=== PATIENT | female | born 1950 | race Caucasian/White ===

== ENCOUNTER 2016-11-23 04:25 | Inpatient (IN) | payer MEDICARE, OTHER ==
[2016-11-23] VITALS (12 sets, daily range): BP systolic 115–216; BP diastolic 70–93; PULSE 72–95; RESP 16–18; TEMP 97.6; O2SAT 95–98
[~2016-11-23 04:25] MED LIST: ADVA100A INH; ALPR.5 PO; AMLO10TA2 PO; ASCO500C PO; ASPI325T PO; AZIT250T3 PO; BUPR150XL PO; CALTTAB PO; HYDR-3533 PO; LIPI80TA PO; METO25TA3 PO; MULTCAP13; PLAV75TA29 PO; ROFL1TAB2 PO; SPIRCAP INH
[2016-11-23] MEDS ORDERED: METO25TA3 PO (04:36)
[2016-11-23] MEDS ORDERED: SODIUM CHLORIDE 0.9% FLUSH 5 ML FLUSH IVF PRN ×2 (04:45→06:45)
[2016-11-23] MEDS ORDERED: MORPHINE SULFATE 4 MG/ML INJ IV PUSH ONE (04:45)
[2016-11-23] MEDS ORDERED: ASPIRIN 325 MG TAB PO ONE (04:45)
[2016-11-23] MEDS: METOPROLOL TARTRATE 5 MG/5 ML VIAL IVS SCH ×3 (04:50→05:08)
[2016-11-23] MEDS: NITROGLYCERIN 0.4 MG SL 25 TABS/BTL SL SCH ×3 (04:50→04:56)
--- NOTE | 2016-11-23 04:55 | PD ---
HPI Chief Complaint: Chest Pain Time Seen by Provider: 04:33 Travel History International Travel<30 days: No Contact w/Intl Traveler<30days: No Traveled to known affect area: No History of Present Illness HPI 66 yo F arrives by EMS, c/o chest pain radiating to each shoulder, 10 starting while the patient was at rest, at approx 3am. Hx includes COPD 02 dependent 14/05, CHF, CAD, HTN, & HLD. Pt currnetly ongoing IV abx tx as outpt at Dr Patton office ertapenam and decadron for PNA. She took ASA 325mg at home. PFSH Past Medical History Hx Anticoagulant Therapy: Yes (PLAVIX) Arthritis: Yes Asthma: No Autoimmune Disease: No Blood Disorders: No Anxiety: Yes Depression: Yes Heart Rhythm Problems: No Cancer: No Cardiac Catheterization: Yes Cardiovascular Problems: Yes ([place] X2 ) High Cholesterol: Yes Chemotherapy: No Chest Pain: No Congestive Heart Failure: Yes COPD: Yes (HOME OXYGEN 3L ) Cerebrovascular Accident: No Diabetes: No Diminished Hearing: Yes ([place]) Endocrine: Yes Gastrointestinal Disorders: No GERD: No Genitourinary: Yes Headaches: No Hiatal Hernia: No Hypertension: Yes Immune Disorder: No Implanted Vascular Access Dvce: Yes Kidney Stones: Yes Musculoskeletal: Yes Neurologic: No Psychiatric: Yes Reproductive: No Respiratory: Yes (COPD) Integumentary: No Immunizations Current: Yes Myocardial Infarction: Yes ([place] 1996, 2007-history of [place] and CHF on ventilator) Radiation Therapy: No Renal Failure: No Seizures: No Sickle Cell Disease: No Sleep Apnea: Yes Thyroid Disease: Yes (3 LOBES SURGICALLY REMOVED) Ulcer: Yes Menopausal: Yes : 3 Para: 3 Miscarriage: 0 Tubal Ligation: Yes Past Surgical History Abdominal Surgery: Yes AICD: No Appendectomy: Yes Arteriovenous Shunt: No Body Medical Devices: 2 PLATES LEFT LEG Cardiac Surgery: Yes (CARDIAC STENTS) Coronary Artery Bypass Graft: No Coronary Stent: Yes (X2 1996) Endocrine Surgery: Yes (THYROIDECTOMY ) Hysterectomy: No Insulin Pump: No Joint Replacement: No Pacemaker: No Other Surgery: Yes (APPENDECTOMY 1970, THYROIDECTOMY 1985, HERNIA REPAIR 10/06 ) Social History Alcohol Use: No Tobacco Use: No (NONE SINCE 09/28) Substance Use: No Allergies-Medications (Allergen,Severity, Reaction): Coded Allergies: Lisinopril (Verified Allergy, Severe, COUGH, 09/23/16) NEW ALLERGRY FROM DR. GUADARRAMA'S OFFICE Reported Meds & Prescriptions Reported Meds & Active Scripts Active Reported Metoprolol Tartrate 25 Mg Tab 25 Mg PO BID Azithromycin 250 Mg Tab 250 Mg PO DIRECTED Take 2 tabs (500 mg) on day 1 then 1 tab daily x 4 days. Caltrate 600+D (Calcium Carbonate-Cholecalciferol) 600-800 Mg-Unit Tab 1 Tab PO BID Vitamin C (Ascorbic Acid) 500 Mg Cap 500 Mg PO Multi Complete (Multiple Vitamins W/ Minerals) 1 Cap Cap Spiriva Handihaler (Tiotropium Inh) 18 Mcg Cap 18 Mcg INH DAILY 1 capsule = 18 mcg Advair Diskus Inh (Fluticasone-Salmeterol Inh) 100-50 Mcg/Blist Aer 1 Puff INH BID Rinse mouth after use. Daliresp (Roflumilast) 500 Mcg Tab 500 Mcg PO DAILY Amlodipine (Amlodipine Besylate) 10 Mg Tab 10 Mg PO DAILY Lipitor (Atorvastatin Calcium) 80 Mg Tab 80 Mg PO HS Wellbutrin Xl 24 HR (Bupropion HCl) 150 Mg Tab 150 Mg PO BID Xanax (Alprazolam) 0.5 Mg Tab 0.5 Mg PO BID PRN Aspirin 325 Mg Tab 325 Mg PO DAILY Plavix (Clopidogrel Bisulfate) 75 Mg Tab 75 Mg PO DAILY Review of Systems Except as stated in HPI: all other systems reviewed are Neg Physical Exam Narrative GENERAL: 66 yo F, pleasant, mild distress 2/2 pain and/or anxiety SKIN: Warm and dry. HEAD: Atraumatic. Normocephalic. EYES: Pupils equal and round. No scleral icterus. No injection or drainage. ENT: No nasal bleeding or discharge. Mucous membranes pink and moist. NECK: Trachea midline. No JVD. CARDIOVASCULAR: Tachycardia. Regular rhythm. RESPIRATORY: No accessory muscle use. Clear to auscultation. Breath sounds equal bilaterally. GASTROINTESTINAL: Abdomen soft, non-tender, nondistended. Hepatic and splenic margins not palpable. MUSCULOSKELETAL: Extremities without clubbing, cyanosis, or edema. No obvious deformities. NEUROLOGICAL: Awake and alert. No obvious cranial nerve deficits. Motor grossly within normal limits. Five out of 5 muscle strength in the arms and legs. Normal speech. PSYCHIATRIC: Appropriate mood and affect; insight and judgment normal. Data Data Last Documented VS Vital Signs Date Time Temp Pulse Resp B/P Pulse Ox O2 Delivery O2 Flow Rate FiO2 11/23/16 06:16 81 18 178/80 97 Nasal Cannula 3 11/23/16 04:28 97.6 Orders Electrocardiogram (11/23/16 04:33) Ckmb (Isoenzyme) Profile (11/23/16 04:33) Complete Blood Count With Diff (11/23/16 04:33) Comprehensive Metabolic Panel (11/23/16 04:33) Magnesium (Mg) (11/23/16 04:33) Prothrombin Time / Inr (Pt) (11/23/16 04:33) Act Partial Throm Time (Ptt) (11/23/16 04:33) Troponin I (11/23/16 04:33) Lipase (11/23/16 04:33) Chest, Single Ap (11/23/16 04:33) Ecg Monitoring (11/23/16 04:33) Iv Access Insert/Monitor (11/23/16 04:33) Oximetry (11/23/16 04:33) Oxygen Administration (11/23/16 04:33) Aspirin (Aspirin) (11/23/16 04:45) Morphine Inj (Morphine Inj) (11/23/16 04:45) Sodium Chloride 0.9% Flush (Ns Flush) (11/23/16 04:45) Nitroglycerin Sl (Nitrostat Sl) (11/23/16 04:45) Metoprolol Tartrate Inj (Lopressor Inj) (11/23/16 04:45) B-Type Natriuretic Peptide (11/23/16 05:02) Admit Order (Ed Use Only) (11/23/16 06:35) Activity Bed Rest With Brp (11/23/16 06:35) Vital Signs (Adult) Q4H (11/23/16 06:35) Cardiac Rhythm .As Directed (11/23/16 06:35) ^ Notify Dr: Other .PRN (11/23/16 06:35) ^ Notify . Parameters (11/23/16 06:35) Resp Oxygen Nasal Cannula (11/23/16 ) Ckmb (Isoenzyme) Profile (11/23/16 06:35) Ckmb (Isoenzyme) Profile (11/23/16 09:35) Troponin I (11/23/16 06:35) Troponin I (11/23/16 09:35) Electrocardiogram (11/23/16 06:35) Electrocardiogram (11/23/16 09:35) ^ Obtain (11/23/16 06:35) Sodium Chloride 0.9% Flush (Ns Flush) (11/23/16 06:45) Sodium Chloride 0.9% Flush (Ns Flush) (11/23/16 09:00) Acetamin-Hydrocod 325-7.5 Mg ([place] 7.5 (11/23/16 06:45) Morphine Inj (Morphine Inj) (11/23/16 06:45) Ondansetron Inj (Zofran Inj) (11/23/16 06:45) Nitroglycerin Sl (Nitrostat Sl) (11/23/16 06:45) Temazepam (Restoril) (11/23/16 06:45) Alprazolam (Xanax) (11/23/16 06:45) Magazine Filler / Telemetry KERVIN.Q8H (11/23/16 06:35) Labs Laboratory Tests Test 11/23/16 04:40 White Blood Count 15.9 TH/MM3 Red Blood Count 4.80 MIL/MM3 Hemoglobin 13.4 GM/DL Hematocrit 40.3 % Mean Corpuscular Volume 84.0 FL Mean Corpuscular Hemoglobin 27.8 PG Mean Corpuscular Hemoglobin 33.1 % Concent Red Cell Distribution Width 13.6 % Platelet Count 303 TH/MM3 Mean Platelet Volume 8.7 FL Neutrophils (%) (Auto) 85.3 % Lymphocytes (%) (Auto) 10.1 % Monocytes (%) (Auto) 4.3 % Eosinophils (%) (Auto) 0.1 % Basophils (%) (Auto) 0.2 % Neutrophils # (Auto) 13.6 TH/MM3 Lymphocytes # (Auto) 1.6 TH/MM3 Monocytes # (Auto) 0.7 TH/MM3 Eosinophils # (Auto) 0.0 TH/MM3 Basophils # (Auto) 0.0 TH/MM3 CBC Comment DIFF FINAL Differential Comment Prothrombin Time 10.2 SEC Prothromb Time International 0.9 RATIO Ratio Activated Partial 24.7 SEC Thromboplast Time Sodium Level 139 MEQ/L Potassium Level 3.5 MEQ/L Chloride Level 100 MEQ/L Carbon Dioxide Level 27.5 MEQ/L Anion Gap 12 MEQ/L Blood Urea Nitrogen 24 MG/DL Creatinine 0.82 MG/DL Estimat Glomerular Filtration 70 ML/MIN Rate Random Glucose 165 MG/DL Calcium Level 9.2 MG/DL Magnesium Level 1.8 MG/DL Total Bilirubin 0.3 MG/DL Aspartate Amino Transf 15 U/L (AST/SGOT) Alanine Aminotransferase 22 U/L (ALT/SGPT) Alkaline Phosphatase 66 U/L Total Creatine Kinase 60 U/L Troponin I LESS THAN 0.02 NG/ML B-Type Natriuretic Peptide 44 PG/ML Total Protein 7.2 GM/DL Albumin 3.5 GM/DL Lipase 95 U/L [facility] Medical Decision Making Medical Screen Exam Complete: Yes Emergency Medical Condition: Yes Medical Record Reviewed: Yes Differential Diagnosis NSTEMI, unstable angina, coronary vasospasm, PE, PTX, aortic dissection, pericarditis, myocarditis, endocarditis, PNA, esophageal disease, aneurysm, musculoskeletal etiologies, anxiety, cocaine/sympathomimetic abuse Narrative Course EKG: sinus, rate 97, non-specific ST depressions Last 24 hours Impressions Chest X-Ray 11/23/16 0433 Signed Impressions: Service Date/Time: November 04:43 - CONCLUSION: 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 No acute infiltrates seen. Blayne Loera MD CBC & BMP Diagram 11/23/16 04:40 LFTs normal Lipase normal Tn < 0.02 BNP 44 INR 0.9 Etiology of chest pain is unclear. [employer] work up considered reasonable disposition. As of 633AM pt reports resolution of chest pain. Diagnosis Primary Impression: Chest pain Qualified Code: R07.9 - Chest pain, unspecified type Admitting Information Admitting Physician Requests: Trever Montgomery MD Nov 23, 2016 04:55
[2016-11-23 04:57] LABS: AUTOMATED NEUTROPHIL # 13.6 TH/MM3 (1.8-7.7); BASOPHIL % 0.2 % (0.0-2.0); EOSINOPHIL % 0.1 % (0.0-4.0); HEMATOCRIT 40.3 % (35.0-46.0); HEMO FLAGS DIFF FINAL; LYMPH % 10.1 % (9.0-44.0); LYMPHOCYTE # 1.6 TH/MM3 (1.0-4.8); MEAN CORPUSCULAR HEMOGLOBIN 27.8 PG (27.0-34.0); MEAN CORPUSCULAR HGB CONC 33.1 % (32.0-36.0); MONO % 4.3 % (0.0-8.0); NEUT % 85.3 % (16.0-70.0); PLATELET COUNT 303 TH/MM3 (150-450); RED CELL DISTRIBUTION WIDTH 13.6 % (11.6-17.2); WHITE BLOOD COUNT 15.9 TH/MM3 (4.0-11.0)
[2016-11-23 05:04] LABS: APTT (PATIENT) 24.7 SEC (24.3-30.1); INTERNATIONAL NORMALIZED RATIO 0.9 RATIO; PROTHROMBIN TIME - PATIENT 10.2 SEC (9.8-11.6)
--- NOTE | 2016-11-23 05:15 | RADRPT ---
EXAM DATE/TIME: 11/23/2016 04:43 [facility] COMPARISON: CHEST SINGLE AP, March 06, 2016, 13:37. INDICATIONS : Patient states chest pains. MEDICAL HISTORY : Hypertension. Chronic obstructive pulmonary disease. Myocardial infarction. Hypothyroidism SURGICAL HISTORY : Coronary artery stent. Appendectomy. ENCOUNTER: Initial ACUITY: 1 day PAIN SCORE: 6/10 LOCATION: Bilateral chest FINDINGS: Hyperexpanded lungs with mild basilar predominant chronic interstitial opacities again noted. No acut e infiltrate. No pleural effusion or pneumothorax. Heart size stable, within normal limits. There is bilateral prominence of the pulmonary arteries. 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 No acute infiltrates seen. Blayne Loera MD on November 23, 2016 at 5:12 Board Certified Radiologist. This report was verified electronically.
[2016-11-23 05:25] LABS: ANION GAP 12 MEQ/L (5-15); AST (GOT) 15 U/L (15-37); BICARBONATE 27.5 MEQ/L (21.0-32.0); BLOOD UREA NITROGEN 24 MG/DL (7-18); CHLORIDE 100 MEQ/L (98-107); GLOMERULAR FILTRATION RATE 70 ML/MIN (>89); MAGNESIUM 1.8 MG/DL (1.5-2.5); POTASSIUM 3.5 MEQ/L (3.5-5.1); SODIUM (NA) 139 MEQ/L (136-145)
[2016-11-23 05:29] LABS: ALKALINE PHOSPHATASE 66 U/L (45-117); ALT (GPT) 22 U/L (10-53); TOTAL BILIRUBIN ADULT 0.3 MG/DL (0.2-1.0)
[2016-11-23 05:49] LABS: CREATINE KINASE 60 U/L (26-192)
[2016-11-23] MEDS ORDERED: NITROGLYCERIN 0.4 MG SL 25 TABS/BTL SL PRN (06:45)
[2016-11-23] MEDS ORDERED: ONDANSETRON HCL 4 MG/2 ML VIAL IV PRN (06:45)
[2016-11-23] MEDS ORDERED: MORPHINE SULFATE 4 MG/ML INJ IV PRN (06:45)
[2016-11-23] MEDS ORDERED: TEMAZEPAM 15 MG CAP PO PRN (06:45)
[2016-11-23] MEDS ORDERED: ACETAMINOPHEN/HYDROcodone 325 MG/7.5 MG TAB PO PRN (06:45)
--- NOTE | 2016-11-23 09:39 | PD ---
Physical Exam Date Seen by Provider: Nov 23, 2016 Time Seen by Provider: 09:00 Narrative Patient initially seen by Dr. Contreras overnight and admitted to the chest pain center. However, this morning, patient's second set of cardiac enzymes were elevating to 0.15. On reevaluation at this point, EKG did not show any signs of acute ST changes. Patient is resting comfortably, denies any chest pains currently. She had been given aspirin last night. At this point, case is discussed with Dr. Sevilla for medical admission and she will need cardiology consultation. He is agreeable to accept the admission. Data Data Last Documented VS Vital Signs Date Time Temp Pulse Resp B/P Pulse Ox O2 Delivery O2 Flow Rate FiO2 11/23/16 06:16 81 18 178/80 97 Nasal Cannula 3 11/23/16 04:28 97.6 Orders Electrocardiogram (11/23/16 04:33) Ckmb (Isoenzyme) Profile (11/23/16 04:33) Complete Blood Count With Diff (11/23/16 04:33) Comprehensive Metabolic Panel (11/23/16 04:33) Magnesium (Mg) (11/23/16 04:33) Prothrombin Time / Inr (Pt) (11/23/16 04:33) Act Partial Throm Time (Ptt) (11/23/16 04:33) Troponin I (11/23/16 04:33) Lipase (11/23/16 04:33) Chest, Single Ap (11/23/16 04:33) Ecg Monitoring (11/23/16 04:33) Iv Access Insert/Monitor (11/23/16 04:33) Oximetry (11/23/16 04:33) Oxygen Administration (11/23/16 04:33) Aspirin (Aspirin) (11/23/16 04:45) Morphine Inj (Morphine Inj) (11/23/16 04:45) Sodium Chloride 0.9% Flush (Ns Flush) (11/23/16 04:45) Nitroglycerin Sl (Nitrostat Sl) (11/23/16 04:45) Metoprolol Tartrate Inj (Lopressor Inj) (11/23/16 04:45) B-Type Natriuretic Peptide (11/23/16 05:02) Admit Order (Ed Use Only) (11/23/16 06:35) Activity Bed Rest With Brp (11/23/16 06:35) Vital Signs (Adult) Q4H (11/23/16 06:35) Cardiac Rhythm .As Directed (11/23/16 06:35) ^ Notify Dr: Other .PRN (11/23/16 06:35) ^ Notify Dr. Parameters (11/23/16 06:35) Resp Oxygen Nasal Cannula (11/23/16 ) Ckmb (Isoenzyme) Profile (11/23/16 06:35) Ckmb (Isoenzyme) Profile (11/23/16 09:35) Troponin I (11/23/16 06:35) Troponin I (11/23/16 09:35) Electrocardiogram (11/23/16 06:35) Electrocardiogram (11/23/16 09:35) ^ Obtain (11/23/16 06:35) Sodium Chloride 0.9% Flush (Ns Flush) (11/23/16 06:45) Sodium Chloride 0.9% Flush (Ns Flush) (11/23/16 09:00) Acetamin-Hydrocod 325-7.5 Mg ([place] 7.5 (11/23/16 06:45) Morphine Inj (Morphine Inj) (11/23/16 06:45) Ondansetron Inj (Zofran Inj) (11/23/16 06:45) Nitroglycerin Sl (Nitrostat Sl) (11/23/16 06:45) Temazepam (Restoril) (11/23/16 06:45) Alprazolam (Xanax) (11/23/16 06:45) Habilitative Interventionist / Telemetry KERVIN.Q8H (11/23/16 06:35) Labs Laboratory Tests Test 11/23/16 04:40 White Blood Count 15.9 TH/MM3 Red Blood Count 4.80 MIL/MM3 Hemoglobin 13.4 GM/DL Hematocrit 40.3 % Mean Corpuscular Volume 84.0 FL Mean Corpuscular Hemoglobin 27.8 PG Mean Corpuscular Hemoglobin 33.1 % Concent Red Cell Distribution Width 13.6 % Platelet Count 303 TH/MM3 Mean Platelet Volume 8.7 FL Neutrophils (%) (Auto) 85.3 % Lymphocytes (%) (Auto) 10.1 % Monocytes (%) (Auto) 4.3 % Eosinophils (%) (Auto) 0.1 % Basophils (%) (Auto) 0.2 % Neutrophils # (Auto) 13.6 TH/MM3 Lymphocytes # (Auto) 1.6 TH/MM3 Monocytes # (Auto) 0.7 TH/MM3 Eosinophils # (Auto) 0.0 TH/MM3 Basophils # (Auto) 0.0 TH/MM3 CBC Comment DIFF FINAL Differential Comment Prothrombin Time 10.2 SEC Prothromb Time International 0.9 RATIO Ratio Activated Partial 24.7 SEC Thromboplast Time Sodium Level 139 MEQ/L Potassium Level 3.5 MEQ/L Chloride Level 100 MEQ/L Carbon Dioxide Level 27.5 MEQ/L Anion Gap 12 MEQ/L Blood Urea Nitrogen 24 MG/DL Creatinine 0.82 MG/DL Estimat Glomerular Filtration 70 ML/MIN Rate Random Glucose 165 MG/DL Calcium Level 9.2 MG/DL Magnesium Level 1.8 MG/DL Total Bilirubin 0.3 MG/DL Aspartate Amino Transf 15 U/L (AST/SGOT) Alanine Aminotransferase 22 U/L (ALT/SGPT) Alkaline Phosphatase 66 U/L Total Creatine Kinase 60 U/L Troponin I LESS THAN 0.02 NG/ML B-Type Natriuretic Peptide 44 PG/ML Total Protein 7.2 GM/DL Albumin 3.5 GM/DL Lipase 95 U/L [facility] Medical Record Reviewed: Yes Supervised Visit with JIMMY: No Diagnosis Primary Impression: Chest pain Qualified Code: R07.9 - Chest pain, unspecified type Admitting Information Admitting Physician Requests: it Coby Mendez MD Nov 23, 2016 09:39
[2016-11-23] MEDS: SODIUM CHLORIDE 0.9% FLUSH 5 ML FLUSH IVF SCH ×2 (10:21→23:10)
[2016-11-23] MEDS ORDERED: HEPARIN-D5W INJ 250 ML IV SCH (11:45)
[2016-11-23] MEDS ORDERED: HEPARIN SODIUM - IV 10,000 UNITS/10 ML VIAL IV ONE (11:45)
[2016-11-23] MEDS ORDERED: METOPROLOL TARTRATE 25 MG TAB PO ONE (15:00)
[2016-11-23] MEDS: ASPIRIN 325 MG TAB PO SCH (15:30)
[2016-11-23 15:41] LABS: HEMATOCRIT 38.8 % (35.0-46.0); MEAN CELL VOLUME 83.7 FL (80.0-100.0); MEAN CORPUSCULAR HEMOGLOBIN 27.7 PG (27.0-34.0); MEAN CORPUSCULAR HGB CONC 33.1 % (32.0-36.0); PLATELET COUNT 295 TH/MM3 (150-450); RED BLOOD COUNT 4.63 MIL/MM3 (4.00-5.30); RED CELL DISTRIBUTION WIDTH 14.1 % (11.6-17.2); REVIEW FLAG FINAL; WHITE BLOOD COUNT 17.8 TH/MM3 (4.0-11.0)
[2016-11-23 15:50] LABS: APTT (PATIENT) 65.5 SEC (24.3-30.1); PROTHROMBIN TIME - PATIENT 10.7 SEC (9.8-11.6)
[2016-11-23] MEDS: ALPRAZolam 0.25 MG TAB PO PRN (16:16)
--- NOTE | 2016-11-23 17:40 | HHI.HP ---
cc: Piper Guadarrama MD [facility]ician Piper Guadarrama MD Admission Diagnosis Chest Pain Diagnoses: Chief Complaint: chest pain Travel History International Travel<30 Days: No Contact w/Intl Traveler <30 Da: No Traveled to Known Affected Are: No History of Present Illness 66-year-old female with hx of COPD O2 dependent, CHF, CAD with cardiac stents, HTN, HLD, presents with chest pains, cough, shortness of breath. The patient reports approximately 2 weeks ago she started not feeling well with cough, shortness of breath, and decreased energy. She saw her bottle washer machine Dr. Heart, started on prednisone and completed course of oral antibiotics. She still wasn't feeling well this week so she saw her bottle washer machine Dr. Heart this past Wednesday 11/22, told her she has a left lobe infiltrate and started her on IV infusions with Ertapenem and Decadron. Then early this morning around 3am started having chest tightness while at rest, rated 5/10, with radiation into the shoulders. She thought it could be her COPD with congestion so she took a Sudafed however still wasn't feeling well. 911 was called and she was transported here via [facility]. She was given nitroglycerin en route and her chest pain started improving. The patient had a nuclear stress test in Sep 2016 that showed small size moderate severity fixed perfusion abnormality, no ischemia, low risk. Since her arrival to the ED, her chest pain has resolved however her troponins are trending up, 0.02, 0.15, 0.41. She states her cough and shortness of breath feels at baseline with her COPD. She has no other medical complaints at this time including no fevers/chills, sore throat, abdominal or urinary complaints. Review of Systems Constitutional: DENIES: Diaphoretic episodes, Fever, Chills, Dizziness Endocrine: DENIES: Polydipsia, Polyuria, Polyphagia Eyes: DENIES: Blurred vision, Eye pain, Double Vision Ears, nose, mouth, throat: DENIES: Throat pain, Running Nose, Odynophagia Respiratory: COMPLAINS OF: Cough, Shortness of breath, DENIES: Wheezing Cardiovascular: COMPLAINS OF: Chest pain, DENIES: Palpitations, Syncope, Dyspnea on Exertion, Lower Extremity Edema Gastrointestinal: DENIES: Abdominal pain, Constipation, Diarrhea, Nausea, Vomiting Genitourinary: DENIES: Urinary frequency, Urgency, Dysuria Musculoskeletal: DENIES: Back pain, Neck pain Integumentary: DENIES: Abnormal pigmentation, Pruritus, Rash Hematologic/lymphatic: DENIES: Bruising, Lymphadenopathy Immunologic/allergic: DENIES: Eczema, Urticaria Neurologic: DENIES: Abnormal gait, Headache, Localized weakness Psychiatric: DENIES: Anxiety, Depression Past Family Social History Past Medical History COPD, O2 dependent HTN HI x2, with cardiac stents HLD CHF Past Surgical History Appendectomy Partial thyroidectomy Hernia repair Cardiac cath with stent placement 2 plates left leg Reported Medications Metoprolol Tartrate 25 Mg Tab 25 Mg PO BID Azithromycin 250 Mg Tab 250 Mg PO DIRECTED Take 2 tabs (500 mg) on day 1 then 1 tab daily x 4 days. Caltrate 600+D (Calcium Carbonate-Cholecalciferol) 600-800 Mg-Unit Tab 1 Tab PO BID Vitamin C (Ascorbic Acid) 500 Mg Cap 500 Mg PO Multi Complete (Multiple Vitamins W/ Minerals) 1 Cap Cap Spiriva Handihaler (Tiotropium Inh) 18 Mcg Cap 18 Mcg INH DAILY 1 capsule = 18 mcg Advair Diskus Inh (Fluticasone-Salmeterol Inh) 100-50 Mcg/Blist Aer 1 Puff INH BID Rinse mouth after use. Daliresp (Roflumilast) 500 Mcg Tab 500 Mcg PO DAILY Amlodipine (Amlodipine Besylate) 10 Mg Tab 10 Mg PO DAILY Lipitor (Atorvastatin Calcium) 80 Mg Tab 80 Mg PO HS Wellbutrin Xl 24 HR (Bupropion HCl) 150 Mg Tab 150 Mg PO BID Xanax (Alprazolam) 0.5 Mg Tab 0.5 Mg PO BID PRN Aspirin 325 Mg Tab 325 Mg PO DAILY Plavix (Clopidogrel Bisulfate) 75 Mg Tab 75 Mg PO DAILY Allergies: Coded Allergies: Lisinopril (Verified Allergy, Severe, COUGH, 09/23/16) NEW ALLERGRY FROM DR. GUADARRAMA'S OFFICE Active Ordered Medications Current Medications Medications (Trade) Dose Ordered Sig/Matthew Route Start Time Stop Time Status Last Admin (NS Flush) 2 ml UNSCH PRN IVF 11/23/16 06:45 (NS Flush) 2 ml BID IVF 11/23/16 09:00 11/23/16 10:21 ([place] 7.5-325 Mg) 1 tab Q4H PRN PO 11/23/16 06:45 (Morphine Inj) 2 mg Q4H PRN IV 11/23/16 06:45 (Zofran Inj) 4 mg Q6H PRN IV 11/23/16 06:45 (Nitrostat Sl) 0.4 mg Q5M PRN SL 11/23/16 06:45 (Restoril) 15 mg HS PRN PO 11/23/16 06:45 (Xanax) 0.25 mg Q8H PRN PO 11/23/16 06:45 11/23/16 16:16 (Heparin Inj) 5,000 units UNSCH PRN IV 11/23/16 17:45 Heparin Sodium (Porcine) 2500 units 2,500 units UNSCH PRN IV 11/23/16 17:45 (Heparin-D5W Inj) 250 ml @ 0 mls/hr TITRATE IV 11/23/16 11:45 11/23/16 12:53 (Norvasc) 10 mg DAILY PO 11/23/16 15:30 11/23/16 16:15 (Aspirin) 325 mg DAILY PO 11/23/16 15:30 (Lipitor) 80 mg HS PO 11/23/16 21:00 (Wellbutrin Sr) 150 mg BID PO 11/23/16 21:00 (Plavix) 75 mg DAILY PO 11/24/16 09:00 (Lopressor) 25 mg BID PO 11/23/16 21:00 (Daliresp) 500 mcg DAILY PO 11/24/16 09:00 (Spiriva Inh) 18 mcg DAILY INH 11/24/16 09:00 (Oscal-D 250-125) 500 mg BID PO 11/23/16 21:00 (Symbicort 80-4.5 Mcg Inh) 2 puff BID INH 11/23/16 21:00 Family History Reviewed, no history of heart disease, diabetes Social History Tobacco use - quit in 2007, smoked >1 PPD Alcohol use- denies Illicit drug use- denies Physical Exam Vital Signs Vital Signs Date Time Temp Pulse Resp B/P Pulse Ox O2 Delivery O2 Flow Rate FiO2 11/23/16 14:32 74 18 185/79 97 Nasal Cannula 3 11/23/16 10:15 79 18 182/81 97 Nasal Cannula 3 11/23/16 06:57 98 Nasal Cannula 3.00 11/23/16 06:16 81 18 178/80 97 Nasal Cannula 3 11/23/16 05:31 18 97 3 11/23/16 05:30 83 187/84 195/85 11/23/16 04:37 97 Nasal Cannula 3 11/23/16 04:30 97 18 97 Nasal Cannula 3 11/23/16 04:28 97.6 95 18 216/93 96 Physical Exam GENERAL: Well-nourished, well-developed female patient in NAD. SKIN: Warm and dry. No rash. HEAD: Normocephalic. Atraumatic. EYES: Pupils equal and round. No scleral icterus. No injection or drainage. ENT: No nasal bleeding or discharge. Mucous membranes pink and moist. NECK: Supple. Trachea midline. CARDIOVASCULAR: Regular rate and rhythm. S1, S2 noted. No murmur appreciated. RESPIRATORY: No accessory muscle use. Clear to auscultation. Breath sounds equal bilaterally. GASTROINTESTINAL: Abdomen soft, non-tender, nondistended. Normoactive bowel sounds x4. MUSCULOSKELETAL: No obvious deformities. Extremities without clubbing, cyanosis , or edema. NEUROLOGICAL: Awake and alert. No obvious cranial nerve deficits. Motor grossly within normal limits. Normal speech. PSYCHIATRIC: Appropriate mood and affect; insight and judgment normal. Laboratory Laboratory Tests Test 11/23/16 11/23/16 11/23/16 11/23/16 04:40 07:16 09:50 14:38 White Blood Count 15.9 17.8 Red Blood Count 4.80 4.63 Hemoglobin 13.4 12.8 Hematocrit 40.3 38.8 Mean Corpuscular Volume 84.0 83.7 Mean Corpuscular Hemoglobin 27.8 27.7 Mean Corpuscular Hemoglobin 33.1 33.1 Concent Red Cell Distribution Width 13.6 14.1 Platelet Count 303 295 Mean Platelet Volume 8.7 8.9 Neutrophils (%) (Auto) 85.3 Lymphocytes (%) (Auto) 10.1 Monocytes (%) (Auto) 4.3 Eosinophils (%) (Auto) 0.1 Basophils (%) (Auto) 0.2 Neutrophils # (Auto) 13.6 Lymphocytes # (Auto) 1.6 Monocytes # (Auto) 0.7 Eosinophils # (Auto) 0.0 Basophils # (Auto) 0.0 CBC Comment DIFF FINAL Differential Comment Prothrombin Time 10.2 10.7 Prothromb Time International 0.9 1.0 Ratio Activated Partial 24.7 65.5 Thromboplast Time Sodium Level 139 Potassium Level 3.5 Chloride Level 100 Carbon Dioxide Level 27.5 Anion Gap 12 Blood Urea Nitrogen 24 Creatinine 0.82 Estimat Glomerular Filtration 70 Rate Random Glucose 165 Calcium Level 9.2 Magnesium Level 1.8 Total Bilirubin 0.3 Aspartate Amino Transf 15 (AST/SGOT) Alanine Aminotransferase 22 (ALT/SGPT) Alkaline Phosphatase 66 Total Creatine Kinase 60 57 57 Troponin I LESS THAN 0.02 0.15 0.41 B-Type Natriuretic Peptide 44 Total Protein 7.2 Albumin 3.5 Lipase 95 Result Diagram: 11/23/16 1438 11/23/16 0440 Imaging Last Impressions Chest X-Ray 11/23/16 0433 Signed Impressions: Service Date/Time: November 04:43 - CONCLUSION: 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 No acute infiltrates seen. Blayne Loera MD Assessment and Plan Problem List: (1) Chest pain ICD Code: R07.9 Status: Acute Assessment and Plan 66-year-old female with hx of COPD O2 dependent, CHF, CAD with cardiac stents, HTN, HLD, presents with chest pains. NSTEMI with hx of CAD s/p stents: chest pain with troponins 0.02, 0.15, 0.41. EKG with no acute ST-T changes. Started on IV Heparin drip. Nuclear stress test in Sep 2016 that showed small size moderate severity fixed perfusion abnormality , no ischemia, low risk.Consulted cardiology, discussed with Dr. Contreras, troponin elevated likely secondary to accelerated hypertension, recommends continue medical management for now. Continue patient's metoprolol, aspirin, plavix, statin. Monitor on telemetry. Monitor serial troponins. Accelerated Hypertension: BP 216/93 upon arrival. Likely secondary to recent steroid use and patient's BP meds recently decreased by PCP. Continue patient's metoprolol, norvasc. Recent Pneumonia: patient completed course of azithro as outpatient, then yesterday 11/22 given dose of IV Ertapenem as outpatient per her bottle washer machine Dr. Patton. CXR upon admission unremarkable, images reviewed by me. Discussed with the patient no indication for antibiotics at this time. Monitor for fevers. Leukocytosis: likely steroid induced. No signs of acute infection at this time. Check UA. Monitor. Chronic Respiratory Failure secondary to COPD, on home O2: chronic, stable, continue patient's Spiriva, Advair. HLD: chronic, continue statin. Anxiety/Depression: chronic, continue patient's Wellbutrin and xanax prn. DVT Prophylaxis: on heparin drip. Written by Migdalia Butcher, acting as scribe for Dr. Sevilla on 11/23/16 at 18: 02. The documentation accurately reflects the work performed [id number] by me on at 18:02. Discussed Condition With Patient, Dr. Contreras, patient's daughter Physician Certification 2 Midnight Certification Type: Admission for Inpatient Services Order for Inpatient Services The services are ordered in accordance with Medicare regulations or non- Medicare payer requirements, as applicable. In the case of services not specified as inpatient-only, they are appropriately provided as inpatient services in accordance with the 2-midnight benchmark. Estimated LOS (days): 2 days is the estimated time the patient will need to remain in the hospital, assuming treatment plan goals are met and no additional complications. Post-Hospital Plan: Home Problem Qualifiers (1) Chest pain: Qualified Code: R07.9 - Chest pain, unspecified type Migdalia Butcher PA-C Nov 23, 2016 17:40 Rambo Le MD Nov 28, 2016 13:25
[2016-11-23] MEDS ORDERED: HEPARIN SODIUM - IV 10,000 UNITS/10 ML VIAL IV PRN ×2 (17:45)
--- NOTE | 2016-11-23 17:47 | MB ---
cc: JOHN BROUSSARD SANDRA L. M.D. ENRIQUETA PAPPAS M.D. DATE OF CONSULTATION: 11/23/2016 PRIMARY CARE PHYSICIAN Piper Buitrago MD. [employer] ELASTIC ATTACHER: Enriqueta Pappas MD. REASON FOR CONSULTATION Chest pain mildly elevated troponin, accelerated hypertension. HISTORY OF PRESENT ILLNESS Renu Rosario is a pleasant 66-year-old female who presents to [place] emergency room on November 23, 2016 after event where she had chest pain, headache, and back pain. She states that she was in her usual health over the past few weeks and then started noticing that she was not feeling great. Her import/export freight forwarder prescribes her antibiotic and steroids for when she needs it. She started the regimen of antibiotics and steroids but as of Sunday was not feeling better. She went to see her import/export freight forwarder she had a chest x-ray and felt that she had a left lower lobe pneumonia and started her on InVance and Dexamethasone IV yesterday. Overnight she woke up with a pounding headache. Has the headache increased she started to get some shortness of breath which she states is chronic for her. She also had some mild chest tightness. She attempted to take Sudafed which did not help so she called her daughter to call for a the ambulance. On arrival she was found to have a blood pressure of 216/93. She was originally admitted to the chest pain unit but on checking her troponins they increased to 0.4 and was she was then admitted to the medicine service. Chest pain went away after her blood pressure decreased. PAST MEDICAL HISTORY 1. Coronary artery disease. 2. COPD on home oxygen. 3. Obesity. 4. Hypertension 5. Anxiety. PAST SURGICAL HISTORY 1. Recent ventral hernia repair (September 26, 2016) 2. Left main stenting (2007) at [facility] 3. Appendectomy. 4. Thyroidectomy. 5. Cardiac catheterization (2007) a left main 70-75%, LAD is medium in caliber and irregular. Circumflex is nondominant with a few small proximal obtuse marginal branches. There is a 70% narrowing in the proximal aspect. RCA has a proximal mid section of 50-70%. ALLERGIES LISINOPRIL MEDICATIONS 1. Aspirin 325 mg daily 2. Plavix 75 mg daily 3. Metoprolol tartrate 25 mg b.i.d. 4. Norvasc 10 mg daily 5. Lipitor 8 mg every night 6. Wellbutrin 150 mg b.i.d. 7. Spiriva 18 mcg daily 8. Xanax 0.5 mg b.i.d. 9. Advair 1 puff b.i.d. 10. Azithromycin 500 mg as needed 11. Daliresp 500 mcg daily. FAMILY HISTORY Denies premature coronary artery disease or sudden cardiac within the family. SOCIAL HISTORY Denies current tobacco, alcohol or drug abuse. REVIEW OF SYSTEMS 14 systems were reviewed in the emergency room records and above pertinent positives and negatives above, otherwise negative. PHYSICAL EXAMINATION VITAL SIGNS Temperature 97.6, heart rate 74, blood pressure 185/79, respirations 18, pulse ox 97% on 3 liters. IN GENERAL: The patient appears well. No acute distress, alert, awake and oriented x3. Extraocular muscles intact. Mucous membranes moist. NECK: Supple. No JVD at 45 degrees. No carotid bruits heard bilaterally. Carotid upstroke is brisk in nature. HEART: Heart is regular rate and rhythm. Positive first and second heart sounds with no murmurs, gallops or rubs. LUNGS: The lungs have decreased breath sounds throughout with mild wheezing. ABDOMEN: Abdomen is soft, nontender sent no organomegaly noted. EXTREMITIES: The extremities have trace edema bilaterally with no clubbing or cyanosis. Femoral and distal pulses intact bilaterally. NEUROLOGICALLLY: No focal deficits. Skin: Warm, dry and intact. Osteopathic with mild lordosis. No kyphoscoliosis or paraspinal tender points. LABORATORY FINDINGS White blood cells 15.9, hemoglobin 13.8, hematocrit 40.3, platelets 303. Potassium 3.5, BUN 24, creatinine 0.82, troponin 0.02 increasing to 0.41. Electrocardiogram (November 23, 2016 at 0734) normal sinus rhythm at 73 beats per minute. No acute ST-T wave changes. IMPRESSION 1. Minimally elevated troponin most likely due to accelerated hypertension 2. Accelerated hypertension, possibly due to recent steroids (prednisone and dexamethasone) as well as Sudafed 3. Headache and chest pain due to emergent hypertension. 4. Known coronary artery disease as above with previous left main stenting (2007) 5. Possible left lower lobe pneumonia per outpatient import/export freight forwarder currently on InVance and steroids. 6. Elevated white blood cell count due to recent steroid use. 7. Recent pharmacologic nuclear stress test (November 26, 2015) showing small size moderate severity fixed perfusion abnormality of the inferior lateral and inferior apex. 8. COPD on home oxygen. RECOMMENDATIONS 1. Renu did have mildly elevated troponin but I believe this is due to her hypertensive episode. I spoke to both Renu and her daughter and they are agreeable to medical management with blood pressure control. I did offer consideration of cardiac catheterization but they would like to hold off on this. 2. Renu was here in September and underwent pharmacologic nuclear stress testing which showed an area of possible infarct in the inferior lateral wall which was small area with no ischemia. We will continue with medical management of her cardiac disease. 3. While here for surgery in September she did have episodes of hypertension and her Lopressor was increased. Upon seeing her primary care physician in the outpatient setting her Lopressor was then decreased back to her normal dose. This may show that she has had more episodes of hypertension outpatient but I believe the major cause may be her recent steroid use for her pulmonary issues. 4. We will attempt to increase her Lopressor and watch her blood pressure overnight. 5. I think it is reasonable to keep her on heparin for 24 hours and if the blood pressure is better tomorrow to stop Heparin and possible discharge with close follow-up outpatient for blood pressure control. 6. Further recommendations will be made based on hospital course. Thank you for allowing me to see Renu Rosario, if there are any questions please do not hesitate to call. John Broussard DO VGP/monserrat /2:37 PM /5:06 PM [place]
[2016-11-23 20:42] LABS: BLOOD, URINE LARGE (NEG); COMMENT (UR) CULT NOT INDICATED; CULTURE IF INDICATED CULT NOT INDICATED; GLUCOSE,URINE NEG (NEG); HYALINE CAST, URINE 1 /lpf (RARE); KETONE, URINE NEG (NEG); MUCUS URINE FEW /lpf (OCC); NITRITE,URINE NEG (NEG); PH, URINE 6.5 (5.0-8.5); SQUAMOUS EPITHELIAL CELL URINE 1 /hpf (0-5); URINE COLOR YELLOW (YELLW/STRAW)
[2016-11-23] MEDS ORDERED: METOPROLOL TARTRATE 50 MG TAB PO SCH (21:00)
[2016-11-23] MEDS ORDERED: ATORVASTATIN 80 MG TAB PO SCH (21:00)
[2016-11-23 21:37] LABS: APTT (PATIENT) 40.1 SEC (24.3-30.1)
[2016-11-23] MEDS: BUDESONIDE-FORMOTEROL 80/4.5 MCG INHALER INH SCH (23:10)
[2016-11-23] MEDS: CALCIUM/VITAMIN D 250 MG/125 U TAB PO SCH (23:10)
[2016-11-23] MEDS: METOPROLOL TARTRATE 25 MG TAB PO SCH (23:11)
[2016-11-23] MEDS: buPROPion HCL 150 MG SUSTAINED RELEASE TAB PO SCH (23:11)
[2016-11-24] MEDS: ALPRAZolam 0.25 MG TAB PO PRN ×2 (02:04→10:28)
--- NOTE | 2016-11-24 06:50 | EKG ---
Date Performed: 11/23/2016 Time Performed: 07:34:24 PTAGE: 66 years EKG: Sinus rhythm NORMAL ECG PREVIOUS TRACING : 11/23/2016 04.28 Compared to prior tracing no significant change DOCTOR: Sid Rubio Interpretating Date/Time 11/24/2016 06:47:28
--- NOTE | 2016-11-24 06:53 | EKG ---
Date Performed: 11/23/2016 Time Performed: 04:28:17 PTAGE: 66 years EKG: Sinus rhythm MODERATE ST DEPRESSION ABNORMAL ECG PREVIOUS TRACING : 09/24/2016 05.59 DOCTOR: Sid Rubio Interpretating Date/Time 11/24/2016 06:50:37
[2016-11-24 08:00] VITALS: O2SAT 97
[2016-11-24 08:16] VITALS: BP 152/67; PULSE 68; RESP 18; TEMP 97.8; O2SAT 97
[2016-11-24] MEDS ORDERED: TIOTROPIUM BROMIDE 18 MCG INH INH SCH (09:00)
[2016-11-24] MEDS ORDERED: CLOPIDOGREL 75 MG TAB PO SCH (09:00)
[2016-11-24] MEDS ORDERED: ROFLUMILAST 500 MCG TAB PO SCH (09:00)
[2016-11-24 09:44] VITALS: PULSE 76
[2016-11-24] MEDS: METOPROLOL TARTRATE 25 MG TAB PO SCH (10:28)
[2016-11-24] MEDS: ASPIRIN 325 MG TAB PO SCH (10:28)
[2016-11-24] MEDS: CALCIUM/VITAMIN D 250 MG/125 U TAB PO SCH (10:29)
[2016-11-24] MEDS: buPROPion HCL 150 MG SUSTAINED RELEASE TAB PO SCH (10:29)
[2016-11-24] MEDS: BUDESONIDE-FORMOTEROL 80/4.5 MCG INHALER INH SCH (10:29)
[2016-11-24] MEDS: SODIUM CHLORIDE 0.9% FLUSH 5 ML FLUSH IVF SCH (10:30)
--- NOTE | 2016-11-24 10:42 | PD.CARD.PN ---
Subjective Subjective Remarks No chest pain, no shortness of breath Objective Medications Current Medications Medications (Trade) Dose Ordered Sig/Matthew Route Start Time Stop Time Status Last Admin (NS Flush) 2 ml UNSCH PRN IVF 11/23/16 06:45 (NS Flush) 2 ml BID IVF 11/23/16 09:00 11/24/16 10:30 ([place] 7.5-325 Mg) 1 tab Q4H PRN PO 11/23/16 06:45 (Morphine Inj) 2 mg Q4H PRN IV 11/23/16 06:45 (Zofran Inj) 4 mg Q6H PRN IV 11/23/16 06:45 (Nitrostat Sl) 0.4 mg Q5M PRN SL 11/23/16 06:45 (Restoril) 15 mg HS PRN PO 11/23/16 06:45 (Xanax) 0.25 mg Q8H PRN PO 11/23/16 06:45 11/24/16 10:28 (Heparin Inj) 5,000 units UNSCH PRN IV 11/23/16 17:45 Heparin Sodium (Porcine) 2500 units 2,500 units UNSCH PRN IV 11/23/16 17:45 (Heparin-D5W Inj) 250 ml @ 0 mls/hr TITRATE IV 11/23/16 11:45 11/23/16 12:53 (Norvasc) 10 mg DAILY PO 11/23/16 15:30 11/24/16 10:29 (Aspirin) 325 mg DAILY PO 11/23/16 15:30 11/24/16 10:28 (Lipitor) 80 mg HS PO 11/23/16 21:00 11/23/16 23:15 (Wellbutrin Sr) 150 mg BID PO 11/23/16 21:00 11/24/16 10:29 (Plavix) 75 mg DAILY PO 11/24/16 09:00 11/24/16 10:29 (Lopressor) 25 mg BID PO 11/23/16 21:00 11/24/16 10:28 (Daliresp) 500 mcg DAILY PO 11/24/16 09:00 11/24/16 10:29 (Spiriva Inh) 18 mcg DAILY INH 11/24/16 09:00 11/24/16 10:29 (Oscal-D 250-125) 500 mg BID PO 11/23/16 21:00 11/24/16 10:29 (Symbicort 80-4.5 Mcg Inh) 2 puff BID INH 11/23/16 21:00 11/24/16 10:29 Vital Signs / I&O Vital Signs Date Time Temp Pulse Resp B/P Pulse Ox O2 Delivery O2 Flow Rate FiO2 11/24/16 09:44 76 11/24/16 08:16 97.8 68 18 152/67 97 11/24/16 08:00 97 11/23/16 20:32 72 16 165/79 97 Nasal Cannula 2 11/23/16 19:46 74 16 188/80 95 Nasal Cannula 2 11/23/16 19:11 97 Nasal Cannula 3.00 11/23/16 17:40 97 Nasal Cannula 3.00 11/23/16 14:32 74 18 185/79 97 Nasal Cannula 3 I/O 11/23/16 11/23/16 11/23/16 11/24/16 11/24/16 11/24/16 07:00 15:00 23:00 07:00 15:00 23:00 Output Total 400 ml Balance -400 ml Output Urine Total 400 ml # Voids 1 Physical Exam GENERAL: NAD, AAOx3 SKIN: Warm and dry. HEAD: Atraumatic. Normocephalic. EYES: Pupils equal and round. No scleral icterus. No injection or drainage. ENT: No nasal bleeding or discharge. Mucous membranes pink and moist. NECK: Trachea midline. No JVD. CARDIOVASCULAR: Regular rate and rhythm. RESPIRATORY: No accessory muscle use. Clear to auscultation. Breath sounds equal bilaterally. GASTROINTESTINAL: Abdomen soft, non-tender, nondistended. Hepatic and splenic margins not palpable. MUSCULOSKELETAL: Extremities without clubbing, cyanosis, or edema. No obvious deformities. NEUROLOGICAL: Awake and alert. No obvious cranial nerve deficits. Motor grossly within normal limits. Five out of 5 muscle strength in the arms and legs. Normal speech. PSYCHIATRIC: Appropriate mood and affect; insight and judgment normal. Laboratory Laboratory Tests Test 11/23/16 11/23/16 11/23/16 11/24/16 14:38 20:00 20:50 03:10 White Blood Count 17.8 TH/MM3 Red Blood Count 4.63 MIL/MM3 Hemoglobin 12.8 GM/DL Hematocrit 38.8 % Mean Corpuscular Volume 83.7 FL Mean Corpuscular Hemoglobin 27.7 PG Mean Corpuscular Hemoglobin 33.1 % Concent Red Cell Distribution Width 14.1 % Platelet Count 295 TH/MM3 Mean Platelet Volume 8.9 FL Prothrombin Time 10.7 SEC Prothromb Time International 1.0 RATIO Ratio Activated Partial 65.5 SEC 40.1 SEC 47.0 SEC Thromboplast Time Urine Color YELLOW Urine Turbidity CLEAR Urine pH 6.5 Urine Specific [place] 1.022 Urine Protein 300 mg/dL Urine Glucose (UA) NEG mg/dL Urine Ketones NEG mg/dL Urine Occult Blood LARGE Urine Nitrite NEG Urine Bilirubin NEG Urine Urobilinogen LESS THAN 2.0 MG/DL Urine Leukocyte Esterase SMALL Urine RBC 1 /hpf Urine WBC 1 /hpf Urine Squamous Epithelial 1 /hpf Cells Urine Hyaline Casts 1 /lpf Urine Mucus FEW /lpf Microscopic Urinalysis Comment CULT NOT INDICATED Assessment and Plan Problem List: (1) Hypertension (2) Chest pain (3) Elevated troponin (4) CAD (coronary artery disease) Assessment and Plan 1) Accelerated HTN/Hypertensive emergency on arrival, possibly due to steroids and Sudafed outpatient... will attempt to avoid if possible 2) Blood pressure better controlled today, never placed on increased dose of Lopressor... will continue current regiment, will follow up next week in the office for a blood pressure check, if elevated may need escalation of medications 3) Mildly elevated troponin thought to be secondary to hypertensive episode, recent nuclear stress test showing no ischemia, offered cardiac catheterization , but would like to continue medical management with blood pressure control... if at anytime they change their mind on undergoing cardiac catheterization, then can be re-evaluated 4) Heparin drip stopped 5) Cardiovascularly stable for discharge, await primary's recommendations, will see PRN, call with questions Problem Qualifiers (1) Chest pain: Qualified Code: R07.9 - Chest pain, unspecified type John Contreras DO Nov 24, 2016 10:42
[2016-11-24 12:19] VITALS: BP 143/65; PULSE 63; RESP 20; O2SAT 95
--- NOTE | 2016-11-24 13:04 | HHI.PR ---
Subjective Remarks Follow up for chest pain, elevated troponins. The patient denies any further chest pains. She states her shortness of breath is at baseline. Denies any cough , fevers, or chills. She has been cleared by cardiology. Objective Vitals Vital Signs Date Time Temp Pulse Resp B/P Pulse Ox O2 Delivery O2 Flow Rate FiO2 11/24/16 12:19 63 20 143/65 95 11/24/16 09:44 76 11/24/16 08:16 97.8 68 18 152/67 97 11/24/16 08:00 97 11/23/16 20:32 72 16 165/79 97 Nasal Cannula 2 11/23/16 19:46 74 16 188/80 95 Nasal Cannula 2 11/23/16 19:11 97 Nasal Cannula 3.00 11/23/16 17:40 97 Nasal Cannula 3.00 11/23/16 14:32 74 18 185/79 97 Nasal Cannula 3 I/O 11/23/16 11/23/16 11/23/16 11/24/16 11/24/16 11/24/16 07:00 15:00 23:00 07:00 15:00 23:00 Output Total 400 ml Balance -400 ml Output Urine Total 400 ml # Voids 1 Result Diagram: 11/23/16 1438 11/23/16 0440 Imaging Last Impressions Chest X-Ray 11/23/16 0433 Signed Impressions: Service Date/Time: November 04:43 - CONCLUSION: 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 No acute infiltrates seen. Blayne Loera MD Objective Remarks GENERAL: Well-nourished, well-developed female patient in [facility]. SKIN: Warm and dry. No rash. HEAD: Normocephalic. Atraumatic. EYES: Pupils equal and round. No scleral icterus. No injection or drainage. ENT: No nasal bleeding or discharge. Mucous membranes pink and moist. NECK: Supple. Trachea midline. CARDIOVASCULAR: Regular rate and rhythm. S1, S2 noted. No murmur appreciated. RESPIRATORY: No accessory muscle use. Clear to auscultation. Breath sounds equal bilaterally. GASTROINTESTINAL: Abdomen soft, non-tender, nondistended. Normoactive bowel sounds x4. MUSCULOSKELETAL: No obvious deformities. Extremities without clubbing, cyanosis , or edema. NEUROLOGICAL: Awake and alert. No obvious cranial nerve deficits. Motor grossly within normal limits. Normal speech. PSYCHIATRIC: Appropriate mood and affect; insight and judgment normal. Medications and IVs Current Medications Medications (Trade) Dose Ordered Sig/Matthew Route Start Time Stop Time Status Last Admin (NS Flush) 2 ml UNSCH PRN IVF 11/23/16 06:45 (NS Flush) 2 ml BID IVF 11/23/16 09:00 11/24/16 10:30 (Blue Grass 7.5-325 Mg) 1 tab Q4H PRN PO 11/23/16 06:45 (Morphine Inj) 2 mg Q4H PRN IV 11/23/16 06:45 (Zofran Inj) 4 mg Q6H PRN IV 11/23/16 06:45 (Nitrostat Sl) 0.4 mg Q5M PRN SL 11/23/16 06:45 (Restoril) 15 mg HS PRN PO 11/23/16 06:45 (Xanax) 0.25 mg Q8H PRN PO 11/23/16 06:45 11/24/16 10:28 (Heparin Inj) 5,000 units UNSCH PRN IV 11/23/16 17:45 Heparin Sodium (Porcine) 2500 units 2,500 units UNSCH PRN IV 11/23/16 17:45 (Heparin-D5W Inj) 250 ml @ 0 mls/hr TITRATE IV 11/23/16 11:45 11/23/16 12:53 (Norvasc) 10 mg DAILY PO 11/23/16 15:30 11/24/16 10:29 (Aspirin) 325 mg DAILY PO 11/23/16 15:30 11/24/16 10:28 (Lipitor) 80 mg HS PO 11/23/16 21:00 11/23/16 23:15 (Wellbutrin Sr) 150 mg BID PO 11/23/16 21:00 11/24/16 10:29 (Plavix) 75 mg DAILY PO 11/24/16 09:00 11/24/16 10:29 (Lopressor) 25 mg BID PO 11/23/16 21:00 11/24/16 10:28 (Daliresp) 500 mcg DAILY PO 11/24/16 09:00 11/24/16 10:29 (Spiriva Inh) 18 mcg DAILY INH 11/24/16 09:00 11/24/16 10:29 (Oscal-D 250-125) 500 mg BID PO 11/23/16 21:00 11/24/16 10:29 (Symbicort 80-4.5 Mcg Inh) 2 puff BID INH 11/23/16 21:00 11/24/16 10:29 Urinary Catheter: No Vascular Central Line Catheter: No A/P Problem List: (1) Chest pain ICD Code: R07.9 Status: Acute Assessment and Plan 66-year-old female with hx of COPD O2 dependent, CHF, CAD with cardiac stents, HTN, HLD, presents with chest pains. NSTEMI with hx of CAD s/p stents: chest pain with troponins 0.02, 0.15, 0.41. EKG with no acute ST-T changes. Started on IV Heparin drip. Nuclear stress test in Sep 2016 that showed small size moderate severity fixed perfusion abnormality , no ischemia, low risk. Consulted cardiology, discussed with Dr. Contreras, troponin elevated likely secondary to accelerated hypertension, recommends continue medical management for now. Continue patient's metoprolol, aspirin, plavix, statin. Monitor on telemetry. Cleared for d/c by cardiology. D/c heparin drip. She has follow up appt with her political researcher next week Dr. Ochoa. Accelerated Hypertension: BP 216/93 upon arrival. Likely secondary to recent steroid use and patient's BP meds recently decreased by PCP. Continue patient's metoprolol, norvasc. BP better controlled today. Cleared for d/c by cardiology with outpatient f/up. Recent Pneumonia: patient completed course of azithro as outpatient, then yesterday 11/22 given dose of IV Ertapenem as outpatient per her higher education administrator Dr. Patton. CXR upon admission unremarkable, images reviewed by me. Discussed with the patient no indication for antibiotics at this time. Monitor for fevers. Leukocytosis secondary to recent steroid use. Leukocytosis: likely steroid induced. No signs of acute infection at this time. UA unremarkable, culture not indicated. Monitor. Chronic Respiratory Failure secondary to COPD, on home O2: chronic, stable, continue patient's Spiriva, Advair. HLD: chronic, continue statin. Anxiety/Depression: chronic, continue patient's Wellbutrin and xanax prn. DVT Prophylaxis: d/c heparin drip. Written by Migdalia Butcher, acting as scribe for Dr. Sevilla on 11/24/16 at 13: 02. Discharge Planning Discharge patient to home Condition on discharge: Improved Heart Healthy Diet as tolerated Ad Dayana activity Rx written: no changes to meds, discontinued IV ertapenem and decadron Follow-up with primary care physician and political researcher Dr. Ochoa Attending Statement The documentation accurately reflects the work performed [id number] by me on at 13:02. Problem Qualifiers (1) Chest pain: Qualified Code: R07.9 - Chest pain, unspecified type Migdalia Butcher PA-C Nov 24, 2016 13:04 Rambo Le MD Nov 28, 2016 13:51
[2016-11-24] MEDS ORDERED: METO25TA3 PO (13:26)
--- NOTE | 2016-11-24 13:29 | HHI.DCPOC ---
Discharge Care Plan Diagnosis: (1) Chest pain (2) CAD (coronary artery disease) (3) Hypertension Goals to Promote Your Health * To prevent worsening of your condition and complications * To maintain your health at the optimal level Directions to Meet Your Goals Take your medications as prescribed Follow your dietary instruction Follow activity as directed Keep your appointments as scheduled Take your immunizations and boosters as scheduled If your symptoms worsen call your PCP, if no PCP go to Urgent Care Center or Emergency Room Smoking is Dangerous to Your Health. Avoid second hand smoke Call the 24-hour hour crisis hotline for domestic abuse at Migdalia Butcher PA-C Nov 24, 2016 13:29
--- NOTE | 2016-11-24 13:30 | EKG ---
Date Performed: 11/23/2016 Time Performed: 11:32:40 PTAGE: 66 years EKG: Sinus rhythm NORMAL ECG PREVIOUS TRACING : 11/23/2016 07.34 Since previous tracing, no significant change noted DOCTOR: Enriqueta Ochoa Interpretating Date/Time 11/24/2016 13:29:17
== END 2016-11-24 15:52 | disposition home or self-care (01) | DRG 280 ==
LOC: NEPE 04:25 → NEDA 06:37 → OBSVTOIN 17:48 → NEDA 19:27 → NEPHCDU 21:02
PROVIDERS: ADMIT Hospitalist; ATTEND Hospitalist
DX: I21.4 Non-ST elevation (NSTEMI) myocardial infarction (principal); J18.9 Pneumonia, unspecified organism; J96.10 Chronic respiratory failure, unspecified whether with hypoxia or hypercapnia; I11.0 Hypertensive heart disease with heart failure; I50.9 Heart failure, unspecified; J44.0 Chronic obstructive pulmonary disease with (acute) lower respiratory infection; I16.1 Hypertensive emergency; E78.5 Hyperlipidemia, unspecified; I25.10 Atherosclerotic heart disease of native coronary artery without angina pectoris; I25.2 Old myocardial infarction; G47.30 Sleep apnea, unspecified; T38.0X5A Adverse effect of glucocorticoids and synthetic analogues, initial encounter; H91.90 Unspecified hearing loss, unspecified ear; Z87.442 Personal history of urinary calculi; Z87.891 Personal history of nicotine dependence; Z95.5 Presence of coronary angioplasty implant and graft; Z99.81 Dependence on supplemental oxygen; F41.8 Other specified anxiety disorders
CPT/HCPCS: 71010; 80053; 81001; 82550; 83690; 83735; 83880; 84484; 85025; 85027; 85610; 85730; 93005; 96374; J1644

== ENCOUNTER 2017-02-26 09:44 | Emergency (ER) | payer MEDICARE, OTHER ==
[~2017-02-26] VITALS: Ht 165.1 cm; Wt 90.0 kg
[~2017-02-26 09:44] MED LIST changes: -AZIT250T3 PO; -HYDR-3533 PO
[2017-02-26 09:48] VITALS: BP 159/78; PULSE 101; PULSE 12; RESP 18; TEMP 98.2; O2SAT 93
[2017-02-26 09:52] VITALS: O2SAT 96
[2017-02-26] MEDS ORDERED: RESP: ALBUTEROL 2.5 MG/IPRATROPIUM 0.5 MG NEB (SCH) NEB ONE (10:00)
[2017-02-26] MEDS ORDERED: SODIUM CHLORIDE 0.9% FLUSH 10 ML FLUSH IVF PRN (10:00)
--- NOTE | 2017-02-26 10:13 | PD ---
HPI Chief Complaint: Chest Pain Time Seen by Provider: 09:48 Travel History International Travel<30 days: No Contact w/Intl Traveler<30days: No Traveled to known affect area: No History of Present Illness HPI The patient is a 66-year-old female who presents to the emergency department via EMS for chest pain. The patient states she was taken her daughter's kids to school earlier today, sitting on the [place] in her car, when she developed chest pain. The chest pain was located in left aspect of her chest, radiated down her left arm into the left jaw. The patient's pain lasted for approximately 20-30 minutes and improved with aspirin and nitroglycerin that was administered by EMS. The patient does have a history of coronary artery disease with previous stent placement. The patient does have a history of hypertension, hyperlipidemia, and previous tobacco use. The patient is currently on oxygen and goes to pulmonary rehabilitation several times a week. The patient's primary physician is Dr. Guadarrama. The patient's log cooker is Dr. Heart, and her rope walker is Dr. Ochoa. The patient's pain has currently resolved. She denied any associated nausea, vomiting, or diaphoresis. 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) Endocrine: Yes Gastrointestinal Disorders: No GERD: No Genitourinary: Yes Headaches: No Hiatal Hernia: No Hypertension: Yes Immune Disorder: No Implanted Vascular Access Dvce: Yes Kidney Stones: Yes Musculoskeletal: Yes Neurologic: No Psychiatric: Yes Reproductive: No Respiratory: Yes Integumentary: No Immunizations Current: Yes Myocardial Infarction: Yes (FL 1996, 2007-history of FL and CHF on ventilator) Radiation Therapy: No Renal Failure: No Seizures: No Sickle Cell Disease: No Sleep Apnea: Yes Thyroid Disease: Yes (3 LOBES SURGICALLY REMOVED) Ulcer: Yes Menopausal: Yes : 3 Para: 3 Miscarriage: 0 Tubal Ligation: Yes Past Surgical History Abdominal Surgery: Yes AICD: No Appendectomy: Yes Arteriovenous Shunt: No Body Medical Devices: 2 PLATES LEFT LEG Cardiac Surgery: Yes (CARDIAC STENTS) Coronary Artery Bypass Graft: No Coronary Stent: Yes (X2 1996) Endocrine Surgery: Yes (THYROIDECTOMY 86) Hysterectomy: No Insulin Pump: No Joint Replacement: No Pacemaker: No Other Surgery: Yes (APPENDECTOMY 1970, THYROIDECTOMY 1985, HERNIA REPAIR 10/06 ) Social History Alcohol Use: No Tobacco Use: No (NONE SINCE 09/28) Substance Use: No Allergies-Medications (Allergen,Severity, Reaction): Coded Allergies: Lisinopril (Verified Allergy, Severe, COUGH, 09/23/16) NEW ALLERGRY FROM DR. GUADARRAMA'S OFFICE Reported Meds & Prescriptions Reported Meds & Active Scripts Active Metoprolol Tartrate 25 Mg Tab 25 Mg PO BID Reported Caltrate 600+D (Calcium Carbonate-Cholecalciferol) 600-800 Mg-Unit Tab 1 Tab PO BID Vitamin C (Ascorbic Acid) 500 Mg Cap 500 Mg PO Multi Complete (Multiple Vitamins W/ Minerals) 1 Cap Cap Spiriva Handihaler (Tiotropium Inh) 18 Mcg Cap 18 Mcg INH DAILY 1 capsule = 18 mcg Advair Diskus Inh (Fluticasone-Salmeterol Inh) 100-50 Mcg/Blist Aer 1 Puff INH BID Rinse mouth after use. Daliresp (Roflumilast) 500 Mcg Tab 500 Mcg PO DAILY Amlodipine (Amlodipine Besylate) 10 Mg Tab 10 Mg PO DAILY Lipitor (Atorvastatin Calcium) 80 Mg Tab 80 Mg PO HS Wellbutrin Xl 24 HR (Bupropion HCl) 150 Mg Tab 150 Mg PO BID Xanax (Alprazolam) 0.5 Mg Tab 0.5 Mg PO BID PRN Aspirin 325 Mg Tab 325 Mg PO DAILY Plavix (Clopidogrel Bisulfate) 75 Mg Tab 75 Mg PO DAILY Review of Systems Except as stated in HPI: all other systems reviewed are Neg General / Constitutional: No: Fever HENT: No: Lightheadedness Cardiovascular: Positive: Chest Pain or Discomfort, No: Diaphoresis Respiratory: Positive: Shortness of Breath (chronic) Gastrointestinal: No: Nausea Musculoskeletal: No: Edema Neurologic: No: Dizziness Physical Exam Narrative GENERAL: Awake, alert, very pleasant 66 year-old female who appears her stated age and is in no acute respiratory distress. Patient is on oxygen. SKIN: Focused skin assessment warm/dry. HEAD: Atraumatic. Normocephalic. EYES: Pupils equal and round. No scleral icterus. No injection or drainage. ENT: No nasal bleeding or discharge. Mucous membranes pink and moist. NECK: Trachea midline. No JVD. CARDIOVASCULAR: Regular rate and rhythm. No murmur appreciated. RESPIRATORY: No accessory muscle use. Prolonged expiratory phase with a few scattered rhonchi. GASTROINTESTINAL: Abdomen soft, non-tender, nondistended. No rebound tenderness. MUSCULOSKELETAL: No obvious deformities. No clubbing. No cyanosis. No edema. NEUROLOGICAL: Awake and alert. No obvious cranial nerve deficits. Motor grossly within normal limits. Normal speech. PSYCHIATRIC: Appropriate mood and affect; insight and judgment normal. Data Data Last Documented VS Vital Signs Date Time Temp Pulse Resp B/P Pulse Ox O2 Delivery O2 Flow Rate FiO2 02/26/17 10:32 95 Nasal Cannula 3.00 02/26/17 09:52 100 20 02/26/17 09:48 98.2 159/78 Orders Electrocardiogram (02/26/17 09:59) Ckmb (Isoenzyme) Profile (02/26/17 09:59) Complete Blood Count With Diff (02/26/17 09:59) Comprehensive Metabolic Panel (02/26/17 09:59) Magnesium (Mg) (02/26/17 09:59) Prothrombin Time / Inr (Pt) (02/26/17 09:59) Act Partial Throm Time (Ptt) (02/26/17 09:59) Troponin I (02/26/17 09:59) Lipase (02/26/17 09:59) Chest, Single Ap (02/26/17 09:59) Ecg Monitoring (02/26/17 09:59) Bilateral Bp Monitoring (02/26/17 09:59) Iv Access Insert/Monitor (02/26/17 09:59) Oximetry (02/26/17 09:59) Oxygen Administration (02/26/17 09:59) Sodium Chloride 0.9% Flush (Ns Flush) (02/26/17 10:00) Albuterol-Ipratropium Neb (Duoneb Neb) (02/26/17 10:00) Potassium Chloride Eff (K-Lyte Cl Eff) (02/26/17 10:45) Troponin I (02/26/17 13:05) Ondansetron Inj (Zofran Inj) (02/26/17 13:45) Labs Laboratory Tests Test 02/26/17 02/26/17 10:05 12:55 White Blood Count 11.6 TH/MM3 Red Blood Count 4.53 MIL/MM3 Hemoglobin 12.2 GM/DL Hematocrit 37.7 % Mean Corpuscular Volume 83.1 FL Mean Corpuscular Hemoglobin 26.9 PG Mean Corpuscular Hemoglobin 32.3 % Concent Red Cell Distribution Width 13.2 % Platelet Count 277 TH/MM3 Mean Platelet Volume 8.6 FL Neutrophils (%) (Auto) 64.9 % Lymphocytes (%) (Auto) 21.2 % Monocytes (%) (Auto) 6.6 % Eosinophils (%) (Auto) 6.6 % Basophils (%) (Auto) 0.7 % Neutrophils # (Auto) 7.5 TH/MM3 Lymphocytes # (Auto) 2.5 TH/MM3 Monocytes # (Auto) 0.8 TH/MM3 Eosinophils # (Auto) 0.8 TH/MM3 Basophils # (Auto) 0.1 TH/MM3 CBC Comment DIFF FINAL Differential Comment Prothrombin Time 10.7 SEC Prothromb Time International 1.0 RATIO Ratio Activated Partial 28.7 SEC Thromboplast Time Sodium Level 140 MEQ/L Potassium Level 3.0 MEQ/L Chloride Level 102 MEQ/L Carbon Dioxide Level 29.1 MEQ/L Anion Gap 9 MEQ/L Blood Urea Nitrogen 13 MG/DL Creatinine 0.84 MG/DL Estimat Glomerular Filtration 68 ML/MIN Rate Random Glucose 164 MG/DL Calcium Level 8.8 MG/DL Magnesium Level 1.5 MG/DL Total Bilirubin 0.3 MG/DL Aspartate Amino Transf 18 U/L (AST/SGOT) Alanine Aminotransferase 20 U/L (ALT/SGPT) Alkaline Phosphatase 79 U/L Total Creatine Kinase 63 U/L Troponin I LESS THAN 0.02 0.02 NG/ML NG/ML Total Protein 6.7 GM/DL Albumin 3.2 GM/DL Lipase 113 U/L Exceptions Acute Myocardial Infarction ASA Not Given on Arrival: Already Given by EMS [facility] Medical Decision Making Medical Screen Exam Complete: Yes Emergency Medical Condition: Yes Medical Record Reviewed: Yes Interpretation(s) EKG reveals normal sinus rhythm with a rate of 94. Q wave noted in lead 3. Last Impressions Chest X-Ray 02/26/17 0959 Signed Impressions: Service Date/Time: Sunday, February 26, 2017 10:01 - CONCLUSION: Minimal bibasilar parenchymal changes worse on the right. Considerations would include both atelectasis and inflammatory process. Yan Roy MD FACR Laboratory Tests Test 02/26/17 02/26/17 10:05 12:55 White Blood Count 11.6 TH/MM3 Red Blood Count 4.53 MIL/MM3 Hemoglobin 12.2 GM/DL Hematocrit 37.7 % Mean Corpuscular Volume 83.1 FL Mean Corpuscular Hemoglobin 26.9 PG Mean Corpuscular Hemoglobin 32.3 % Concent Red Cell Distribution Width 13.2 % Platelet Count 277 TH/MM3 Mean Platelet Volume 8.6 FL Neutrophils (%) (Auto) 64.9 % Lymphocytes (%) (Auto) 21.2 % Monocytes (%) (Auto) 6.6 % Eosinophils (%) (Auto) 6.6 % Basophils (%) (Auto) 0.7 % Neutrophils # (Auto) 7.5 TH/MM3 Lymphocytes # (Auto) 2.5 TH/MM3 Monocytes # (Auto) 0.8 TH/MM3 Eosinophils # (Auto) 0.8 TH/MM3 Basophils # (Auto) 0.1 TH/MM3 CBC Comment DIFF FINAL Differential Comment Prothrombin Time 10.7 SEC Prothromb Time International 1.0 RATIO Ratio Activated Partial 28.7 SEC Thromboplast Time Sodium Level 140 MEQ/L Potassium Level 3.0 MEQ/L Chloride Level 102 MEQ/L Carbon Dioxide Level 29.1 MEQ/L Anion Gap 9 MEQ/L Blood Urea Nitrogen 13 MG/DL Creatinine 0.84 MG/DL Estimat Glomerular Filtration 68 ML/MIN Rate Random Glucose 164 MG/DL Calcium Level 8.8 MG/DL Magnesium Level 1.5 MG/DL Total Bilirubin 0.3 MG/DL Aspartate Amino Transf 18 U/L (AST/SGOT) Alanine Aminotransferase 20 U/L (ALT/SGPT) Alkaline Phosphatase 79 U/L Total Creatine Kinase 63 U/L Troponin I LESS THAN 0.02 0.02 NG/ML NG/ML Total Protein 6.7 GM/DL Albumin 3.2 GM/DL Lipase 113 U/L Differential Diagnosis Differential diagnosis includes acute coronary syndrome, angina, GERD, esophageal spasm, bronchitis, pneumonia, COPD exacerbation. Narrative Course IV was established, labs are drawn and sent, and the patient was placed on cardiac telemetry monitoring and continuous pulse oximetry monitoring. EKG was ordered and interpreted. Chest x-ray was obtained. The patient received aspirin and nitroglycerin orally prior to arrival. The initial troponin was negative. Chest x-ray reveals atelectasis in the bases versus acute inflammatory process. I had a discussion with the on-call physician for Dr. Sinha, Dr. Sparks, and after discussion it was agreed we would repeat the troponin and if negative the patient will be placed back on Imdur follow-up with her rope walker in the office. The patient is comfortable with this plan of care. Therefore, the 3 hour troponin was ordered for 1:05 PM. The second troponin was negative at 0.02. I had a discussion with the patient, she states she still takes Imdur 30 mg per day, it was on her medication list from her wallet. She is advised to continue the Imdur. The patient will be provided a copy of her labs, chest x-ray, and EKG at discharge and is advised to follow-up with her rope walker either today or tomorrow. Return if symptoms worsen or progress. Diagnosis Primary Impression: Chest pain Qualified Code: R07.9 - Chest pain, unspecified type Patient Instructions: General Instructions Additional Instructions: Please provide the patient a copy of her chest x-ray results, EKG results, and lab results at discharge. Continue Imdur and previous medications as directed. Follow-up with your rope walker, call his office today. Return if symptoms worsen or progress. Disposition: 01 DISCHARGE HOME Condition: Stable Jose Patterson MD February 26, 2017 10:12
[2017-02-26 10:16] LABS: AUTOMATED NEUTROPHIL # 7.5 TH/MM3 (1.8-7.7); BASOPHIL # 0.1 TH/MM3 (0-0.2); BASOPHIL % 0.7 % (0.0-2.0); EOSINOPHIL # 0.8 TH/MM3 (0-0.4); EOSINOPHIL % 6.6 % (0.0-4.0); HEMATOCRIT 37.7 % (35.0-46.0); HEMO FLAGS DIFF FINAL; LYMPH % 21.2 % (9.0-44.0); LYMPHOCYTE # 2.5 TH/MM3 (1.0-4.8); MEAN CELL VOLUME 83.1 FL (80.0-100.0); MEAN CORPUSCULAR HEMOGLOBIN 26.9 PG (27.0-34.0); MEAN CORPUSCULAR HGB CONC 32.3 % (32.0-36.0); MONO % 6.6 % (0.0-8.0); NEUT % 64.9 % (16.0-70.0); PLATELET COUNT 277 TH/MM3 (150-450); RED BLOOD COUNT 4.53 MIL/MM3 (4.00-5.30); RED CELL DISTRIBUTION WIDTH 13.2 % (11.6-17.2); WHITE BLOOD COUNT 11.6 TH/MM3 (4.0-11.0)
--- NOTE | 2017-02-26 10:24 | RADRPT ---
EXAM DATE/TIME: 02/26/2017 10:01 [facility] COMPARISON: CHEST SINGLE AP, November 23, 2016, 4:43. INDICATIONS : Mid sternal chest pains, prior stents. MEDICAL HISTORY : Myocardial infarction. SURGICAL HISTORY : Coronary artery stent. ENCOUNTER: Initial ACUITY: 1 day PAIN SCORE: 8/10 LOCATION: Bilateral chest FINDINGS: There are minimal bibasilar parenchymal changes worse on the right than the left. The heart and pulm onary vascularity are normal. The portion of the bony skeleton visualized is unremarkable. CONCLUSION: Minimal bibasilar parenchymal changes worse on the right. Considerations would include both atelecta sis and inflammatory process. Yan Roy MD FACR on February 26, 2017 at 10:21 Board Certified Radiologist. This report was verified electronically.
[2017-02-26 10:26] LABS: APTT (PATIENT) 28.7 SEC (24.3-30.1); PROTHROMBIN TIME - PATIENT 10.7 SEC (9.8-11.6)
[2017-02-26 10:32] VITALS: O2SAT 95
[2017-02-26 10:33] LABS: ANION GAP 9 MEQ/L (5-15); AST (GOT) 18 U/L (15-37); BICARBONATE 29.1 MEQ/L (21.0-32.0); BLOOD UREA NITROGEN 13 MG/DL (7-18); CHLORIDE 102 MEQ/L (98-107); GLOMERULAR FILTRATION RATE 68 ML/MIN (>89); MAGNESIUM 1.5 MG/DL (1.5-2.5); SODIUM (NA) 140 MEQ/L (136-145)
[2017-02-26 10:38] LABS: ALKALINE PHOSPHATASE 79 U/L (45-117); ALT (GPT) 20 U/L (10-53); TOTAL BILIRUBIN ADULT 0.3 MG/DL (0.2-1.0)
[2017-02-26 10:43] LABS: CREATINE KINASE 63 U/L (26-192)
[2017-02-26] MEDS ORDERED: POTASSIUM CHLORIDE 25 MEQ EFFERVESCENT TAB PO ONE (10:45)
--- NOTE | 2017-02-26 11:34 | EKG ---
Date Performed: 02/26/2017 Time Performed: 09:59:10 PTAGE: 66 years EKG: Sinus rhythm POSSIBLE INFERIOR MYOCARDIAL INFARCTION BORDERLINE ECG PREVIOUS TRACING : 11/23/2016 11.32 DOCTOR: Zack Meyer Interpretating Date/Time 02/26/2017 11:31:33
[2017-02-26] MEDS ORDERED: ONDANSETRON HCL 4 MG/2 ML VIAL IV PUSH ONE (13:45)
[2017-02-26 14:15] VITALS: BP 168/74
== END 2017-02-26 15:11 | disposition home or self-care (01) ==
LOC: NEPE 09:44
DX: R07.9 Chest pain, unspecified (principal); R94.31 Abnormal electrocardiogram [ECG] [EKG]; I25.10 Atherosclerotic heart disease of native coronary artery without angina pectoris; I10 Essential (primary) hypertension; I50.9 Heart failure, unspecified; Z79.01 Long term (current) use of anticoagulants
CPT/HCPCS: 71010; 80053; 82550; 83690; 83735; 84484; 85025; 85610; 85730; 93005; 94664; 96374; 99285; J2405

== ENCOUNTER 2017-07-01 19:36 | Emergency (ER) | payer MEDICARE, OTHER ==
[~2017-07-01] VITALS: Ht 160 cm; Wt 89.0 kg
[2017-07-01] MEDS ORDERED: IOHEXOL 350 MG/ML 10 ML VIAL (for RAD DIAG) IVCONTRAST ONE (19:37)
[2017-07-01 19:42] VITALS: BP 164/74; PULSE 75; RESP 18; TEMP 98.4; O2SAT 91
[2017-07-01] MEDS ORDERED: DIATRIZOATE MEGLUM/DIATRIZOATE SOD 9 ML CUP ONE (19:54)
[2017-07-01 19:55] VITALS: RESP 18; O2SAT 95
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
[2017-07-01] MEDS ORDERED: SODIUM CHLORIDE 0.9% FLUSH 10 ML FLUSH IV FLUSH PRN (20:00)
[2017-07-01 20:20] LABS: AUTOMATED NEUTROPHIL # 10.5 TH/MM3 (1.8-7.7); BASOPHIL # 0.1 TH/MM3 (0-0.2); EOSINOPHIL # 0.4 TH/MM3 (0-0.4); EOSINOPHIL % 3.1 % (0.0-4.0); HEMATOCRIT 43.9 % (35.0-46.0); HEMO FLAGS DIFF FINAL; LYMPHOCYTE # 1.5 TH/MM3 (1.0-4.8); MEAN CELL VOLUME 84.3 FL (80.0-100.0); MEAN CORPUSCULAR HEMOGLOBIN 27.1 PG (27.0-34.0); MEAN CORPUSCULAR HGB CONC 32.2 % (32.0-36.0); MONO % 5.8 % (0.0-8.0); NEUT % 79.1 % (16.0-70.0); PLATELET COUNT 211 TH/MM3 (150-450); WHITE BLOOD COUNT 13.2 TH/MM3 (4.0-11.0)
--- NOTE | 2017-07-01 20:21 | RADRPT ---
EXAM DATE/TIME: 07/01/2017 20:08 [facility] COMPARISON: CHEST SINGLE AP, February 26, 2017, 10:01. INDICATIONS : Cough and short of breath. MEDICAL HISTORY : Myocardial infarction. Chronic obstructive pulmonary disease. SURGICAL HISTORY : Coronary artery stent. ENCOUNTER: Initial ACUITY: >1 year PAIN SCORE: 0/10 LOCATION: Bilateral chest FINDINGS: There is slight interstitial infiltrate at the left lung base. No evidence of effusion. Cardiac conto urs are grossly stable. CONCLUSION: Mild interstitial infiltrate in left base Blayne Valenzuela MD on July 01, 2017 at 20:18 Board Certified Radiologist. This report was verified electronically.
[2017-07-01 20:38] LABS: ALT (GPT) 27 U/L (10-53)
[2017-07-01 20:42] LABS: ALKALINE PHOSPHATASE 82 U/L (45-117); ANION GAP 8 MEQ/L (5-15); AST (GOT) 22 U/L (15-37); BLOOD UREA NITROGEN 20 MG/DL (7-18); CHLORIDE 102 MEQ/L (98-107); CREATINE KINASE 61 U/L (26-192); GLOMERULAR FILTRATION RATE 85 ML/MIN (>89); MAGNESIUM 1.8 MG/DL (1.5-2.5); SODIUM (NA) 141 MEQ/L (136-145); TOTAL BILIRUBIN ADULT 0.3 MG/DL (0.2-1.0)
[2017-07-01] MEDS ORDERED: SODIUM CHLORID 0.9% 500 ML INJ 500 ML IV ONE (20:45)
[2017-07-01 21:00] LABS: APTT (PATIENT) 25.2 SEC (24.3-30.1); PROTHROMBIN TIME - PATIENT 10.7 SEC (9.8-11.6)
--- NOTE | 2017-07-01 21:54 | RADRPT ---
EXAM DATE/TIME: 07/01/2017 21:30 [facility] COMPARISON: CT ABDOMEN & PELVIS W CONTRAST, September 23, 2016, 20:46. INDICATIONS : Abdominal pain with nausea, vomiting and diarrhea. IV CONTRAST: 90 cc Omnipaque 350 (iohexol) IV ORAL CONTRAST: Partial prescribed oral contrast ingested. RADIATION DOSE: 20.20 CTDIvol (mGy) MEDICAL HISTORY : Myocardial infarction. Chronic obstructive pulmonary disease. Renal calculi.Hypertension. Congestive heart failure. SURGICAL HISTORY : Appendectomy. Tubal ligation.Thyroidectomy.Hernia repair. ENCOUNTER: Initial ACUITY: 1 day PAIN SCALE: 4/10 LOCATION: Bilateral abdomen TECHNIQUE: Volumetric scanning of the abdomen and pelvis was performed. Using automated exposure control and ad justment of the mA and/or kV according to patient size, radiation dose was kept as low as reasonably achievable to obtain optimal diagnostic quality images. DICOM format image data is available electro nically for review and comparison. FINDINGS: LOWER LUNGS: The visualized lower lungs are clear. LIVER: Homogeneous density without lesion. There is no dilation of the biliary tree. Numerous calcified gal lstones are again noted. A SPLEEN: Normal size without lesion. PANCREAS: Within normal limits. KIDNEYS: Normal in size and shape. There is no mass, stone or hydronephrosis. ADRENAL GLANDS: Within normal limits. VASCULAR: Densely calcified plaque is present throughout the aorta and iliac vessels. Calcified plaque is also noted at the origin of the aortic branches. Hemodynamically significant stenoses appear to be present at the origin of the celiac artery, ri ght renal artery origin and external iliac arteries. BOWEL/MESENTERY: Numerous diverticula present of the descending and sigmoid colon. There is no active inflammatory diane nges. There is no evidence of free air or ileus. ABDOMINAL WALL: Within normal limits. RETROPERITONEUM: There is no lymphadenopathy. BLADDER: No wall thickening or mass. REPRODUCTIVE: Within normal limits. INGUINAL: There is no lymphadenopathy or hernia. MUSCULOSKELETAL: Within normal limits for patient age. CONCLUSION: 1. Advanced calcific atherosclerotic vascular disease with suspected hemodynamically significant sten otic lesions suspected in the celiac artery, right renal artery and external iliac arteries. 2. Uncomplicated colonic diverticulosis. 3. Cholelithiasis. 4. No evidence of acute process. Andres Reinoso MD on July 01, 2017 at 21:43 Board Certified Radiologist. This report was verified electronically.
[2017-07-01 21:58] LABS: BLOOD, URINE MOD (NEG); COMMENT (UR) CULTURE INDICATED; CULTURE IF INDICATED CULTURE INDICATED; GLUCOSE,URINE NEG (NEG); KETONE, URINE NEG (NEG); MUCUS URINE FEW /lpf (OCC); NITRITE,URINE NEG (NEG); URINE COLOR YELLOW (YELLW/STRAW)
[2017-07-01] MEDS ORDERED: ACETAMINOPHEN 500 MG CPLT PO ONE (22:00)
[2017-07-01] MEDS ORDERED: ONDANSETRON HCL 4 MG/2 ML VIAL IV PUSH ONE (22:00)
[2017-07-01 22:14] VITALS: BP 163/71; PULSE 88; RESP 20; O2SAT 92
[2017-07-01 22:24] VITALS: BP 163/71; PULSE 78; RESP 20; O2SAT 93
[2017-07-01 23:39] LABS: CREATINE KINASE 50 U/L (26-192)
[2017-07-01] MEDS ORDERED: ROFLUMILAST 500 MCG TAB PO ONE (23:45)
[2017-07-01] MEDS ORDERED: ALPRAZolam 0.5 MG TAB PO ONE (23:45)
[2017-07-01] MEDS ORDERED: ATORVASTATIN 80 MG TAB PO ONE (23:45)
[2017-07-01] MEDS ORDERED: TIOTROPIUM BROMIDE 18 MCG INH INH ONE (23:45)
[2017-07-02] MEDS: buPROPion HCL 150 MG SUSTAINED RELEASE TAB PO SCH ×2 (00:22→10:38)
[2017-07-02] MEDS: METOPROLOL TARTRATE 25 MG TAB PO SCH ×2 (00:23→10:38)
[2017-07-02] MEDS ORDERED: ACETAMINOPHEN 500 MG CPLT PO ONE (03:15)
[2017-07-02 06:17] VITALS: BP 177/72; PULSE 76; RESP 20; O2SAT 92
[2017-07-02] MEDS ORDERED: ASPIRIN 325 MG TAB PO ONE (09:00)
[2017-07-02] MEDS ORDERED: CLOPIDOGREL 75 MG TAB PO ONE (09:00)
--- NOTE | 2017-07-02 11:23 | EKG ---
Date Performed: 07/01/2017 Time Performed: 22:26:18 PTAGE: 66 years EKG: Sinus rhythm NONSPECIFIC ST & T-WAVE ABNORMALITY ABNORMAL ECG Compared to prior tracing no significant change PREVIOUS TRACING : 07/01/2017 19.48 DOCTOR: Adan Johnson Interpretating Date/Time 07/02/2017 11:21:10
--- NOTE | 2017-07-02 11:23 | EKG ---
Date Performed: 07/01/2017 Time Performed: 19:48:18 PTAGE: 66 years EKG: Sinus rhythm ST DEVIATION AND MODERATE T-WAVE ABNORMALITY, CONSIDER LATERAL ISCHEMIA ST DEVIATION AND MODERATE T- WAVE ABNORMALITY, CONSIDER INFERIOR ISCHEMIA ABNORMAL ECG Compared to prior tracing no significant ch loree PREVIOUS TRACING : 02/26/2017 09.59 DOCTOR: Adan Johnson Interpretating Date/Time 07/02/2017 11:20:59
== END 2017-07-02 13:17 | disposition home or self-care (01) ==
LOC: NEPE 19:36
DX: R10.30 Lower abdominal pain, unspecified (principal); R31.21 Asymptomatic microscopic hematuria; R61 Generalized hyperhidrosis; K57.30 Diverticulosis of large intestine without perforation or abscess without bleeding; K80.20 Calculus of gallbladder without cholecystitis without obstruction; K59.00 Constipation, unspecified; I11.0 Hypertensive heart disease with heart failure; I50.9 Heart failure, unspecified; Z87.891 Personal history of nicotine dependence
CPT/HCPCS: 71010; 74177; 80053; 81001; 82550; 83605; 83690; 83735; 84484; 85025; 85610; 85730; 87086; 93005; 96360; 99285; J7040; Q9963; Q9967

== ENCOUNTER 2017-07-04 14:36 | Emergency (ER) | payer MEDICARE, OTHER ==
[~2017-07-04] VITALS: Ht 165.1 cm; Wt 90.0 kg
[~2017-07-04 14:36] MED LIST changes: -ASCO500C PO; -CALTTAB PO; -MULTCAP13
[2017-07-04 14:38] VITALS: BP 153/67; PULSE 76; RESP 16; TEMP 98; O2SAT 94
--- NOTE | 2017-07-04 14:57 | PD ---
HPI Chief Complaint: Fall Time Seen by Provider: 14:47 Travel History International Travel<30 days: No Contact w/Intl Traveler<30days: No Traveled to known affect area: No History of Present Illness HPI 66-year-old female with significant cardiac disease, COPD, on oxygen at home, presents to the emergency department for evaluation of left knee pain. Patient states she was walking to her room when she tripped over her oxygen cord. She came down landing on her left knee, bracing her fall with her left upper extremity. She did not strike her head or lose consciousness. Reports significant left knee pain however she was able to ambulate following the fall. Patient is on Plavix and aspirin. She has no other symptoms to report at this time. PFSH Past Medical History Hx Anticoagulant Therapy: Yes Arthritis: Yes Asthma: No Autoimmune Disease: No Blood Disorders: No Anxiety: Yes Depression: Yes Heart Rhythm Problems: No Cancer: No Cardiac Catheterization: Yes Cardiovascular Problems: Yes High Cholesterol: Yes Chemotherapy: No Chest Pain: No Congestive Heart Failure: Yes COPD: Yes (HOME OXYGEN 3L ) Cerebrovascular Accident: No Diabetes: Yes Diminished Hearing: Yes ([place]) Endocrine: Yes Gastrointestinal Disorders: No GERD: No Genitourinary: Yes Headaches: No Hiatal Hernia: Yes Hypertension: Yes Immune Disorder: No Implanted Vascular Access Dvce: Yes Kidney Stones: Yes Musculoskeletal: Yes Neurologic: No Psychiatric: Yes Reproductive: No Respiratory: Yes (COPD) Integumentary: No Immunizations Current: Yes Myocardial Infarction: Yes ([place] 1996, [place]-history of [place] and [place]) Radiation Therapy: No Renal Failure: No Seizures: No Sickle Cell Disease: No Sleep Apnea: Yes Thyroid Disease: Yes (3 LOBES SURGICALLY REMOVED) Ulcer: Yes Menopausal: Yes : 3 Para: 3 Miscarriage: 0 Tubal Ligation: Yes Past Surgical History Abdominal Surgery: Yes AICD: No Appendectomy: Yes Arteriovenous Shunt: No Body Medical Devices: 2 PLATES LEFT LEG Cardiac Surgery: Yes (CARDIAC STENTS) Coronary Artery Bypass Graft: No Coronary Stent: Yes (X2 1996) Endocrine Surgery: Yes (THYROIDECTOMY ) Hysterectomy: No Insulin Pump: No Joint Replacement: No Pacemaker: No Thoracic Surgery: No Other Surgery: Yes (APPENDECTOMY 1970, THYROIDECTOMY 1985, HERNIA REPAIR 10/06 ) Social History Alcohol Use: No Tobacco Use: No (NONE SINCE 09/28) Substance Use: No Allergies-Medications (Allergen,Severity, Reaction): Coded Allergies: lisinopril (Unverified Allergy, Severe, COUGH, 07/04/17) NEW ALLERGRY FROM DR. GUADARRAMA'S OFFICE Reported Meds & Prescriptions Reported Meds & Active Scripts Active Lortab (Hydrocodone-Acetaminophen) 5-325 Mg Tab 1 Tab PO Q6H PRN Metoprolol Tartrate 25 Mg Tab 25 Mg PO BID Reported Spiriva Handihaler (Tiotropium Inh) 18 Mcg Cap 18 Mcg INH DAILY 1 capsule = 18 mcg Advair Diskus Inh (Fluticasone-Salmeterol Inh) 100-50 Mcg/Blist Aer 1 Puff INH BID Rinse mouth after use. Daliresp (Roflumilast) 500 Mcg Tab 500 Mcg PO DAILY Amlodipine (Amlodipine Besylate) 10 Mg Tab 10 Mg PO DAILY Lipitor (Atorvastatin Calcium) 80 Mg Tab 80 Mg PO HS Wellbutrin Xl 24 HR (Bupropion HCl) 150 Mg Tab 150 Mg PO BID Xanax (Alprazolam) 0.5 Mg Tab 0.5 Mg PO BID PRN Aspirin 325 Mg Tab 325 Mg PO DAILY Plavix (Clopidogrel Bisulfate) 75 Mg Tab 75 Mg PO DAILY Review of Systems Except as stated in HPI: all other systems reviewed are Neg Physical Exam Narrative GENERAL: Well-nourished, chronically ill-appearing female patient, sitting up in bed in no acute distress SKIN: Focused skin assessment warm/dry. Large area of ecchymosis on the anterior aspect of the left knee with associated edema. HEAD: Normocephalic. Atraumatic EYES: No scleral icterus. No injection or drainage. NECK: Supple, trachea midline. No JVD or lymphadenopathy. CARDIOVASCULAR: Elevated rate and rhythm. RESPIRATORY: Breath sounds diminished throughout bilaterally. No accessory muscle use. GASTROINTESTINAL: Abdomen soft, non-tender, nondistended. MUSCULOSKELETAL: No cyanosis. Patient can flex the left knee to about 60. Distal pulses are palpable. Cap refill is within normal limits. No obvious deformities. Patient has mild swelling over the right third digit. No deformity. Cap refill within normal limits. BACK: Nontender without obvious deformity. No CVA tenderness. Data Data Last Documented VS Vital Signs Date Time Temp Pulse Resp B/P (MAP) Pulse Ox O2 Delivery O2 Flow Rate FiO2 07/04/17 15:21 19 Nasal Cannula 3.00 07/04/17 14:38 98.0 76 153/67 (95) 94 Orders Orders Knee, Complete (4vws) (07/04/17 ) Hand, Complete (Cov7bow) (07/04/17 ) Acetamin-Hydrocod 325-5 Mg ([place] 5-325 (07/04/17 15:00) Maury Bandage (07/04/17 16:00) MDM Medical Decision Making Medical Screen Exam Complete: Yes Emergency Medical Condition: Yes Medical Record Reviewed: Yes Differential Diagnosis Contusion versus fracture versus sprain versus dislocation Narrative Course 66-year-old female presents to emergency department for evaluation left knee pain following a trip and fall. Patient does have ecchymosis and edema to the anterior left knee. X-ray imaging is complete. Patient was treated for pain. Last Impressions Knee X-Ray 07/04/17 0000 Signed Impressions: Service Date/Time: Sunday, July 04, 2017 15:23 - CONCLUSION: Marked soft tissue swelling, degenerative changes, negative for fracture. Yan Roy MD FACR Hand X-Ray 07/04/17 0000 Signed Impressions: Service Date/Time: Sunday, July 04, 2017 15:21 - CONCLUSION: Negative for fracture or dislocation. Follow up in 7-10 days is suggested if symptoms persist. Yan Roy MD FACR Maury wrap is applied. Patient was discharged to follow-up with primary care provider. She is counseled on care. She agrees to return immediately with any acute worsening symptoms. Diagnosis Primary Impression: Contusion of left knee Qualified Codes: S80.02XA - Contusion of left knee, initial encounter Additional Impressions: Joint effusion of knee Qualified Codes: M25.462 - Effusion, left knee Contusion of left hand, initial encounter Referrals: Orthopaedic Surgeon Primary Care Physician Patient Instructions: General Instructions, Knee Pain (ED), Swollen Knee Joint (ED) Additional Instructions: Ice and elevation to reduce pain and swelling Maury wrap for compression Follow-up to primary care provider Tylenol as package as needed for pain. Please use caution with Tylenol and Lortab as Lortab also has Tylenol in it. No more than 3 g of Tylenol total and 824 hour period. Return immediately to the emergency department with any acute worsening of symptoms Med/Other Pt SpecificInfo: Prescription(s) given Scripts Hydrocodone-Acetaminophen (Lortab) 5-325 Mg Tab 1 TAB PO Q6H Y for PAIN GREATER THAN 5, #6 TAB 0 Refills Prov: Ilene Estrada 07/04/17 Disposition: 01 DISCHARGE HOME Condition: Stable Ilene Estrada Jul 04, 2017 14:57
[2017-07-04] MEDS ORDERED: ACETAMINOPHEN/HYDROcodone 325 MG/5 MG TAB PO ONE (15:00)
--- NOTE | 2017-07-04 15:56 | RADRPT ---
EXAM DATE/TIME: 07/04/2017 15:21 [facility] COMPARISON: No previous studies available for comparison. INDICATIONS : Left hand pain after falling today. MEDICAL HISTORY : None. SURGICAL HISTORY : None. ENCOUNTER: Initial ACUITY: 1 day PAIN SCORE: 6/10 LOCATION: Left hand. FINDINGS: Three view examination of the left hand demonstrates no soft tissue swelling, dislocation, or fractur e. The carpal bones appear intact. The interphalangeal and metacarpophalangeal joints are intact. Bony mineralization is normal. CONCLUSION: Negative for fracture or dislocation. Follow up in 7-10 days is suggested if symptoms persist. Yan Roy MD FACR on July 04, 2017 at 15:54 Board Certified Radiologist. This report was verified electronically.
--- NOTE | 2017-07-04 15:57 | RADRPT ---
EXAM DATE/TIME: 07/04/2017 15:23 [facility] COMPARISON: No previous studies available for comparison. INDICATIONS : Left knee swelling and bruising since falling this morning. MEDICAL HISTORY : None. SURGICAL HISTORY : None. ENCOUNTER: Initial ACUITY: 1 day PAIN SCORE: 6/10 LOCATION: Left anterior knee. FINDINGS: Extensive degenerative changes evident with large suprapatella swelling. Mild vascular chest lesions are evident. Swelling does have the patella mildly displaced CONCLUSION: Marked soft tissue swelling, degenerative changes, negative for fracture. Yan Roy MD FACR on July 04, 2017 at 15:54 Board Certified Radiologist. This report was verified electronically.
[2017-07-04] MEDS ORDERED: HYDR-3533 PO (16:02)
[2017-07-04 16:35] VITALS: BP 153/67
--- NOTE | 2017-07-04 16:36 | PD ---
Data Data Last Documented VS Vital Signs Date Time Temp Pulse Resp B/P (MAP) Pulse Ox O2 Delivery O2 Flow Rate FiO2 07/04/17 15:21 19 Nasal Cannula 3.00 07/04/17 14:38 98.0 76 153/67 (95) 94 Orders Orders Knee, Complete (4vws) (07/04/17 ) Hand, Complete ([id number]) (07/04/17 ) Acetamin-Hydrocod 325-5 Mg ([place] 5-325 (07/04/17 15:00) Maury Bandage (07/04/17 16:00) MDM Supervised Visit with JIMMY: Yes Narrative Course The history, exam, and medical decision-making in the associated midlevel provider note were completed with my assistance. I reviewed and agree with the findings presented. I attest that I had a [id number] encounter with the patient on the same day, and personally performed and documented my assessment and findings in the medical record. *My assessment and Findings: This is a 66-year-old female who was on Plavix who presents to the emergency department having had a fall and injury to her left knee. She has a joint effusion but a normal neurovascular exam. X-rays demonstrates no fracture and she is able to ambulate with pain. I think patient will benefit from rest, ice compression and elevation. She likely has a hemarthrosis which is can take some time to reabsorb. Patient is appropriate for outpatient management. Diagnosis Primary Impression: Contusion of left knee Qualified Codes: S80.02XA - Contusion of left knee, initial encounter Additional Impressions: Joint effusion of knee Qualified Codes: M25.462 - Effusion, left knee Contusion of left hand, initial encounter Referrals: Orthopaedic Surgeon Primary Care Physician Patient Instructions: General Instructions, Swollen Knee Joint (ED), Knee Pain (ED) Departure Forms: Tests/Procedures Additional Instruction: Ice and elevation to reduce pain and swelling Maury wrap for compression Follow-up to primary care provider Tylenol as package as needed for pain. Please use caution with Tylenol and Lortab as Lortab also has Tylenol in it. No more than 3 g of Tylenol total and 824 hour period. Return immediately to the emergency department with any acute worsening of symptoms Scripts Hydrocodone-Acetaminophen (Lortab) 5-325 Mg Tab 1 TAB PO Q6H Y for PAIN GREATER THAN 5, #6 TAB 0 Refills Prov: Ilene Estrada HELENA 07/04/17 Disposition: 01 DISCHARGE HOME Condition: Stable Yareli Moreau MD Jul 04, 2017 16:36
== END 2017-07-04 16:40 | disposition home or self-care (01) ==
LOC: NEPD 14:36
DX: S80.02XA Contusion of left knee, initial encounter (principal); S60.222A Contusion of left hand, initial encounter; M25.462 Effusion, left knee; W18.09XA Striking against other object with subsequent fall, initial encounter; Y93.01 Activity, walking, marching and hiking
CPT/HCPCS: 73130; 73564; 99284

== ENCOUNTER 2017-11-09 20:54 | Inpatient (IN) | payer MEDICARE, OTHER ==
[2017-11-09] MEDS: NITROGLYCERIN 2% OINT 1 GM PACKET TOPICAL (21:20)
[2017-11-09] MEDS: LORazepam 2 MG/ML VIAL IV PUSH (21:20)
[2017-11-09 21:46] LABS: AUTOMATED NEUTROPHIL # 17.3 TH/MM3 (1.8-7.7); BASOPHIL % 0.2 % (0.0-2.0); EOSINOPHIL # 0.5 TH/MM3 (0-0.4); EOSINOPHIL % 2.4 % (0.0-4.0); HEMATOCRIT 45.8 % (35.0-46.0); HEMO FLAGS DIFF FINAL; HEMOGLOBIN 14.6 GM/DL (11.6-15.3); LYMPH % 8.3 % (9.0-44.0); LYMPHOCYTE # 1.7 TH/MM3 (1.0-4.8); MEAN CELL VOLUME 85.1 FL (80.0-100.0); MEAN CORPUSCULAR HEMOGLOBIN 27.2 PG (27.0-34.0); MEAN PLATELET VOLUME 8.6 FL (7.0-11.0); MONO % 2.6 % (0.0-8.0); MONOCYTE # 0.5 TH/MM3 (0-0.9); NEUT % 86.5 % (16.0-70.0); PLATELET COUNT 322 TH/MM3 (150-450); RED BLOOD COUNT 5.37 MIL/MM3 (4.00-5.30); RED CELL DISTRIBUTION WIDTH 14.4 % (11.6-17.2)
[2017-11-09 22:05] LABS: ALBUMIN 3.5 GM/DL (3.4-5.0); ANION GAP 5 MEQ/L (5-15); AST (GOT) 23 U/L (15-37); BICARBONATE 36.4 MEQ/L (21.0-32.0); BLOOD UREA NITROGEN 17 MG/DL (7-18); CALCIUM 9.5 MG/DL (8.5-10.1); CHLORIDE 99 MEQ/L (98-107); CREATININE 0.71 MG/DL (0.50-1.00); GLOMERULAR FILTRATION RATE 82 ML/MIN (>89); GLUCOSE,RANDOM 118 MG/DL (74-106); POTASSIUM 4.1 MEQ/L (3.5-5.1); SODIUM (NA) 140 MEQ/L (136-145)
[2017-11-09 22:07] LABS: ALT (GPT) 24 U/L (10-53)
[2017-11-09 22:10] LABS: ALKALINE PHOSPHATASE 82 U/L (45-117); TOTAL BILIRUBIN ADULT 0.5 MG/DL (0.2-1.0); TOTAL PROTEIN 7.3 GM/DL (6.4-8.2); TROPONIN I LESS THAN 0.02 NG/ML (0.02-0.05)
[2017-11-09] MEDS: LEVOFLOXACIN 750 MG PREMIX INJ 150 ML IV (22:23)
[2017-11-09 22:28] LABS: BLOOD GAS BASE EXCESS 6.4 mmol/L (-2-2); BLOOD GAS CARBOXYHEMOGLOBIN 0.9 % (0-4); BLOOD GAS HCO3 32 mmol/L (22-26); BLOOD GAS METHEMOGLOBIN 0.6 % (0-2); BLOOD GAS O2 HGB SATURATION 97 % (90-100); BLOOD GAS OXYGEN CONTENT 19.6 Vol % (12.0-20.0); BLOOD GAS PCO2 63 mmHg (38-42); BLOOD GAS PO2 123 mmHG (61-120); BLOOD GAS TOTAL HGB 14.2 G/DL (12.0-16.0); TEMP CORR TO 98.6
[2017-11-09 22:29] LABS: CRITICAL VALUE YES; FIO2 50 %; OXYGEN DEVICE BiPAP; VENT SETTINGS IPAP10/EPAP5
[2017-11-09 22:30] LABS: DRAW SITE RT RADIAL; NUMBER OF ARTERIAL PUNCTURES 1; STAT YES; ULNAR PULSE PRESENT
[2017-11-09 23:24] LABS: B-TYPE NATRIURETIC PEPTIDE 182 PG/ML (0-100)
[2017-11-09] MEDS ORDERED: BISACODYL 10 MG SUPP RECTAL (23:30)
[2017-11-09] MEDS ORDERED: RESP: ALBUTEROL 2.5 MG/IPRATROPIUM 0.5 MG NEB (PRN) NEB (23:30)
[2017-11-09] MEDS ORDERED: ONDANSETRON HCL 4 MG/2 ML VIAL IVP (23:30)
[2017-11-09] MEDS ORDERED: LACTULOSE SYRUP 20 GM/30 ML CUP PO (23:30)
[2017-11-09] MEDS ORDERED: MAGNESIUM HYDROXIDE SUSP 30 ML CUP PO (23:30)
[2017-11-09] MEDS ORDERED: SODIUM CHLORIDE 0.9% FLUSH 10 ML FLUSH IV FLUSH (23:30)
[2017-11-09] MEDS ORDERED: SENNOSIDES 8.6 MG TAB PO (23:30)
[2017-11-10] MEDS: methylPREDNISolone SOD SUCC 40 MG/1 ML VIAL IV PUSH ×4 (00:05→18:36)
[2017-11-10] MEDS: ALPRAZolam 0.5 MG TAB PO (02:43)
[2017-11-10] MEDS: hydrALAZINE HCL 20 MG/ML VIAL IV PUSH (05:46)
[2017-11-10] MEDS: LORazepam 2 MG/ML VIAL IV PUSH (07:19)
[2017-11-10] MEDS: MORPHINE SULFATE 2 MG/ML INJ IV PUSH (07:20)
[2017-11-10 07:24] LABS: AUTOMATED NEUTROPHIL # 15.1 TH/MM3 (1.8-7.7); BASOPHIL % 0.1 % (0.0-2.0); EOSINOPHIL % 0.1 % (0.0-4.0); HEMATOCRIT 43.3 % (35.0-46.0); HEMO FLAGS DIFF FINAL; HEMOGLOBIN 14.4 GM/DL (11.6-15.3); LYMPH % 2.6 % (9.0-44.0); LYMPHOCYTE # 0.4 TH/MM3 (1.0-4.8); MEAN CORPUSCULAR HEMOGLOBIN 28.2 PG (27.0-34.0); MEAN CORPUSCULAR HGB CONC 33.2 % (32.0-36.0); MEAN PLATELET VOLUME 8.7 FL (7.0-11.0); MONO % 0.4 % (0.0-8.0); MONOCYTE # 0.1 TH/MM3 (0-0.9); NEUT % 96.8 % (16.0-70.0); PLATELET COUNT 311 TH/MM3 (150-450); RED CELL DISTRIBUTION WIDTH 14.3 % (11.6-17.2); WHITE BLOOD COUNT 15.6 TH/MM3 (4.0-11.0)
[2017-11-10 08:32] LABS: ALBUMIN 3.3 GM/DL (3.4-5.0); ALT (GPT) 23 U/L (10-53); ANION GAP 10 MEQ/L (5-15); AST (GOT) 23 U/L (15-37); BICARBONATE 30.7 MEQ/L (21.0-32.0); BLOOD UREA NITROGEN 25 MG/DL (7-18); CALCIUM 8.9 MG/DL (8.5-10.1); CHLORIDE 99 MEQ/L (98-107); CREATININE 0.75 MG/DL (0.50-1.00); GLOMERULAR FILTRATION RATE 77 ML/MIN (>89); GLUCOSE,RANDOM 165 MG/DL (74-106); POTASSIUM 4.1 MEQ/L (3.5-5.1); SODIUM (NA) 140 MEQ/L (136-145)
[2017-11-10 08:35] LABS: ALKALINE PHOSPHATASE 75 U/L (45-117); TOTAL BILIRUBIN ADULT 0.4 MG/DL (0.2-1.0); TOTAL PROTEIN 7.1 GM/DL (6.4-8.2)
[2017-11-10] MEDS: METOPROLOL TARTRATE 25 MG TAB PO ×2 (08:47→20:53)
[2017-11-10] MEDS: RESP: ALBUTEROL 2.5 MG/IPRATROPIUM 0.5 MG NEB (SCH) NEB ×4 (08:47→19:34)
[2017-11-10] MEDS: CLOPIDOGREL 75 MG TAB PO (08:48)
[2017-11-10] MEDS: ISOSORBIDE MONONITRATE 20 MG TAB PO (08:48)
[2017-11-10] MEDS: DOCUSATE SODIUM 50 MG/SENNA 8.6 MG TAB PO ×2 (08:48→20:54)
[2017-11-10] MEDS: buPROPion HCL 150 MG SUSTAINED RELEASE TAB PO ×2 (08:48→20:53)
[2017-11-10] MEDS: guaiFENesin E.R. 600 MG TAB PO ×2 (08:48→20:54)
[2017-11-10] MEDS: ASPIRIN 325 MG TAB PO (08:49)
[2017-11-10] MEDS: HEPARIN SODIUM - SQ 10,000 UNITS/ML VIAL SQ ×2 (08:49→20:55)
[2017-11-10] MEDS: SODIUM CHLORIDE 0.9% FLUSH 10 ML FLUSH IV FLUSH ×2 (09:00→21:05)
[2017-11-10] MEDS ORDERED: BUDESONIDE-FORMOTEROL 80/4.5 MCG INHALER INH (09:00)
[2017-11-10] MEDS: TIOTROPIUM BROMIDE 18 MCG INH INH (10:14)
[2017-11-10] MEDS: ROFLUMILAST 500 MCG TAB PO (10:14)
[2017-11-10] MEDS: BUDESONIDE-FORMOTEROL 160/4.5 MCG INHALER INH ×2 (10:14→21:00)
[2017-11-10] MEDS: hydrALAZINE HCL 25 MG TAB PO ×2 (13:47→21:00)
[2017-11-10] MEDS: ATORVASTATIN 80 MG TAB PO (20:54)
[2017-11-10] MEDS: LEVOFLOXACIN 750 MG PREMIX INJ 150 ML IV (23:00)
[2017-11-11] MEDS: methylPREDNISolone SOD SUCC 40 MG/1 ML VIAL IV PUSH ×4 (00:34→20:38)
[2017-11-11] MEDS: ALPRAZolam 0.5 MG TAB PO ×3 (02:42→20:35)
[2017-11-11 05:26] LABS: AUTOMATED NEUTROPHIL # 10.7 TH/MM3 (1.8-7.7); BASOPHIL % 0.1 % (0.0-2.0); HEMATOCRIT 38.5 % (35.0-46.0); HEMO FLAGS DIFF FINAL; HEMOGLOBIN 12.4 GM/DL (11.6-15.3); LYMPH % 5.4 % (9.0-44.0); LYMPHOCYTE # 0.6 TH/MM3 (1.0-4.8); MEAN CELL VOLUME 84.5 FL (80.0-100.0); MEAN CORPUSCULAR HEMOGLOBIN 27.2 PG (27.0-34.0); MEAN CORPUSCULAR HGB CONC 32.2 % (32.0-36.0); MEAN PLATELET VOLUME 8.9 FL (7.0-11.0); MONO % 1.5 % (0.0-8.0); MONOCYTE # 0.2 TH/MM3 (0-0.9); PLATELET COUNT 263 TH/MM3 (150-450); RED BLOOD COUNT 4.56 MIL/MM3 (4.00-5.30); RED CELL DISTRIBUTION WIDTH 14.5 % (11.6-17.2); WHITE BLOOD COUNT 11.5 TH/MM3 (4.0-11.0)
[2017-11-11 05:45] LABS: ANION GAP 8 MEQ/L (5-15); BICARBONATE 31.4 MEQ/L (21.0-32.0); BLOOD UREA NITROGEN 27 MG/DL (7-18); CALCIUM 8.8 MG/DL (8.5-10.1); CHLORIDE 100 MEQ/L (98-107); CREATININE 0.69 MG/DL (0.50-1.00); GLOMERULAR FILTRATION RATE 85 ML/MIN (>89); GLUCOSE,RANDOM 123 MG/DL (74-106); POTASSIUM 3.9 MEQ/L (3.5-5.1); SODIUM (NA) 139 MEQ/L (136-145)
[2017-11-11] MEDS: hydrALAZINE HCL 25 MG TAB PO ×3 (06:01→20:36)
[2017-11-11] MEDS: RESP: ALBUTEROL 2.5 MG/IPRATROPIUM 0.5 MG NEB (SCH) NEB ×4 (08:23→20:27)
[2017-11-11] MEDS: TIOTROPIUM BROMIDE 18 MCG INH INH (08:49)
[2017-11-11] MEDS: ROFLUMILAST 500 MCG TAB PO (08:49)
[2017-11-11] MEDS: BUDESONIDE-FORMOTEROL 160/4.5 MCG INHALER INH ×2 (08:49→20:38)
[2017-11-11] MEDS: ASPIRIN 325 MG TAB PO (08:50)
[2017-11-11] MEDS: ISOSORBIDE MONONITRATE 20 MG TAB PO (08:50)
[2017-11-11] MEDS: METOPROLOL TARTRATE 25 MG TAB PO ×2 (08:51→20:36)
[2017-11-11] MEDS: CLOPIDOGREL 75 MG TAB PO (08:51)
[2017-11-11] MEDS: guaiFENesin E.R. 600 MG TAB PO ×2 (08:51→20:35)
[2017-11-11] MEDS: DOCUSATE SODIUM 50 MG/SENNA 8.6 MG TAB PO ×2 (08:51→20:34)
[2017-11-11] MEDS: HEPARIN SODIUM - SQ 10,000 UNITS/ML VIAL SQ ×2 (08:52→20:36)
[2017-11-11] MEDS: SODIUM CHLORIDE 0.9% FLUSH 10 ML FLUSH IV FLUSH ×2 (08:59→20:38)
[2017-11-11] MEDS: buPROPion HCL 150 MG SUSTAINED RELEASE TAB PO ×2 (10:52→20:35)
[2017-11-11 16:20] LABS: LDH SERUM 292 U/L (84-246)
[2017-11-11] MEDS: ATORVASTATIN 80 MG TAB PO (20:36)
[2017-11-11] MEDS: ACETAMINOPHEN 325 MG TAB PO (21:02)
[2017-11-11 22:04] LABS: CARCINOEMBRYONIC ANTIGEN 1.7 NG/ML (0.2-5.0)
[2017-11-11 22:41] LABS: CA 125 15.7 U/ML (0.0-30.2)
[2017-11-12] MEDS: LEVOFLOXACIN 750 MG PREMIX INJ 150 ML IV (00:11)
[2017-11-12] MEDS: methylPREDNISolone SOD SUCC 40 MG/1 ML VIAL IV PUSH ×3 (05:31→20:51)
[2017-11-12] MEDS: hydrALAZINE HCL 25 MG TAB PO ×3 (05:31→20:52)
[2017-11-12] MEDS: DOCUSATE SODIUM 50 MG/SENNA 8.6 MG TAB PO ×2 (08:12→20:51)
[2017-11-12] MEDS: METOPROLOL TARTRATE 25 MG TAB PO ×2 (08:12→20:53)
[2017-11-12] MEDS: buPROPion HCL 150 MG SUSTAINED RELEASE TAB PO ×2 (08:12→20:52)
[2017-11-12] MEDS: guaiFENesin E.R. 600 MG TAB PO ×2 (08:12→20:53)
[2017-11-12] MEDS: ROFLUMILAST 500 MCG TAB PO (08:12)
[2017-11-12] MEDS: ISOSORBIDE MONONITRATE 20 MG TAB PO (08:12)
[2017-11-12] MEDS: CLOPIDOGREL 75 MG TAB PO (08:12)
[2017-11-12] MEDS: ASPIRIN 325 MG TAB PO (08:12)
[2017-11-12] MEDS: SODIUM CHLORIDE 0.9% FLUSH 10 ML FLUSH IV FLUSH ×2 (08:13→20:53)
[2017-11-12] MEDS: TIOTROPIUM BROMIDE 18 MCG INH INH (08:15)
[2017-11-12] MEDS: HEPARIN SODIUM - SQ 10,000 UNITS/ML VIAL SQ ×2 (08:15→20:53)
[2017-11-12] MEDS: BUDESONIDE-FORMOTEROL 160/4.5 MCG INHALER INH ×2 (08:15→20:51)
[2017-11-12] MEDS: RESP: ALBUTEROL 2.5 MG/IPRATROPIUM 0.5 MG NEB (SCH) NEB ×4 (09:08→19:50)
[2017-11-12] MEDS: ATORVASTATIN 80 MG TAB PO (20:51)
[2017-11-12] MEDS: ALPRAZolam 0.5 MG TAB PO (21:07)
[2017-11-13] MEDS: hydrALAZINE HCL 25 MG TAB PO ×2 (04:58→14:00)
[2017-11-13] MEDS: RESP: ALBUTEROL 2.5 MG/IPRATROPIUM 0.5 MG NEB (SCH) NEB ×3 (07:16→15:43)
[2017-11-13] MEDS: TIOTROPIUM BROMIDE 18 MCG INH INH (09:00)
[2017-11-13] MEDS: BUDESONIDE-FORMOTEROL 160/4.5 MCG INHALER INH (09:00)
[2017-11-13] MEDS: buPROPion HCL 150 MG SUSTAINED RELEASE TAB PO (09:00)
[2017-11-13] MEDS: ASPIRIN 325 MG TAB PO (09:00)
[2017-11-13] MEDS: SODIUM CHLORIDE 0.9% FLUSH 10 ML FLUSH IV FLUSH (09:00)
[2017-11-13] MEDS: CLOPIDOGREL 75 MG TAB PO (09:00)
[2017-11-13] MEDS: DOCUSATE SODIUM 50 MG/SENNA 8.6 MG TAB PO (09:00)
[2017-11-13] MEDS: guaiFENesin E.R. 600 MG TAB PO (09:00)
[2017-11-13] MEDS: HEPARIN SODIUM - SQ 10,000 UNITS/ML VIAL SQ (09:00)
[2017-11-13] MEDS: METOPROLOL TARTRATE 25 MG TAB PO (09:00)
[2017-11-13] MEDS: methylPREDNISolone SOD SUCC 40 MG/1 ML VIAL IV PUSH (09:00)
[2017-11-13] MEDS: ROFLUMILAST 500 MCG TAB PO (09:00)
[2017-11-13] MEDS: ISOSORBIDE MONONITRATE 20 MG TAB PO (09:00)
[2017-11-13] MEDS: LEVOFLOXACIN 750 MG TAB PO (10:28)
[2017-11-13] MEDS: ACETAMINOPHEN/HYDROcodone 325 MG/5 MG TAB PO ×2 (11:10→18:19)
== END 2017-11-13 18:35 | disposition home or self-care (01) | DRG 193 ==
LOC: HCIS 11-10 01:56 → NEPC 20:54 → NEDA 23:20
PROC: 5A09357 Assistance with Respiratory Ventilation, Less than 24 Consecutive Hours, Continuous Positive Airway Pressure (ICD-10-PCS; principal; 2017-11-09)
DX: J18.9 Pneumonia, unspecified organism (principal); J96.21 Acute and chronic respiratory failure with hypoxia; J96.22 Acute and chronic respiratory failure with hypercapnia; Z99.81 Dependence on supplemental oxygen; J44.0 Chronic obstructive pulmonary disease with (acute) lower respiratory infection; J44.1 Chronic obstructive pulmonary disease with (acute) exacerbation; N13.2 Hydronephrosis with renal and ureteral calculous obstruction; I25.10 Atherosclerotic heart disease of native coronary artery without angina pectoris; Z95.5 Presence of coronary angioplasty implant and graft; I25.2 Old myocardial infarction; Z79.02 Long term (current) use of antithrombotics/antiplatelets; I10 Essential (primary) hypertension; F41.9 Anxiety disorder, unspecified; E78.5 Hyperlipidemia, unspecified; E03.9 Hypothyroidism, unspecified; R91.1 Solitary pulmonary nodule; H91.90 Unspecified hearing loss, unspecified ear; E66.3 Overweight; Z68.34 Body mass index [BMI] 34.0-34.9, adult; F32.9 Major depressive disorder, single episode, unspecified; Z87.891 Personal history of nicotine dependence
CPT/HCPCS: 36600; 71045; 71046; 71260; 76775; 80048; 80053; 82105; 82378; 82805; 83615; 83880; 84484; 85025; 86304; 87804; 87804-59; 93005; 94002; 94003; 94060; 94640; 94664; 96365; 96375; 97110-GP; 97162-GP; 97530-GP; 99285-25

== ENCOUNTER 2018-03-02 13:48 | Inpatient (IN) | payer MEDICARE, OTHER ==
[~2018-03-02] VITALS: Ht 162.6 cm; Wt 96.5 kg
[2018-03-02] VITALS (11 sets, daily range): BP systolic 135–185; BP diastolic 65–106; PULSE 80–107; RESP 19–24; TEMP 97.2–98.2; O2SAT 93–99
[~2018-03-02 13:48] MED LIST changes: -ADVA100A INH; +ASPI-183 PO; -ASPI325T PO; +Budeson-Formot 160-4.5 Mcg Inh INH; +HYDR-3533 PO; +HYDR-3799 PO; +ISOS10TA3 PO; +LEVA750T9 PO; +PRED10 PO; +VENTAER INH
[2018-03-02] MEDS: RESP: ALBUTEROL 2.5 MG/IPRATROPIUM 0.5 MG NEB (SCH) INH ×2 (14:09→14:10)
[2018-03-02] MEDS ORDERED: SODIUM CHLORIDE 0.9% FLUSH 10 ML FLUSH IVF PRN (14:15)
[2018-03-02] MEDS ORDERED: methylPREDNISolone SOD SUCC 125 MG/2 ML VIAL IV PUSH ONE (14:15)
--- NOTE | 2018-03-02 14:16 | RADRPT ---
EXAM DATE/TIME: 03/02/2018 14:06 [facility] COMPARISON: CHEST, AP & LAT, November 13, 2017, 9:51. CHEST SINGLE AP, November 09, 2017, 22:05. INDICATIONS : Short of breath. MEDICAL HISTORY : Cardiovascular disease. SURGICAL HISTORY : Coronary artery stent. ENCOUNTER: Initial ACUITY: 1 day PAIN SCORE: 7/10 LOCATION: Bilateral chest FINDINGS: Bibasilar parenchymal changes worse on the left than the right. Mild compensated cardiomegaly. No p neumothorax. CONCLUSION: Mild hyperinflation and minimal bibasilar parenchymal changes stable in the interval. Yan Roy MD FACR on March 02, 2018 at 14:13 Board Certified Radiologist. This report was verified electronically.
[2018-03-02 14:31] LABS: AUTOMATED NEUTROPHIL # 6.1 TH/MM3 (1.8-7.7); BASOPHIL # 0.1 TH/MM3 (0-0.2); BASOPHIL % 0.8 % (0.0-2.0); EOSINOPHIL # 0.3 TH/MM3 (0-0.4); EOSINOPHIL % 3.4 % (0.0-4.0); HEMATOCRIT 39.8 % (35.0-46.0); HEMOGLOBIN 13.2 GM/DL (11.6-15.3); LYMPH % 19.2 % (9.0-44.0); LYMPHOCYTE # 1.7 TH/MM3 (1.0-4.8); MEAN CELL VOLUME 87.1 FL (80.0-100.0); MEAN CORPUSCULAR HEMOGLOBIN 28.8 PG (27.0-34.0); MEAN CORPUSCULAR HGB CONC 33.1 % (32.0-36.0); MEAN PLATELET VOLUME 8.7 FL (7.0-11.0); MONO % 5.9 % (0.0-8.0); MONOCYTE # 0.5 TH/MM3 (0-0.9); NEUT % 70.7 % (16.0-70.0); PLATELET COUNT 230 TH/MM3 (150-450); RED BLOOD COUNT 4.57 MIL/MM3 (4.00-5.30); RED CELL DISTRIBUTION WIDTH 13.5 % (11.6-17.2); WHITE BLOOD COUNT 8.7 TH/MM3 (4.0-11.0)
[2018-03-02 14:47] LABS: PROTHROMBIN TIME - PATIENT 10.2 SEC (9.8-11.6)
[2018-03-02 14:49] LABS: D-DIMER 0.5 MG/L FEU (0.00-0.50)
[2018-03-02 14:52] LABS: ALBUMIN 3.5 GM/DL (3.4-5.0); ALT (GPT) 23 U/L (10-53); AST (GOT) 22 U/L (15-37); BICARBONATE 33.8 MEQ/L (21.0-32.0); BLOOD UREA NITROGEN 15 MG/DL (7-18); CALCIUM 8.9 MG/DL (8.5-10.1); CHLORIDE 101 MEQ/L (98-107); CREATININE 0.72 MG/DL (0.50-1.00); GLOMERULAR FILTRATION RATE 81 ML/MIN (>89); GLUCOSE,RANDOM 106 MG/DL (74-106); SODIUM (NA) 142 MEQ/L (136-145)
[2018-03-02 14:55] LABS: ALKALINE PHOSPHATASE 81 U/L (45-117); TOTAL BILIRUBIN ADULT 0.6 MG/DL (0.2-1.0); TOTAL PROTEIN 7.1 GM/DL (6.4-8.2)
[2018-03-02] MEDS ORDERED: PROCHLORPERAZINE INJ 10 MG/2 ML VIAL IV PUSH ONE (15:15)
[2018-03-02] MEDS ORDERED: HEPARIN SODIUM - IV 10,000 UNITS/10 ML VIAL IV PUSH ONE (15:15)
[2018-03-02] MEDS ORDERED: MORPHINE SULFATE 4 MG/ML INJ IV PUSH ONE (15:15)
[2018-03-02] MEDS ORDERED: diphenhydrAMINE HCL 50 MG/ML VIAL IV PUSH ONE (15:15)
[2018-03-02] MEDS ORDERED: HEPARIN-D5W 25,000 U/250 ML 250 ML IV PRN (15:15)
[2018-03-02] MEDS ORDERED: NITROGLYCERIN 2% OINT 1 GM PACKET TOPICAL ONE (15:15)
--- NOTE | 2018-03-02 15:26 | PD ---
HPI . Fatigue Chief Complaint: Respiratory Symptoms Time Seen by Provider: 14:01 Travel History International Travel<30 days: No Contact w/Intl Traveler<30days: No Traveled to known affect area: No History of Present Illness HPI Patient presents to us by EVAC with the chief complaint of profound fatigue. She reports that this has been an ongoing problem for a while now. She is here with her daughter who is 1 of our nurses. The daughter reports significant dyspnea on exertion today. The daughter states that the patient always has dyspnea on exertion but that it is much more severe today. The patient is unable to walk from her bedroom to the bathroom which is just a short distance. In addition, the patient is having some chest discomfort and some left facial pain. She has a history of trigeminal neuralgia involving her left face. She states that her pain today is worse than usual and she does not know if it is related to her trigeminal neuralgia or to cardiac pain. This pain has gotten progressively worse here in the emergency department. It is now severe. Her daughter reports that her previous MIs have presented as facial pain. She has had 2 previous MIs and has some stents. In addition, she has COPD which is oxygen dependent. He is always on 3 L of oxygen. PFSH Past Medical History Hx Anticoagulant Therapy: Yes (PLAVIX) Arthritis: Yes Asthma: No Autoimmune Disease: No Blood Disorders: No Anxiety: Yes Depression: Yes Heart Rhythm Problems: No Cancer: No Cardiac Catheterization: Yes Cardiovascular Problems: Yes (2 IA) High Cholesterol: Yes Chemotherapy: No Chest Pain: No Congestive Heart Failure: No COPD: Yes (HOME OXYGEN 3L ) Cerebrovascular Accident: No Coronary Artery Disease: Yes Diabetes: No Diminished Hearing: Yes (EYAK) Endocrine: Yes Gastrointestinal Disorders: No GERD: No Genitourinary: Yes Headaches: No Hiatal Hernia: Yes Hypertension: Yes Immune Disorder: No Implanted Vascular Access Dvce: Yes Kidney Stones: Yes Musculoskeletal: Yes Neurologic: No Psychiatric: Yes Reproductive: No Integumentary: No Immunizations Current: Yes Myocardial Infarction: Yes (IA 1996, 2007-history of IA and CHF on ventilator) Radiation Therapy: No Renal Failure: No Seizures: No Sickle Cell Disease: No Sleep Apnea: Yes Thyroid Disease: Yes (3 LOBES SURGICALLY REMOVED) Ulcer: Yes Tetanus Vaccination: > 5 Years Influenza Vaccination: Yes ?: Not Menopausal: Yes : 3 Para: 3 Miscarriage: 0 Tubal Ligation: Yes Past Surgical History Abdominal Surgery: Yes AICD: No Appendectomy: Yes Arteriovenous Shunt: No Body Medical Devices: 2 PLATES LEFT LEG Cardiac Surgery: Yes (CARDIAC STENTS X3) Coronary Artery Bypass Graft: No Coronary Stent: Yes (X3 1996) Ear Surgery: No Endocrine Surgery: Yes (THYROIDECTOMY 86) Eye Surgery: No Genitourinary Surgery: No Gynecologic Surgery: No Hysterectomy: No Insulin Pump: No Joint Replacement: No Oral Surgery: No Pacemaker: No Thoracic Surgery: No Other Surgery: Yes (APPENDECTOMY 1970, THYROIDECTOMY 1985, HERNIA REPAIR 10/06 ) Social History Alcohol Use: No Tobacco Use: No (NONE SINCE 09/28) Substance Use: No Allergies-Medications (Allergen,Severity, Reaction): Coded Allergies: lisinopril (Unverified Allergy, Severe, COUGH, 11/09/17) NEW ALLERGRY FROM DR. GUADARRAMA'S OFFICE Reported Meds & Prescriptions Reported Meds & Active Scripts Active Prednisone 10 Mg Tab 10 Mg PO DIRECTED take 40mg twice a day for 3 days then 30 mg twice a day for 3 days then 20 mg twice a day for 3 days then 10 mg twcie a day for 3 days Ventolin Hfa 18 GM Inh (Albuterol Sulfate) 90 Mcg/Act Aer 2 Puff INH Q6H PRN Levaquin (Levofloxacin) 750 Mg Tablet 750 Mg PO DAILY@1100 [Budeson-Formot 160-4.5 Mcg Inh] 60 PUFF Aero 2 Puff INH Q12HR Hydralazine HCl 25 Mg Tablet 25 Mg PO Q8HR Metoprolol Tartrate 25 Mg Tab 25 Mg PO BID Reported Isosorbide Mononitrate 10 Mg Tab 30 Mg PO DAILY Take 2 doses 7 hours apart. Spiriva Handihaler (Tiotropium Inh) 18 Mcg Cap 18 Mcg INH DAILY 1 capsule = 18 mcg Daliresp (Roflumilast) 500 Mcg Tab 500 Mcg PO DAILY Amlodipine (Amlodipine Besylate) 10 Mg Tab 10 Mg PO DAILY Lipitor (Atorvastatin Calcium) 80 Mg Tab 80 Mg PO HS Wellbutrin Xl 24 HR (Bupropion HCl) 150 Mg Tab 150 Mg PO BID Xanax (Alprazolam) 0.5 Mg Tab 0.5 Mg PO BID PRN Aspirin 325 Mg Tab 325 Mg PO DAILY Plavix (Clopidogrel Bisulfate) 75 Mg Tab 75 Mg PO DAILY Review of Systems Except as stated in HPI: all other systems reviewed are Neg General / Constitutional: Positive: Other (15), No: Fever, Chills HENT: Positive: Other (Left facial pain) Cardiovascular: Positive: Chest Pain or Discomfort Respiratory: Positive: Shortness of Breath Gastrointestinal: No: Nausea, Vomiting Physical Exam Narrative GENERAL: This is a chronically ill-appearing woman who does not look like she feels very well today. SKIN: warm/dry. HEAD: Normocephalic. Atraumatic. EYES: Pupils equal and round. No scleral icterus. No injection or drainage. ENT: No nasal bleeding or discharge. Mucous membranes pink and moist. NECK: Trachea midline. Full range of motion without pain.. CARDIOVASCULAR: Regular rate and rhythm. Heart sounds are normal. RESPIRATORY: No accessory muscle use. Diminished breath sounds. MUSCULOSKELETAL: No obvious deformities. NEUROLOGICAL: Awake and alert. No obvious cranial nerve deficits. Motor grossly within normal limits. Normal speech. PSYCHIATRIC: Appropriate mood and affect; insight and judgment normal. Data Data Last Documented VS Vital Signs Date Time Temp Pulse Resp B/P (MAP) Pulse Ox O2 Delivery O2 Flow Rate FiO2 03/02/18 14:04 99 Nasal Cannula 3.00 03/02/18 13:58 98.2 94 24 185/84 (117) Orders Orders Complete Blood Count With Diff (03/02/18 14:01) Comprehensive Metabolic Panel (03/02/18 14:01) B-Type Natriuretic Peptide (03/02/18 14:01) D-Dimer (03/02/18 14:01) Act Partial Throm Time (Ptt) (03/02/18 14:01) Prothrombin Time / Inr (Pt) (03/02/18 14:01) Troponin I (03/02/18 14:01) Iv Access Insert/Monitor (03/02/18 14:01) Ecg Monitoring (03/02/18 14:01) Oximetry (03/02/18 14:01) Oxygen Administration (03/02/18 14:01) Chest, Single Ap (03/02/18 14:01) Sodium Chloride 0.9% Flush (Ns Flush) (03/02/18 14:15) Methylprednisolone So Succ Inj (Solumedr (03/02/18 14:15) Albuterol-Ipratropium Neb (Duoneb Neb) (03/02/18 14:15) Electrocardiogram (03/02/18 14:04) Heparin Inj (Heparin Inj) (03/02/18 15:15) Heparin Inj (Heparin Inj) (03/02/18 21:15) Heparin Inj (Heparin Inj) (03/02/18 21:15) Heparin-D5w 25,000 U/250 Ml (Heparin-D5w (03/02/18 15:15) Cbc No Diff, Includes Plts (03/05/18 06:00) Act Partial Throm Time (Ptt) (03/02/18 22:10) Occult Blood (Hemoccult) Stool (03/02/18 15:10) Diphenhydramine Inj (Benadryl Inj) (03/02/18 15:15) Prochlorperazine Inj (Compazine Inj) (03/02/18 15:15) Morphine Inj (Morphine Inj) (03/02/18 15:15) Nitroglycerin 2% Oint (Nitroglycerin 2% (03/02/18 15:15) Consult Cardiology (03/02/18 ) Labs Laboratory Tests Test 03/02/18 14:00 White Blood Count 8.7 TH/MM3 Red Blood Count 4.57 MIL/MM3 Hemoglobin 13.2 GM/DL Hematocrit 39.8 % Mean Corpuscular Volume 87.1 FL Mean Corpuscular Hemoglobin 28.8 PG Mean Corpuscular Hemoglobin Concent 33.1 % Red Cell Distribution Width 13.5 % Platelet Count 230 TH/MM3 Mean Platelet Volume 8.7 FL Neutrophils (%) (Auto) 70.7 % Lymphocytes (%) (Auto) 19.2 % Monocytes (%) (Auto) 5.9 % Eosinophils (%) (Auto) 3.4 % Basophils (%) (Auto) 0.8 % Neutrophils # (Auto) 6.1 TH/MM3 Lymphocytes # (Auto) 1.7 TH/MM3 Monocytes # (Auto) 0.5 TH/MM3 Eosinophils # (Auto) 0.3 TH/MM3 Basophils # (Auto) 0.1 TH/MM3 CBC Comment DIFF FINAL Differential Comment Prothrombin Time 10.2 SEC Prothromb Time International Ratio 1.0 RATIO Activated Partial Thromboplast Time 29.4 SEC D-Dimer Quantitative (PE/DVT) 0.50 MG/L FEU Blood Urea Nitrogen 15 MG/DL Creatinine 0.72 MG/DL Random Glucose 106 MG/DL Total Protein 7.1 GM/DL Albumin 3.5 GM/DL Calcium Level 8.9 MG/DL Alkaline Phosphatase 81 U/L Aspartate Amino Transf (AST/SGOT) 22 U/L Alanine Aminotransferase (ALT/SGPT) 23 U/L Total Bilirubin 0.6 MG/DL Sodium Level 142 MEQ/L Potassium Level 3.7 MEQ/L Chloride Level 101 MEQ/L Carbon Dioxide Level 33.8 MEQ/L Anion Gap 7 MEQ/L Estimat Glomerular Filtration Rate 81 ML/MIN Troponin I 0.10 NG/ML B-Type Natriuretic Peptide 206 PG/ML MDM Medical Decision Making Medical Screen Exam Complete: Yes Emergency Medical Condition: Yes Medical Record Reviewed: Yes (Major medical problems include COPD with previous respiratory failure, hypertension, coronary artery disease) Interpretation(s) EKG shows a sinus rhythm with no acute ST segment elevation or depression. Differential Diagnosis Differential diagnosis of dyspnea includes but is not limited to congestive heart failure, pneumonia, wheezing, pneumothorax, pulmonary embolism Narrative Course This patient presented to us by EVAC with a chief complaint of increased dyspnea along with chest discomfort and left facial pain. She has a history of COPD, hypertension and coronary artery disease. Cardiac workup was initiated. In the meantime, she was given duo nebs 3 along with Solu-Medrol 125 IV. While here, her left facial pain has increased in severity. CBC & BMP Diagram 03/02/18 14:00 Total Protein 7.1, Albumin 3.5, Calcium Level 8.9, Alkaline Phosphatase 81, Aspartate Amino Transf (AST/SGOT) 22, Alanine Aminotransferase (ALT/SGPT) 23, Total Bilirubin 0.6 Troponin 0 0.10 Last Impressions Chest X-Ray 03/02/18 1401 Signed Impressions: Service Date/Time: Friday, March 02, 2018 14:06 - CONCLUSION: Mild hyperinflation and minimal bibasilar parenchymal changes stable in the interval. Yan Roy MD FACR A heparin drip has been started. She has been treated with morphine, Compazine and Benadryl. Nitropaste has been placed. She will be admitted to the hospitalist service with a cardiology consultation. Critical Care Narrative Aggregate critical care time was 45 minutes. Time to perform other separately billable procedures was not included in the critical care time. My time did not include minutes spent treating any other patients simultaneously or on activities that did not directly contribute to the patient's treatment. The services I provided to this patient were to treat and/or prevent clinically significant deterioration due to chest pain, dyspnea, non-STEMI I provided critical care services requiring my management, as noted below: Chart data review, documentation time, medication orders and management, vital sign assessments/reviewing monitor data, ordering and reviewing lab tests, ordering and interpreting/reviewing x-rays and diagnostic studies, care of the patient and discussion of the patient with the admitting physicians Diagnosis Primary Impression: NSTEMI (non-ST elevated myocardial infarction) Additional Impression: Dyspnea Qualified Codes: R06.09 - Other forms of dyspnea Admitting Information Admitting Physician Requests: Admit Condition: Stable Robina Castañeda MD March 02, 2018 15:26
[2018-03-02] MEDS ORDERED: LACTULOSE SYRUP 20 GM/30 ML CUP PO PRN (15:30)
[2018-03-02] MEDS ORDERED: SENNOSIDES 8.6 MG TAB PO PRN (15:30)
[2018-03-02] MEDS ORDERED: BISACODYL 10 MG SUPP RECTAL PRN (15:30)
[2018-03-02] MEDS ORDERED: MAGNESIUM HYDROXIDE SUSP 30 ML CUP PO PRN (15:30)
[2018-03-02] MEDS ORDERED: NALOXONE HCL 0.4 MG/ML AMP IV PUSH PRN (15:30)
[2018-03-02] MEDS ORDERED: SODIUM CHLORIDE 0.9% FLUSH 10 ML FLUSH IV FLUSH PRN (15:30)
[2018-03-02] MEDS ORDERED: ACETAMINOPHEN 325 MG TAB PO PRN (15:30)
[2018-03-02] MEDS ORDERED: ATORVASTATIN 40 MG TAB PO ONE (15:45)
[2018-03-02] MEDS ORDERED: METOPROLOL TARTRATE 25 MG TAB PO ONE (15:45)
[2018-03-02] MEDS ORDERED: AZIT250T3 PO (15:48)
[2018-03-02] MEDS ORDERED: ISOS30TA3 PO (15:48)
[2018-03-02] MEDS ORDERED: MULTTAB67 PO (15:48)
[2018-03-02] MEDS ORDERED: ADVA250A INH (15:48)
[2018-03-02] MEDS ORDERED: DOCU1CAP66 PO (15:48)
[2018-03-02] MEDS ORDERED: VITA250T3 PO (15:48)
[2018-03-02] MEDS ORDERED: IPRASOL NEB (15:48)
[2018-03-02] MEDS ORDERED: CALTCHW5 PO (15:48)
[2018-03-02] MEDS ORDERED: ALPRAZolam 0.5 MG TAB PO PRN (16:00)
--- NOTE | 2018-03-02 16:21 | HHI.HP ---
HPI Service [facility] Hospitalists Primary Care Physician Piper Guadarrama MD Admission Diagnosis NSTEMI, dyspnea Diagnoses: Chief Complaint: Shortness of breath Fatigue Chest pain Travel History International Travel<30 Days: No Contact w/Intl Traveler <30 Da: No Traveled to Known Affected Are: No History of Present Illness This is a 67-year-old female with past medical history significant for coronary artery disease status post previous CA with cardiac stenting, COPD with chronic respiratory insufficiency on 3 L of oxygen at home 14/05, dyslipidemia, left sided trigeminal neuralgia, hypertension, hypothyroidism, anxiety and depression who presents to [facility] ED with complaints of profound fatigue , dyspnea on exertion, chest discomfort and left-sided facial pain. Patient's daughters at the bedside and provides much of the history. Patient has chronic shortness of breath developed a sudden onset of extreme dyspnea today with minimal exertion walking from the bedroom to the bathroom. Patient reports associated midsternal chest discomfort with radiation to the back and down the left arm. Additionally, patient reports worsening left-sided facial pain that she originally thought was due to exacerbation of her trigeminal neuralgia but reports she has had previous MIs that presented with facial pain. Patient reports taking nitroglycerin at home with some improvement. She admits that she has been taking nitroglycerin all week because of increased left-sided facial pain. She reports some cough but no sputum production. She denies any associated nausea vomiting or abdominal pain. She denies any dizziness, headache or diaphoresis. She reports taking her normal full dose aspirin and Plavix at the house today but has not taken her metoprolol. She denies any lower extremity swelling. She follows with Dr. Ochoa as an outpatient. In the ED, her initial troponin was elevated 0.10. EKG shows no ST segment abnormalities. Patient was started on Heparin drip and cardiology has been consulted. Review of Systems Except as stated in HPI: all other systems reviewed are Neg Past Family Social History Past Medical History CAD s/p CA x 2, previous cardiac stenting COPD Chronic respiratory insufficiency on 3 L oxygen at home Hypertension Dyslipidemia Anxiety Depression History of kidney stones Past Surgical History Cardiac stenting, left main stenting at [facility] in 2007 Partial thyroidectomy Left ankle ORIF Appendectomy Ventral hernia repair 2016 Bowel resection for SBO Tubal ligation Reported Medications Metoprolol Tartrate 25 Mg Tab 25 Mg PO BID Caltrate 600+D Chew (Calcium Carbonate-Vitamin D Chew) 600-400 Mg-Unit Chew 1 Tab PO BID Vitamin C (Ascorbic Acid) 250 Mg Tab 500 Mg PO DAILY Multiple Vitamin 1 Tab 1 Tab PO DAILY Stool Softener (Docusate Sodium) 100 Mg Cap 1 Cap PO BID Duoneb (Ipratropium-Albuterol Neb) 0.5-2.5 Mg/3 Ml Neb 3 Ml NEB Q4HR PRN Azithromycin 250 Mg Tab 250 Mg PO WEFR Take 1 tablet (250mg) daily on Sunday,Sunday and Sunday Advair Diskus Inh (Fluticasone-Salmeterol Inh) 250-50 Mcg/Blist Aer 2 Puff INH BID Rinse mouth after use. Isosorbide Mononitrate ER (Isosorbide Mononitrate) 30 Mg Winifred 30 Mg PO DAILY Spiriva Handihaler (Tiotropium Inh) 18 Mcg Cap 18 Mcg INH DAILY 1 capsule = 18 mcg Daliresp (Roflumilast) 500 Mcg Tab 500 Mcg PO DAILY Amlodipine (Amlodipine Besylate) 10 Mg Tab 10 Mg PO DAILY Lipitor (Atorvastatin Calcium) 80 Mg Tab 80 Mg PO HS Wellbutrin Xl 24 HR (Bupropion HCl) 150 Mg Tab 150 Mg PO BID Xanax (Alprazolam) 0.5 Mg Tab 0.5 Mg PO BID PRN Aspirin 325 Mg Tab 325 Mg PO DAILY Plavix (Clopidogrel Bisulfate) 75 Mg Tab 75 Mg PO DAILY Allergies: Coded Allergies: lisinopril (Unverified Allergy, Severe, COUGH, 11/09/17) NEW ALLERGRY FROM DR. GUADARRAMA'S OFFICE Active Ordered Medications Current Medications Medications (Trade) Dose Ordered Sig/Matthew Route Start Time Stop Time Status Last Admin (Heparin Inj) 5,000 units UNSCH PRN IV PUSH 03/02/18 21:15 (Heparin Inj) 2,500 units UNSCH PRN IV PUSH 03/02/18 21:15 Heparin Sodium/ Dextrose 250 ml @ 10 mls/hr TITRATE PRN IV 03/02/18 15:15 03/02/18 15:37 (NS Flush) 2 ml UNSCH PRN IV FLUSH 03/02/18 15:30 (NS Flush) 2 ml BID IV FLUSH 03/02/18 21:00 (Tylenol) 650 mg Q4H PRN PO 03/02/18 15:30 (Narcan Inj) 0.4 mg UNSCH PRN IV PUSH 03/02/18 15:30 (Milk Of Magnesia Liq) 30 ml Q12H PRN PO 03/02/18 15:30 (Senokot) 17.2 mg Q12H PRN PO 03/02/18 15:30 (Dulcolax Supp) 10 mg DAILY PRN RECTAL 03/02/18 15:30 (Lactulose Liq) 30 ml DAILY PRN PO 03/02/18 15:30 (Duoneb Neb) 1 ampule Q6HR NEB PRN NEB 03/02/18 15:45 (Lopressor) 25 mg Q12HR PO 03/03/18 09:00 (Ecotrin Ec) 81 mg DAILY PO 03/03/18 09:00 (Lipitor) 40 mg HS PO 03/03/18 21:00 (Norvasc) 10 mg DAILY PO 03/03/18 09:00 (Daliresp) 500 mcg DAILY PO 03/03/18 09:00 (Spiriva Inh) 18 mcg DAILY INH 03/03/18 09:00 (Xanax) 0.5 mg BID PO 03/02/18 21:00 Family History Hypertension Social History Patient has a history of tobacco use but quit smoking in 2002. Prior to quitting, patient smoked 1ppd for over thirty years. She denies any alcohol consumption or illicit drug use. Physical Exam Vital Signs Vital Signs Date Time Temp Pulse Resp B/P (MAP) Pulse Ox O2 Delivery O2 Flow Rate FiO2 03/02/18 15:34 107 22 135/65 (88) 97 Nasal Cannula 3.00 03/02/18 14:04 99 Nasal Cannula 3.00 03/02/18 14:04 99 Nasal Cannula 3.00 03/02/18 13:58 98.2 94 24 185/84 (117) 99 Physical Exam GENERAL: This is a well-nourished, well-developed obese female patient , in no distress. Awake and alert. Daughter is at the bedside. SKIN: No rashes, ecchymoses or lesions. Cool and dry. +nitropaste left chest wall HEAD: Atraumatic. Normocephalic. No temporal or scalp tenderness. EYES: Pupils equal round and reactive. Extraocular motions intact. No scleral icterus. No injection or drainage. ENT: Nose without bleeding or purulent drainage. Throat without erythema, tonsillar hypertrophy or exudate. Uvula midline. Airway patent. NECK: Trachea midline. No lymphadenopathy. Supple, nontender, no meningeal signs. CARDIOVASCULAR: Regular rate and rhythm without murmurs, gallops, or rubs. RESPIRATORY: Diminished but clear to auscultation. Breath sounds equal bilaterally. No wheezes, rales, or rhonchi. GASTROINTESTINAL: Abdomen soft, non-tender, nondistended. No hepato-splenomegaly , or palpable masses. No guarding. MUSCULOSKELETAL: Extremities without clubbing, cyanosis, or edema. No joint tenderness, effusion, or edema noted. No calf tenderness. NEUROLOGICAL: Awake and alert. Cranial nerves II through XII grossly intact. Motor and sensory grossly within normal limits. No focal neurologic finding appreciated. Normal speech. Laboratory Laboratory Tests Test 03/02/18 14:00 White Blood Count 8.7 Red Blood Count 4.57 Hemoglobin 13.2 Hematocrit 39.8 Mean Corpuscular Volume 87.1 Mean Corpuscular Hemoglobin 28.8 Mean Corpuscular Hemoglobin Concent 33.1 Red Cell Distribution Width 13.5 Platelet Count 230 Mean Platelet Volume 8.7 Neutrophils (%) (Auto) 70.7 Lymphocytes (%) (Auto) 19.2 Monocytes (%) (Auto) 5.9 Eosinophils (%) (Auto) 3.4 Basophils (%) (Auto) 0.8 Neutrophils # (Auto) 6.1 Lymphocytes # (Auto) 1.7 Monocytes # (Auto) 0.5 Eosinophils # (Auto) 0.3 Basophils # (Auto) 0.1 CBC Comment DIFF FINAL Differential Comment Prothrombin Time 10.2 Prothromb Time International Ratio 1.0 Activated Partial Thromboplast Time 29.4 D-Dimer Quantitative (PE/DVT) 0.50 Blood Urea Nitrogen 15 Creatinine 0.72 Random Glucose 106 Total Protein 7.1 Albumin 3.5 Calcium Level 8.9 Alkaline Phosphatase 81 Aspartate Amino Transf (AST/SGOT) 22 Alanine Aminotransferase (ALT/SGPT) 23 Total Bilirubin 0.6 Sodium Level 142 Potassium Level 3.7 Chloride Level 101 Carbon Dioxide Level 33.8 Anion Gap 7 Estimat Glomerular Filtration Rate 81 Troponin I 0.10 B-Type Natriuretic Peptide 206 Result Diagram: 03/02/18 1400 03/02/18 1400 Imaging Last Impressions Chest X-Ray 03/02/18 1401 Signed Impressions: Service Date/Time: Friday, March 02, 2018 14:06 - CONCLUSION: Mild hyperinflation and minimal bibasilar parenchymal changes stable in the interval. Yan Roy MD FACR Caprini VTE Risk Assessment Caprini VTE Risk Assessment: Mod/High Risk (score >= 2) Caprini Risk Assessment Model Point Value = 1 Point Value = 2 Point Value = 3 Point Value = 5 Age 41-60 Minor surgery BMI > 25 kg/m2 Swollen legs Varicose veins or History of unexplained or recurrent spontaneous Oral contraceptives or hormone replacement Sepsis (< 1 month) Serious lung disease, including pneumonia (< 1 month) Abnormal pulmonary function Acute myocardial infarction Congestive heart failure (< 1 month) History of inflammatory bowel disease Medical patient at bed rest Age 61-74 Arthroscopic surgery Major open surgery (> 45 min) Laparoscopic surgery (> 45 min) Malignancy Confined to bed (> 72 hours) Immobilizing plaster cast Central venous access Age >= 75 History of VTE Family history of VTE Factor V Leiden Prothrombin [id number] Lupus anticoagulant Anticardiolipin antibodies Elevated serum homocysteine Heparin-induced thrombocytopenia Other congenital or acquired thrombophilia Stroke (< 1 month) Elective arthroplasty Hip, pelvis, or leg fracture Acute spinal cord injury (< 1 month) Prophylaxis Regimen Total Risk Factor Score Risk Level Prophylaxis Regimen 0-1 Low Early ambulation 2 Moderate Order ONE of the following: *Sequential Compression Device (SCD) *Heparin 5000 units SQ BID 3-4 Higher Order ONE of the following medications: *Heparin 5000 units SQ TID *Enoxaparin/Lovenox 40 mg SQ daily (WT < 150 kg, CrCl > 30 mL/min) *Enoxaparin/Lovenox 30 mg SQ daily (WT < 150 kg, CrCl > 10-29 mL/min) *Enoxaparin/Lovenox 30 mg SQ BID (WT < 150 kg, CrCl > 30 mL/min) AND/OR *Sequential Compression Device (SCD) 5 or more Highest Order ONE of the following medications: *Heparin 5000 units SQ TID (Preferred with Epidurals) *Enoxaparin/Lovenox 40 mg SQ daily (WT < 150 kg, CrCl > 30 mL/min) *Enoxaparin/Lovenox 30 mg SQ daily (WT < 150 kg, CrCl > 10-29 mL/min) *Enoxaparin/Lovenox 30 mg SQ BID (WT < 150 kg, CrCl > 30 mL/min) AND *Sequential Compression Device (SCD) Assessment and Plan Assessment and Plan 67-year-old female with past medical history significant for coronary artery disease status post previous CA with cardiac stenting, COPD with chronic respiratory insufficiency on 3 L of oxygen at home 24 7, dyslipidemia, trigeminal neuralgia, hypertension, hypothyroidism, anxiety and depression who presents to [facility] ED with complaints of profound fatigue, dyspnea on exertion, chest discomfort and left-sided facial pain. NSTEMI CAD s/p CA x 2, previous cardiac stenting Initial trop 0.10 EKG shows a sinus rhythm with no acute ST segment elevation or depression. -Continue heparin drip -Continue to trend cardiac enzymes and EKGs -monitor on telemetry -Consult cardiology, appreciate assistance -Give metoprolol 25 mg 1 dose now and continue twice daily -Continue Nitro paste -Lipitor 40 mg now and continue daily -Hold Plavix. Continue aspirin 81 mg daily COPD, not in acute exacerbation Chronic respiratory insufficiency, O2 dependent on 3 L at home Chest x-ray reveals mild hyperinflation, minimal bibasilar parenchymal changes, stable, images reviewed by me -Continue supplemental oxygen to maintain O2 sats greater than 92% -Continue to monitor respiratory status -Continue home dose of Daliresp and Spiriva -Duonebs prn Hypertension, chronic, elevated at presentation but now better controlled -Resume patient on home dose of Norvasc 10 mg daily, Metoprolol 25mg BID and Isosorbide 30mg daily -Continue to monitor BP and adjust treatment accordingly Trigeminal neuralgia, possible exacerbation Left sided facial pain Given IV Solumedrol x 1 dose in ED -will hold off on continuation of steroids at this time due to NSTEMI and that left sided facial pain is cardiogenic Anxiety Depression -resume home dose of scheduled Xanax 0.5mg BID and Wellbutrin DVT prophylaxis -Patient on heparin drip Discussed Condition With Patient, daughter, Dr. Zabala Physician Certification 2 Midnight Certification Type: Admission for Inpatient Services Order for Inpatient Services The services are ordered in accordance with Medicare regulations or non- Medicare payer requirements, as applicable. In the case of services not specified as inpatient-only, they are appropriately provided as inpatient services in accordance with the 2-midnight benchmark. Estimated LOS (days): 3 3 days is the estimated time the patient will need to remain in the hospital, assuming treatment plan goals are met and no additional complications. Post-Hospital Plan: Not yet determined Shikha Huffman March 02, 2018 16:21
[2018-03-02] MEDS ORDERED: NITROGLYCERIN-D5W 50 MG/250 ML 250 ML IV PRN (17:00)
--- NOTE | 2018-03-02 18:00 | EKG ---
Date Performed: 03/02/2018 Time Performed: 14:04:41 PTAGE: 67 years EKG: Sinus rhythm INFERIOR MYOCARDIAL INFARCTION, OLD NONSPECIFIC ST-T CHANGES ABNORMAL ECG PREVIOUS TRACING : 11/09/2017 21.04 Since the previous tracing, no significant change noted. DOCTOR: Aisha Sarmiento Interpretating Date/Time 03/02/2018 17:59:37
[2018-03-02] MEDS: buPROPion HCL 150 MG SUSTAINED RELEASE TAB PO SCH (19:36)
[2018-03-02] MEDS: ALPRAZolam 0.5 MG TAB PO SCH (19:37)
[2018-03-02] MEDS: SODIUM CHLORIDE 0.9% FLUSH 10 ML FLUSH IV FLUSH SCH (19:37)
--- NOTE | 2018-03-02 20:55 | MB ---
cc: Ambrocio Christiansen MD, Vance E MD DATE: 03/02/2018 REASON FOR CONSULTATION: Evaluation of coronary artery disease. HISTORY OF PRESENT ILLNESS: Renu Rosario is a 67-year-old woman who follows with Dr. Ochoa. The patient has known coronary artery disease. She also has extremely severe coronary disease. She had a cardiac catheterization 09/24/2008. She had severe left main disease. She was not deemed to be an adequate candidate for bypass so she underwent stenting of her left main by Dr. Nacho Green in [place]. The stent extends from the left main into the LAD with balloon angioplasty at the ostium of the circumflex and apparently had a good result. Dr. Lanza's cath report also indicates some disease in the circumflex marginal and right coronary artery, but I do not have any followup on those lesions. She has been on chronic aspirin and Plavix therapy. She also has morbid obesity and very severe COPD and she has had more than one COPD exacerbation. She also has trigeminal neuralgia. She says her left facial pain for the trigeminal neuralgia has been getting much worse in the past month. She has also been more tired than normal the last few weeks. She had some chest tightness yesterday, but no chest tightness today. She finally decided to come into the hospital. The concern is that part of her anginal symptoms also involve the left face according to her, but I do have that verified from old records. Her initial troponin here is 0.10. She has had previous troponin levels this mild before. She tried taking nitroglycerin at home. Nitroglycerin did not relieve her pain, but she thinks it may have made the pain better. PAST MEDICAL HISTORY: Includes coronary artery disease, COPD, morbid obesity, hypertension, hyperlipidemia., kidney stones, anxiety and depression. ALLERGIES: Office chart indicates she is ALLERGIC TO DECADRON AND LISINOPRIL PAST SURGICAL HISTORY: Includes cardiac stenting, partial thyroidectomy, left ankle ORIF, appendectomy, ventral hernia repair in 2016, bowel resection for small-bowel obstruction, tubal ligation MEDICATIONS: 1. Metoprolol 25 b.i.d. 2. Imdur 30 mg daily. 3. Amlodipine 10 mg daily. 4. Aspirin. 5. Plavix. 6. Lipitor 80 mg Plus her non- cardiac medications FAMILY HISTORY: Positive for pancreatic cancer, rheumatoid arthritis, leukemia, breast cancer. SOCIAL HISTORY: She is single, disabled. She is an ex-smoker, smoked 1 pack a day for 30 years. No alcohol use. PHYSICAL EXAMINATION: GENERAL: A morbidly obese white female. She is mildly tachypneic. She is in obvious discomfort and points to her left face. HEENT: Unremarkable. NECK: Shows no JVD. No bruits. CHEST: Shows severely diminished breath sounds. CARDIAC: Soft S1, S2, regular rate and rhythm. No murmurs or gallops. ABDOMEN: Soft, nontender. EXTREMITIES: No clubbing, cyanosis or edema. NEUROLOGIC: She is alert and oriented. CARDIOLOGY STUDIES: EKG shows sinus rhythm, old inferior [place] and nonspecific ST-T wave changes. LABORATORY DATA: Laboratories are charted. Hematocrit is 39.8, creatinine is 0.72. Troponin is 0.1. BNP is 206. IMAGING STUDIES: Chest x-ray report shows mild hyperinflation and minimal basilar parenchymal changes, stable in the interval. IMPRESSION: A patient with known coronary artery disease with previous stenting of her left main in 10/2008. Her symptoms are not typical of ischemia. Troponin, however, is was mildly elevated. It is at this point really unclear if this represents acute coronary syndrome. She thinks some of her left facial pain may be possibly angina related instead of the trigeminal neuralgia, but really it is a complex decision to make. She had normal troponin levels 10/2017 and 06/2017. However, she had troponin level as high as 0.41 on 11/23/2016. PLAN: She is currently on heparin and nitroglycerin drip. We will follow her troponin curve and make further decisions as to whether coronary angiography should be considered. Continue her beta slava. Further therapy to be determined. MD DELMY Meade/ , 07:02 PM , 08:54 PM
[2018-03-02] MEDS ORDERED: ACETAMINOPHEN/HYDROcodone 325 MG/5 MG TAB PO ONE (21:00)
[2018-03-02] MEDS ORDERED: HEPARIN SODIUM - IV 10,000 UNITS/10 ML VIAL IV PUSH PRN ×2 (21:15)
[2018-03-02] MEDS: RESP: ALBUTEROL 2.5 MG/IPRATROPIUM 0.5 MG NEB (PRN) NEB (22:13)
[2018-03-03] VITALS (23 sets, daily range): BP systolic 125–159; BP diastolic 71–85; PULSE 81–120; RESP 18–32; TEMP 97.4–98.9; O2SAT 85–97
[2018-03-03] MEDS: RESP: ALBUTEROL 2.5 MG/IPRATROPIUM 0.5 MG NEB (PRN) NEB ×4 (03:56→22:45)
[2018-03-03] MEDS: ISOSORBIDE MONONITRATE 30 MG CR TAB (IMDUR) PO SCH (06:02)
[2018-03-03] MEDS ORDERED: ACETAMINOPHEN/HYDROcodone 325 MG/5 MG TAB PO PRN (07:00)
[2018-03-03] MEDS ORDERED: SODIUM CHLOR 0.9% 1000 ML INJ 1,000 ML IV SCH ×2 (07:49→12:42)
[2018-03-03] MEDS: ASPIRIN EC 81 MG TABEC PO SCH (09:54)
[2018-03-03] MEDS: TIOTROPIUM BROMIDE 18 MCG INH INH SCH (09:54)
[2018-03-03] MEDS: ROFLUMILAST 500 MCG TAB PO SCH (09:55)
[2018-03-03] MEDS: METOPROLOL TARTRATE 25 MG TAB PO SCH ×2 (09:55→20:20)
[2018-03-03] MEDS: ALPRAZolam 0.5 MG TAB PO SCH ×2 (09:55→19:05)
[2018-03-03] MEDS: buPROPion HCL 150 MG SUSTAINED RELEASE TAB PO SCH ×2 (09:57→20:21)
[2018-03-03] MEDS: SODIUM CHLORIDE 0.9% FLUSH 10 ML FLUSH IV FLUSH SCH ×2 (09:58→20:21)
[2018-03-03] MEDS ORDERED: HEPARIN-NS/PF FLUSH BAG 2,000 ML IV FLUSH ONE (10:37)
[2018-03-03] MEDS ORDERED: HEPARIN SODIUM - IV 10,000 UNITS/10 ML VIAL ONE (10:38)
[2018-03-03] MEDS ORDERED: MIDAZOLAM HCL 2 MG/2 ML VIAL ONE ×2 (10:38→11:40)
[2018-03-03] MEDS ORDERED: NITROGLYCERIN INJ 5 ML ONE (10:46)
[2018-03-03] MEDS ORDERED: VERAPAMIL HCL 5 MG/2 ML VIAL ONE (10:46)
[2018-03-03] MEDS ORDERED: BACITRACIN OINT 0.9 GM PKT TOP ONE (12:45)
[2018-03-03] MEDS ORDERED: SODIUM CHLORIDE 0.9% FLUSH 10 ML FLUSH IV FLUSH PRN (12:45)
[2018-03-03] MEDS ORDERED: MISC INFORMATION XX ONE (12:45)
--- NOTE | 2018-03-03 12:51 | PD.CONS ---
History of Present Illness Service CT Surgery Consult Requested By Dr. Christiansen Reason for Consult NSTEMI, left main and 3 vessel CAD Primary Care Physician Piper Guadarrama MD Diagnoses: (1) NSTEMI (non-ST elevated myocardial infarction) (2) COPD (chronic obstructive pulmonary disease) (3) CAD (coronary artery disease) History of Present Illness 67y/o female with known severe COPD and CAD s/p left main stenting at [facility] in 2007 presents with jaw pain, dyspnea, and malaise. She ruled-in for NSTEMI and was taken to the process laboratory specialist where she was found to have stent stenosis in the left main with a 99% RCA lesion. EF is reportedly ~45%. She was evaluated for CABG [place] [address] Vega and turned down due to her severe COPD. She currently is on 3 liters home oxygen continuously and has ecidence of a metabolic alkalosis on her BMP suggestive of chronic hypercapnia. She is followed by Dr. Patton for her lung disease. Review of Systems Constitutional: COMPLAINS OF: Diaphoretic episodes, Fatigue, DENIES: Fever, Weight gain, Weight loss, Chills, Dizziness, Change in appetite, Night Sweats Endocrine: DENIES: Abnorml menstrual pattern, Heat/cold intolerance, Polydipsia , Polyuria, Polyphagia Eyes: DENIES: Blurred vision, Diplopia, Eye inflammation, Eye pain, Vision loss , Photosensitivity, Double Vision Ears, nose, mouth, throat: DENIES: Tinnitus, Hearing loss, Vertigo, Nasal discharge, Oral lesions, Throat pain, Hoarseness, Ear Pain, Running Nose, Epistaxis, Sinus Pain, Toothache, Odynophagia Respiratory: COMPLAINS OF: Cough, Wheezing, Sputum production, Shortness of breath, DENIES: Apneas, Snoring, Hemoptysis Cardiovascular: COMPLAINS OF: Chest pain, Dyspnea on Exertion, DENIES: Palpitations, Syncope, PND, Lower Extremity Edema, Orthopnea, Claudication Gastrointestinal: DENIES: Abdominal pain, Black stools, Bloody stools, Constipation, Diarrhea, Nausea, Vomiting, Difficulty Swallowing, Anorexia Genitourinary: DENIES: Abnormal vaginal bleeding, Dysmenorrhea, Dyspareunia, Sexual dysfunction, Urinary frequency, Urinary incontinence, Urgency, Hematuria , Dysuria, Nocturia, Vaginal discharge Musculoskeletal: COMPLAINS OF: Muscle aches, DENIES: Joint pain, Stiffness, Joint Swelling, Back pain, Neck pain Integumentary: DENIES: Abnormal pigmentation, Pruritus, Rash, Nail changes, Breast masses, Breast skin changes, Nipple discharge Hematologic/lymphatic: DENIES: Bruising, Lymphadenopathy Immunologic/allergic: DENIES: Eczema, Urticaria Neurologic: DENIES: Abnormal gait, Headache, Localized weakness, Paresthesias, Seizures, Speech Problems, Tremor, Poor Balance Psychiatric: DENIES: Anxiety, Confusion, Mood changes, Depression, Hallucinations, Agitation, Suicidal Ideation, Homicidal Ideation, Delusions Past Family Social History Allergies: Coded Allergies: lisinopril (Unverified Allergy, Severe, COUGH, 11/09/17) NEW ALLERGRY FROM DR. GUADARRAMA'S OFFICE Past Medical History Past Medical History CAD s/p [place] x 2, previous cardiac stenting COPD Chronic respiratory insufficiency on 3 L oxygen at home Hypertension Dyslipidemia Anxiety Depression History of kidney stones Past Surgical History Cardiac stenting, left main stenting at [facility] in 2007 Partial thyroidectomy Left ankle ORIF Appendectomy Ventral hernia repair 2016 Bowel resection for SBO Tubal ligation Reported Medications Metoprolol Tartrate 25 Mg Tab 25 Mg PO BID Caltrate 600+D Chew (Calcium Carbonate-Vitamin D Chew) 600-400 Mg-Unit Chew 1 Tab PO BID Vitamin C (Ascorbic Acid) 250 Mg Tab 500 Mg PO DAILY Multiple Vitamin 1 Tab 1 Tab PO DAILY Stool Softener (Docusate Sodium) 100 Mg Cap 1 Cap PO BID Duoneb (Ipratropium-Albuterol Neb) 0.5-2.5 Mg/3 Ml Neb 3 Ml NEB Q4HR PRN Azithromycin 250 Mg Tab 250 Mg PO MOWEFR Take 1 tablet (250mg) daily on Sunday,Sunday and Sunday Advair Diskus Inh (Fluticasone-Salmeterol Inh) 250-50 Mcg/Blist Aer 2 Puff INH BID Rinse mouth after use. Isosorbide Mononitrate ER (Isosorbide Mononitrate) 30 Mg Winifred 30 Mg PO DAILY Spiriva Handihaler (Tiotropium Inh) 18 Mcg Cap 18 Mcg INH DAILY 1 capsule = 18 mcg Daliresp (Roflumilast) 500 Mcg Tab 500 Mcg PO DAILY Amlodipine (Amlodipine Besylate) 10 Mg Tab 10 Mg PO DAILY Lipitor (Atorvastatin Calcium) 80 Mg Tab 80 Mg PO HS Wellbutrin Xl 24 HR (Bupropion HCl) 150 Mg Tab 150 Mg PO BID Xanax (Alprazolam) 0.5 Mg Tab 0.5 Mg PO BID PRN Aspirin 325 Mg Tab 325 Mg PO DAILY Plavix (Clopidogrel Bisulfate) 75 Mg Tab 75 Mg PO DAILY Active Ordered Medications Current Medications Medications (Trade) Dose Ordered Sig/Matthew Route Start Time Stop Time Status Last Admin (Heparin Inj) 5,000 units UNSCH PRN IV PUSH 03/02/18 21:15 (Heparin Inj) 2,500 units UNSCH PRN IV PUSH 03/02/18 21:15 Heparin Sodium/ Dextrose 250 ml @ 10 mls/hr TITRATE PRN IV 03/02/18 15:15 03/02/18 15:37 (NS Flush) 2 ml UNSCH PRN IV FLUSH 03/02/18 15:30 (NS Flush) 2 ml BID IV FLUSH 03/02/18 21:00 03/02/18 19:37 (Tylenol) 650 mg Q4H PRN PO 03/02/18 15:30 (Narcan Inj) 0.4 mg UNSCH PRN IV PUSH 03/02/18 15:30 (Milk Of Magnesia Liq) 30 ml Q12H PRN PO 03/02/18 15:30 (Senokot) 17.2 mg Q12H PRN PO 03/02/18 15:30 (Dulcolax Supp) 10 mg DAILY PRN RECTAL 03/02/18 15:30 (Lactulose Liq) 30 ml DAILY PRN PO 03/02/18 15:30 (Duoneb Neb) 1 ampule Q6HR NEB PRN NEB 03/02/18 15:45 03/03/18 08:11 (Lopressor) 25 mg Q12HR PO 03/03/18 09:00 03/03/18 09:55 (Ecotrin Ec) 81 mg DAILY PO 03/03/18 09:00 03/03/18 09:54 (Lipitor) 40 mg HS PO 03/03/18 21:00 (Norvasc) 10 mg DAILY PO 03/03/18 09:00 03/03/18 09:55 (Daliresp) 500 mcg DAILY PO 03/03/18 09:00 03/03/18 09:55 (Spiriva Inh) 18 mcg DAILY INH 03/03/18 09:00 03/03/18 09:54 (Xanax) 0.5 mg BID PO 03/02/18 21:00 03/03/18 09:55 Nitroglycerin/ Dextrose 250 ml @ 1.5 mls/hr TITRATE PRN IV 03/02/18 17:00 03/02/18 17:06 (Wellbutrin Sr) 150 mg BID PO 03/02/18 21:00 03/03/18 09:57 (Imdur) 30 mg DAILY@0700 PO 03/03/18 07:00 03/03/18 06:02 ([place] 5-325 Mg) 1 tab Q6H PRN PO 03/03/18 07:00 Sodium Chloride 1,000 ml @ 42 mls/hr [id number] IV 03/03/18 07:49 03/08/18 07:48 03/03/18 10:57 Family History HTN Social History She quit smoking ~1ppd for 30 years in 2007. Denies ETOH Daughter is an ED RN at [employer] Physical Exam Vital Signs Vital Signs Date Time Temp Pulse Resp B/P (MAP) Pulse Ox O2 Delivery O2 Flow Rate FiO2 03/03/18 11:02 98.0 120 24 159/80 (106) 92 03/03/18 09:00 112 03/03/18 08:12 93 Nasal Cannula 3.00 03/03/18 08:00 90 03/03/18 07:57 93 Nasal Cannula 3.00 03/03/18 07:57 97.7 109 24 145/74 (97) 93 03/03/18 07:00 110 03/03/18 06:00 95 03/03/18 05:00 96 03/03/18 04:00 97 03/03/18 04:00 98.2 97 24 156/85 (108) 92 03/03/18 03:00 98 03/03/18 02:00 95 03/03/18 01:00 92 03/03/18 00:00 Nasal Cannula 3.00 03/03/18 00:00 97.4 99 24 151/71 (97) 95 03/03/18 00:00 99 03/02/18 23:00 92 03/02/18 22:00 95 03/02/18 21:00 89 03/02/18 20:57 95 Nasal Cannula 3.00 03/02/18 20:00 87 03/02/18 20:00 97.9 89 24 154/82 (106) 94 03/02/18 20:00 Nasal Cannula 3.00 03/02/18 18:26 97.2 93 24 164/88 (113) 93 03/02/18 17:30 80 20 173/85 (114) 95 Nasal Cannula 3.00 03/02/18 17:06 82 180/106 03/02/18 17:00 83 19 180/106 (130) 95 Nasal Cannula 3.00 03/02/18 15:34 107 22 135/65 (88) 97 Nasal Cannula 3.00 03/02/18 15:30 92 24 95 Nasal Cannula 3.00 03/02/18 14:04 99 Nasal Cannula 3.00 03/02/18 14:04 99 Nasal Cannula 3.00 03/02/18 13:58 98.2 94 24 185/84 (117) 99 Physical Exam GENERAL: This is a well-nourished, well-developed patient, in no apparent distress. SKIN: No rashes, ecchymoses or lesions. Cool and dry. HEAD: Atraumatic. Normocephalic. No temporal or scalp tenderness. EYES: Pupils equal round and reactive. Extraocular motions intact. No scleral icterus. No injection or drainage. ENT: Nose without bleeding, purulent drainage or septal hematoma. Throat without erythema, tonsillar hypertrophy or exudate. Uvula midline. Airway patent. NECK: Trachea midline. No JVD or lymphadenopathy. Supple, nontender, no meningeal signs. CARDIOVASCULAR: Regular rate and rhythm without murmurs, gallops, or rubs. RESPIRATORY: Clear to auscultation. Breath sounds equal bilaterally. No wheezes , rales, or rhonchi. GASTROINTESTINAL: Abdomen soft, non-tender, nondistended. No hepato-splenomegaly , or palpable masses. No guarding. MUSCULOSKELETAL: Extremities without clubbing, cyanosis, or edema. No joint tenderness, effusion, or edema noted. No calf tenderness. Negative Homans sign bilaterally. NEUROLOGICAL: Awake and alert. Cranial nerves II through XII intact. Motor and sensory grossly within normal limits. Five out of 5 muscle strength in all muscle groups. Normal speech. Laboratory Laboratory Tests Test 03/02/18 14:00 03/02/18 17:55 03/02/18 20:01 03/02/18 22:07 White Blood Count 8.7 Red Blood Count 4.57 Hemoglobin 13.2 Hematocrit 39.8 Mean Corpuscular Volume 87.1 Mean Corpuscular Hemoglobin 28.8 Mean Corpuscular Hemoglobin Concent 33.1 Red Cell Distribution Width 13.5 Platelet Count 230 Mean Platelet Volume 8.7 Neutrophils (%) (Auto) 70.7 Lymphocytes (%) (Auto) 19.2 Monocytes (%) (Auto) 5.9 Eosinophils (%) (Auto) 3.4 Basophils (%) (Auto) 0.8 Neutrophils # (Auto) 6.1 Lymphocytes # (Auto) 1.7 Monocytes # (Auto) 0.5 Eosinophils # (Auto) 0.3 Basophils # (Auto) 0.1 CBC Comment DIFF FINAL Differential Comment Prothrombin Time 10.2 Prothromb Time International Ratio 1.0 Activated Partial Thromboplast Time 29.4 53.9 D-Dimer Quantitative (PE/DVT) 0.50 Blood Urea Nitrogen 15 Creatinine 0.72 Random Glucose 106 Total Protein 7.1 Albumin 3.5 Calcium Level 8.9 Alkaline Phosphatase 81 Aspartate Amino Transf (AST/SGOT) 22 Alanine Aminotransferase (ALT/SGPT) 23 Total Bilirubin 0.6 Sodium Level 142 Potassium Level 3.7 Chloride Level 101 Carbon Dioxide Level 33.8 Anion Gap 7 Estimat Glomerular Filtration Rate 81 Troponin I 0.10 0.84 B-Type Natriuretic Peptide 206 Platelet Function P2Y12 React Units 164 Test 03/03/18 01:53 03/03/18 05:00 Troponin I 2.25 Activated Partial Thromboplast Time 58.4 Result Diagram: 03/02/18 1400 03/02/18 1400 Imaging Last Impressions Chest X-Ray 03/02/18 1401 Signed Impressions: Service Date/Time: Friday, March 02, 2018 14:06 - CONCLUSION: Mild hyperinflation and minimal bibasilar parenchymal changes stable in the interval. Yan Roy MD FACR Course The patient is currently pain free s/p LHC. Assessment and Plan Problem List: (1) NSTEMI (non-ST elevated myocardial infarction) ICD Codes: I21.4 - Non-ST elevation (NSTEMI) myocardial infarction Status: Acute (2) COPD (chronic obstructive pulmonary disease) ICD Codes: J44.9 - Chronic obstructive pulmonary disease, unspecified Status: Chronic (3) CAD (coronary artery disease) ICD Codes: I25.10 - Coronary artery disease Status: Chronic (4) Dyspnea ICD Codes: R06.00 - Dyspnea, unspecified Status: Acute Assessment and Plan 67y/o female presents with a NSTEMI, left main and 3 vessel CAD, and severe COPD. Risk of CABG is summarized below but does not take into account her lung disease with home oxygen. Her family will discuss potential CABG and she will be anticoagulated in the meantime. She has also been taking Plavix. Will follow-up with a disposition BARAK. Risk Model and Variables - STS Adult Cardiac Surgery Database Version 2.81 RISK SCORES About the STS Risk Calculator Procedure: CAB Only Risk of Mortality: 2.71% Morbidity or Mortality: 19.978% Long Length of Stay: 9.646% Short Length of Stay: 28.293% Permanent Stroke: 1.28% Prolonged Ventilation: 16.64% DSW Infection: 0.994% Renal Failure: 2.03% Reoperation: 6.26% Problem Qualifiers (1) COPD (chronic obstructive pulmonary disease): Qualified Codes: J43.1 - Panlobular emphysema (2) CAD (coronary artery disease): Qualified Codes: I25.110 - Atherosclerotic heart disease of redding coronary artery with unstable angina pectoris (3) Dyspnea: Qualified Codes: R06.09 - Other forms of dyspnea Rika Mark MD March 03, 2018 12:51
--- NOTE | 2018-03-03 12:51 | CATHPROC ---
[facility] HIS Report Study Information Study Number Admission Scheduled Start Study Start [id number] Mar 02 2018 3:35PM 03/03/2018 Mar 03 2018 10:10AM [place] Service Cardiac Catheterization Admit Source Facility Department Emergency department [facility] Work[facility] Physician and Clinical Staff Initial Ambrocio Knox Cook Specialty Rama Manley,RN Cook Specialty Alexandr Duong,RN Recorder Dalia Burdick,RT(R) (BS) Scrub Yessenia Lambert,RT(R) Procedures Performed Procedure Location (Site) Vessel Name Abdominal Angiogram Abd Aorta (A3) Aorta Coronary Angiograms LCA Left Coronary Coronary Angiograms RCA Right Coronary L Heart Cath Wire insertion Radial (right) Radial Art. Equipment Time Garment Manufacturing Supervisor Description Size Mfg Part Number Used/Scraped TRANSDUCER, TRUWAVE [id number] 11:18 TEAGUE BOWENS * Used W/STOCKCOCK *[id number] *[id number] 11:18 MALLINCKRODT SYRINGE, ANGIOMAT 150ML 150ML *[id number] Used 2SUB [id number] 11:18 [employer] PACK, CCL CUSTOM * Used *[id number] 11:18 [employer] SUPPORT, ARTERIAL ADULT [id number] *[id number] Used [id number] 11:18 [employer] PACER PEN, SKIN DUAL W/ RULER * Used *[id number] BAND, RADIAL COMPRESSION TR [id number] 12:11 [employer] MEDICAL 24CM Used SHORT 24 *[id number] 11:18 [employer] MEDICAL WIRE, EXCHANGE 260CM 3MMJ 260CM Used *[id number] 11:18 NAMIC MANIFOLD, 4 PORT * Used *[id number] 12:00 NAMIC TUBING, HIGH PRESSURE 20" 20" Used *[id number] 11:18 [employer] OMNIPAQUE, 350 MG, 100ML 100ML [id number] Used [id number] 11:18 Soft Tissue Regeneration BLANKET,WARM AIR CCL * Used *[id number] 11:18 Soft Tissue Regeneration JELCO NEEDLE 4056 *[id number] Used CATHETER, FR5 OPTITORQUE [id number] 11:34 [employer] MED[employer] FR 5 Used RADIAL TIG 4.0 *[id number] SHEATH, FR6 TRANSRADIAL RM*[id number] 11:18 [employer] FR 6 Used SLENDER 10CM *[id number] History: Current Medications Medication Dosage/Unit Route Frequency Last Date/Time Taken HEPARIN Beta Rosemary NORVASC Imdur ASA PLAVIX History: Allergies Allergy Reaction lisinopril COUGH History: Risk Factors Family History of Hypertension Dyslipidemia Previous [place] Previous Heart Failure Premature CAD Yes Yes No Yes No Prior Valve Prior PCI Prior PCIDate Prior CABG Surgery No Yes 10/22/2008 No Cerebrovascular Peripheral Artery Chronic Lung On Dialysis Diabetes Disease Disease Disease No No No Yes No History: Symptoms/Diagnosis Selection Items Chest pain History: Stress Tests Stress or Imaging Studies Performed No History: Other Current Smoker Method Quit Packs a Day Years Used Pack Years No Cigarettes 10 Years Ago 1 45 45 Labs Hgb (g/dl) Hct (%) WBC (l/cumm) Platelets (thousands) 11.60-17.00 35.00-51.00 4.00-11.00 150.00-450.00 13.2 39.8 8.7 230 Glucose (mg/dl) BUN (mg/dl) Creatinine (mg/dl) BUN:Creatinine (1:x) 74.00-106.00 7.00-18.00 0.50-1.30 10.00-20.00 106 15 0.7 21.4 Na (meq/l) K (meq/l) 136.00-145.00 3.50-5.10 142 3.7 INR (PTT:PT) 0.90-1.10 1 Troponin I (ng/ml) CPK-MB (ng/ML) 0.02-0.05 0.50-3.60 2.25 Not Drawn Medication Medication Total Dose (Bolus/Oral) Medication Total Dosage/Unit 1% XYLOCAINE 1 mL FENTANYL 25 mcg OXYGEN 3 l/min RADIAL COCKTAIL 1 units VERSED 3 mg Medications (Bolus/Oral) Medication Time Given Dosage/Unit Administered By Reason OXYGEN 03/03/2018 11:10:26 AM 3 l/min Patient arrived on 3 l/min OXYGEN via Nasal. VERSED 03/03/2018 11:34:03 AM 1 mg Rama Manley 1 mg VERSED given in lab by Rama Manley RN in Left Antecubital via Peripheral IV. VERSED 03/03/2018 11:39:43 AM 1 mg Rama Manley 1 mg VERSED given in lab by Rama Manley RN in Left Antecubital via Peripheral IV. 1% XYLOCAINE 03/03/2018 11:41:16 AM 1 mL Ambrocio Christiansen 1 mL 1% XYLOCAINE given in lab by Ambrocio Christiansen in Right Radial via Subcutaneous. VERSED 03/03/2018 11:41:32 AM 1 mg Rama Manley 1 mg VERSED given in lab by Rama Manley, RN in Left Antecubital via Peripheral IV. Ntg 200mcg Verapamil 2.5mg Heparin RADIAL COCKTAIL 03/03/2018 11:44:47 AM 1 units Amrbocio Christiansen 3000U 1 units RADIAL COCKTAIL given in lab by Ambrocio Christiansen via Radial. Reason: Ntg 200mcg Verapamil 2.5mg FENTANYL 03/03/2018 11:44:47 AM 25 mcg Rama Manley 25 mcg FENTANYL given in lab by Rama Manley, LUCIA in Left Antecubital via Peripheral IV. Medication (Drip) Medication Time Given Dosage/Unit Concentration/Unit Diluent (ml) Solution HEPARIN DRIP 03/03/2018 11:10:13 AM 1000 mL/hr 79704 mL 250 D5W Patient arrived on 1000 mL/hr HEPARIN DRIP in Left Antecubital via Peripheral IV. Pump/Drip Flow = 10 ml/hr using D5W [place] [address] mL in 250 ml. IV Solutions 03/03/2018 11:10:44 AM 0 mL (IV) 500 NaCl .9 IV Solutions given in lab by Rama Manley, LUCIA in Left Antecubital via Peripheral IV. Pump/Drip Gonzalez w = 30 ml/hr using NaCl .9. NITROGLYCERIN DRIP 03/03/2018 11:10:12 AM 20 mcg/min 50 mg 250 D5W Patient arrived on 20 mcg/min NITROGLYCERIN DRIP in Right Hand via Peripheral IV. Pump/Drip Flow = 6 ml/hr using D5W with a concentration of 50 mg in 250 ml. Initial Case Assessment Cardiovascular HR Rhythm NIBP Chest Pain 93 reg 147/93 0 Edema Present Skin color Skin Mild Normal Warm Dry Circulatory - Right Pulses Dorsalis Pedis Femoral Radial 2 1 3 Scale (0,1,2,3,4,d) Circulatory - Left Pulses Dorsalis Pedis Femoral Radial 2 Scale (0,1,2,3,4,d) Circulatory - Lower Extremities Color Lower Right Color Lower Left Normal Normal Neurological State Oriented to time-place- Alert Moves all extremities person Respiration - General Respiration Rate SpO2 (%) O2 (lpm) (B/min) 20 93 3 Chronological Log Time Study Chronological Log 11::14 Patient arrived via Bed. 11:01:17 Patient Name, D.O.B, / Armband Verified By R.N. 11:01:20 Consent signed by the physician and the patient and verified by the [facility] staff. Patient arrived on 20 mcg/min NITROGLYCERIN DRIP in Right Hand via Peripheral IV. Pump/Drip Gonzalez w = 6 ml/hr using 11:10:12 D5W with a concentration of 50 mg in 250 ml. Patient arrived on 1000 mL/hr HEPARIN DRIP in Left Antecubital via Peripheral IV. Pump/Drip Gonzalez w = 10 ml/hr using 11:10:13 D5[place] [address] mL in 250 ml. 11:10:25 Pre-op and post- op instructions given; patient acknowledges understanding of instructions. 11:10:25 Verbal Stimulation=2 Physical Stimulation=2 Airway=2 Respiration=2 TOTAL=8. (0=absent, 1=li mited, 2=present) 11:10:26 Patient arrived on 3 l/min OXYGEN via Nasal. 11:10:28 Presedation assessment performed by [facility] Work[facility] RN. 11:10:29 Allens test performed on the right radial and ulnar artery. 11:10:38 Patient has been NPO for More than 6Hrs. 11:10:39 Skin Breakdown none per pt 11:10:40 Patient Warmer Placed on the Table. IV Solutions given in lab by Rama Manley, RN in Left Antecubital via Peripheral IV. Pump/Dr ip Flow = 30 ml/hr using 11:10:44 NaCl .9. 11:10:45 Disposable Defibrillator Pads Placed On Patient. 11:10:46 Evi Prominences Protected 11:10:47 A # 22 IV was noted in the Hand (right). Grade = 0 11:10:49 History and physical on the chart or being dictated. Assessment: Initial Case, HR=93 BPM, Rhythm=reg, UHXM=475/93 mmhg, Chest Pain=0, Edema=Mild, Co frantz=Normal, Skin = Warm, Dry Right Pulses: Mckinley Ped=2, Femoral=1, Radial=3 Left Pulses: Mckinley Ped=2 11:10:50 Lower Right Extremities: Color=Normal Lower Left Extremities: Color=Normal Neurological: State=Alert, Ox3, AVILA Respiration: Resp=20 B/min, SpO2=93 %, O2=3 lpm Vitals capture started with the following parameters, Patient=Adult, Interval=5 min, Initial Pr icyrwb=808 mmHg, 11:12:42 Deflation Rate=5 mmHg, Cuff placed on Left Arm 11:14:07 UT=389 bpm, PBAC=264/86 mmhg, SpO2=94.0 %, Resp=17 B/min, Pain=0, Vishnu=10, Mccloud=2 11:18:17 HR=97 bpm, XTFC=220/93 mmhg, SpO2=93.0 %, Resp=20 B/min, Pain=0, Vishnu=10, Mccloud=2 11:18:33 Right Radial and groin(s) prepped with 2% chlorhexidine, and draped after a 3 min. waiting time. 11:21:27 MD paged 11:23:18 HR=90 bpm, JVCN=491/85 mmhg, SpO2=94.0 %, Resp=21 B/min, Pain=0, Vishnu=10, Mccloud=2 11:24:02 Pressure channel 1 zeroed. 11:28:17 HR=87 bpm, FBFE=794/77 mmhg, SpO2=94.0 %, Resp=13 B/min, Pain=0, Vishnu=10, Mccloud=2 11:33:16 HR=86 bpm, MNGW=694/74 mmhg, SpO2=94.0 %, Resp=24 B/min, Pain=0, Vishnu=10, Mccloud=2 11:33:41 MD arrived 11:33:50 Reference ECG taken 11:34:03 1 mg VERSED given in lab by Rama Manley, LUCIA in Left Antecubital via Peripheral IV. 11:38:15 HR=84 bpm, QFEJ=108/79 mmhg, SpO2=93.0 %, Resp=21 B/min, Pain=0, Vishnu=10, Mccloud=2 Time Out. Correct patient, correct procedure, correct physician, power injector not loaded with contrast with surgical 11:38:55 team present. Time Out Concurred by MD and individual staff in procedure. 11:39:14 Case Start 11:39:43 1 mg VERSED given in lab by Rama Manley, LUCIA in Left Antecubital via Peripheral IV. 11:41:16 1 mL 1% XYLOCAINE given in lab by Ambrocio Christiansen in Right Radial via Subcutaneous. 11:41:32 1 mg VERSED given in lab by Rama Manley, LUCIA in Left Antecubital via Peripheral IV. 11:43:02 Access site was right Radial Artery. 11:43:16 HR=83 bpm, FQRF=596/76 mmhg, SpO2=93.0 %, Resp=18 B/min, Pain=0, Vishnu=10, Mccloud=2 A SHEATH, FR6 TRANSRADIAL SLENDER 10CM FR 6 was advanced into the Radial (right) using the Perc utaneous 11:43:36 technique. 11:44:47 1 units RADIAL COCKTAIL given in lab by Ambrocio Christiansen via Radial. Reason: Ntg 200mcg Verapa mil 2.5mg 11:44:47 25 mcg FENTANYL given in lab by Rama Manley RN in Left Antecubital via Peripheral IV. A CATHETER, FR5 OPTITORQUE RADIAL TIG 4.0 FR 5 was advanced over a wire. OMNIPAQUE, 350 MG, 100 ML 100ML 11:45:17 was used for injections. 11:48:13 Pressure channel 1 zeroed. 11:48:19 HR=77 bpm, NIBP=98/59 mmhg, SpO2=88.0 %, Resp=13 B/min, Pain=0, Vishnu=10, Mccloud=2 Recorded Pressure: Ao, HR=79, Condition=Condition 1 11:49:24 (Aorta) Ao 89/57/71 11:49:50 The LCA was injected and visualized at various angles. OMNIPAQUE, 350 MG, 100ML 100ML used . 11:53:12 HR=78 bpm, LUHY=813/66 mmhg, SpO2=90.0 %, Resp=10 B/min, Pain=0, Vishnu=10, Mccloud=2 11:55:29 The RCA was injected and visualized at various angles. OMNIPAQUE, 350 MG, 100ML 100ML used . 11:58:15 HR=80 bpm, JQXI=406/72 mmhg, SpO2=93.0 %, Resp=11 B/min, Pain=0, Vishnu=10, Mccloud=2 After removing the current catheter a PIGTAIL STR INFINITI CATHETER FR 6 was advanced over a WI RE, EXCHANGE 11:59:08 260CM 3MMJ 260CM. 12:03:14 HR=84 bpm, JSXH=237/88 mmhg, SpO2=96.0 %, Resp=12 B/min, Pain=0, Vishnu=10, Mccloud=2 12:04:19 Through a PIGTAIL STR INFINITI CATHETER FR 6, The Abdominal Aorta was injected with 20 cc's of contrast. 12:06:49 Catheter was removed 12:08:17 HR=81 bpm, HSWR=361/83 mmhg, SpO2=96.0 %, Resp=12 B/min, Pain=0, Vishnu=10, Mccloud=2 12:08:33 reviewing films. 12:13:20 HR=81 bpm, OAHZ=203/74 mmhg, SpO2=95.0 %, Resp=14 B/min, Pain=0, Vishnu=10, Mccloud=2 12:18:22 HR=81 bpm, QOVQ=143/73 mmhg, SpO2=89.0 %, Resp=11 B/min, Pain=0, Vishnu=10, Mccloud=2 12:20:12 reviewing films with CV surgeon 12:23:21 HR=81 bpm, FQSG=682/82 mmhg, SpO2=96.0 %, Resp=15 B/min, Pain=0, Vishnu=10, Mccloud=2 12:28:20 HR=83 bpm, UEUB=542/81 mmhg, Resp=20 B/min, Pain=0, Vishnu=10, Mccloud=2 12:28:44 A WIRE, EXCHANGE 260CM 3MMJ 260CM was inserted via Radial (right). 12:29:09 Catheter was removed 12:29:10 Wire removed 12:29:14 Case End 12:33:19 HR=83 bpm, IZHB=062/80 mmhg, SpO2=96.0 %, Resp=19 B/min, Pain=0, Vishnu=10, Mccloud=2 12:33:29 Catheter(s) removed without difficulty Radial Compression Device Used. 15 mLs of air placed in BAND, RADIAL COMPRESSION TR SHORT 24 24 CM. Affected 12:33:55 hand ~O2 SATURATION~ % O2 saturation. 12:34:15 No case complications noted. 12:34:21 Bedside Report will be given. 12:34:26 A Left Heart Cath was performed. 12:38:02 Vitals capture stopped. 12:47:10 [facility] Study - Contrast Media Used In Study Contrast Total Opened (mL) Total Used (mL) Total Wasted (mL) Omnipaque 65 65 0 End Study - Maximum Contrast Load Max Contrast Load (mL) 681.5 End Study - Radiation Exposure Fluoro Time (minutes) 6.6 End Study - Sheaths Sheaths Pulled By Sheath Hold Time (min) Yessenia Lambert End Study - Patient Disposition Complications Transferred To Interventional Outcome No Critical Care Bed No attempt made
--- NOTE | 2018-03-03 13:06 | MA ---
cc: Ambrocio Christiansen MD DATE: 03/03/2018 PROCEDURE PERFORMED: Coronary angiography, abdominal aortography right radial artery approach. DESCRIPTION OF PROCEDURE: The patient was brought to the cardiac catheterization lab under urgent conditions. The right groin and right wrist were prepped and draped in sterile fashion. Using 1% lidocaine for local anesthesia a Terumo slender sheath was inserted in the right radial artery. Coronary angiography was performed using a [place] catheter. A straight pigtail catheter was then used to obtain abdominal aortogram. Films were studied. I consulted with the family and consulted with Dr. Price. Intervention is not being performed while discussion is being entertained about possible bypass. FINDINGS: 1. Hemodynamics: The aortic pressure was 89/57 with a mean of 71. 2. Coronary angiography: Left main coronary artery appears to have a stent from the ostium stopping before the bifurcation. The distal left main has 75% disease. The ostium of the LAD has 70% disease. The remainder of the LAD and diagonal has irregularities. The circumflex artery has a tubular 99% ostial stenosis. There is one bifurcating marginal branch given off. The right coronary artery is dominant. There is a 99% mid stenosis. Distal vessel was difficult to see due to collateral flow, but suspect there is distal disease as well. There were left to right collaterals. 3. Abdominal aortogram: The abdominal aortogram shows diffuse disease of the abdominal aorta and iliac arteries. The origin of the left renal artery appears okay. There is probably 50% eccentric disease of the right renal artery at this ulceration. There is at least a 30% ulcerated area within the aorta above the bifurcation. The right iliac artery has an eccentric at least 70% stenosis and the right internal iliac artery is totally occluded. The right external iliac artery is severely diseased distally. The left iliac artery is diffusely irregular. The internal iliac is patent. There is room for a balloon pump or Impella device, although, as mentioned, there is an ulcerative disease within the aorta. CONCLUSIONS: Critical coronary artery disease with severe disease of the left main and LAD and critical disease of the circumflex and right coronary artery. PLAN: The patient has horrible lung disease, but consideration is being given to possible bypass surgery since this is probably her best option to survive. Ambrocio Christiansen MD VEW/TL , 12:39 PM , 01:05 PM
--- NOTE | 2018-03-03 13:46 | ECHRPT ---
Indication: CAD CONCLUSIONS The left ventricular systolic function is moderately reduced with an estimated ejection fraction in the range of 40-45%. Inferoposterior hypokinesis. Wall thickness is normal. Normal left ventricular size. Mitral annular calcification is present. Moderate mitral valve regurgitation. Diffuse calcification of the aortic valve. Mild aortic valve stenosis. BP: / HR: Rhythm: Sinus MEASUREMENTS (Male / Female) Normal Values Technical Quality:Fair 2D ECHO LV Diastolic Diameter PLAX 4.3 cm 4.2 - 5.9 / 3.9 - 5.3 cm LV Systolic Diameter PLAX 3.7 cm IVS Diastolic Thickness 0.9 cm 0.6 - 1.0 / 0.6 - 0.9 cm LVPW Diastolic Thickness 0.9 cm 0.6 - 1.0 / 0.6 - 0.9 cm LV Relative Wall Thickness 0.4 LVOT Diameter 2.0 cm LA Systolic Diameter LX 3.7 cm 3.0 - 4.0 / 2.7 - 3.8 cm DOPPLER AV Peak Velocity 310.0 cm/s AV Peak Gradient 38.4 mmHg AV Mean Gradient 19.0 mmHg AV Velocity Time Integral 49.7 cm LVOT Peak Velocity 119.0 cm/s LVOT Peak Gradient 5.7 mmHg LVOT Velocity Time Integral 20.4 cm AV Area Cont Eq vti 1.3 cm AV Area Cont Eq pk 1.3 cm MV Area PHT 6.7 cm Mitral E Point Velocity 123.0 cm/s Mitral A Point Velocity 125.0 cm/s Mitral E to A Ratio 1.0 LV E' Lateral Velocity 8.4 cm/s Mitral E to LV E' Lateral Ratio 14.7 LV E' Septal Velocity 6.7 cm/s Mitral E to LV E' Septal Ratio 18.3 FINDINGS LEFT VENTRICLE The left ventricular systolic function is moderately reduced with an estimated ejection fraction in the range of 40-45%. Inferoposterior hypokinesis. Wall thickness is normal. Normal left ventricular size. RIGHT VENTRICLE Normal right ventricular size and systolic function. LEFT ATRIUM The left atrial size is normal. RIGHT ATRIUM The right atrial size is normal. ATRIAL SEPTUM Normal atrial septal thickness without atrial level shunting by limited color doppler interrogation. AORTA The aortic root and proximal ascending aorta are normal in size on limited imaging. MITRAL VALVE Mitral annular calcification is present. Moderate mitral valve regurgitation. AORTIC VALVE Trileaflet aortic valve. Diffuse calcification of the aortic valve. Mild aortic valve stenosis. Aortic valve area is 1.3 cm. Aortic valve mean gradient is 19 mmHg. TRICUSPID VALVE Structurally normal tricuspid valve. No tricuspid valve stenosis or regurgitation. PULMONARY VALVE The pulmonary valve is not well visualized. VESSELS The inferior vena cava is normal in size. PERICARDIUM No pericardial effusion. Aisha Sarmiento MD, FACC (Electronically Signed) Final Date:03 Mar 2018 13:46
--- NOTE | 2018-03-03 17:11 | EKG ---
Date Performed: 03/03/2018 Time Performed: 00:11:32 PTAGE: 67 years EKG: Sinus rhythm with borderline 1st degree A-V block Inferior infarct - age undetermined Lateral ST-T changes Abnorm al ECG PREVIOUS TRACING : 03/02/2018 21.13 Since the previous tracing, no significant change noted DOCTOR: Aisha Sarmiento Interpretating Date/Time 03/03/2018 17:11:08
--- NOTE | 2018-03-03 17:18 | EKG ---
Date Performed: 03/02/2018 Time Performed: 21:13:18 PTAGE: 67 years EKG: Sinus rhythm with borderline 1st degree A-V block Inferior infarct - age undetermined Diffuse ST-T changes Abnorm al ECG PREVIOUS TRACING : 03/02/2018 14.04 Since the previous tracing, no significant change noted DOCTOR: Aisha Sarmiento Interpretating Date/Time 03/03/2018 17:17:24
[2018-03-03] MEDS ORDERED: methylPREDNISolone SOD SUCC 40 MG/1 ML VIAL IV PUSH ONE (19:15)
--- NOTE | 2018-03-03 19:31 | HHI.PR ---
Subjective Remarks Patient seen this afternoon around 7 PM. Nursing reports that patient began with shortness of breath worsening about 1 hour ago. Heart rate initially controlled after catheterization, however and up to 10 8 bpm. Patient denies any chest pain. She does report shortness of breath over the past hour. Denies any nausea or vomiting. Objective Vital Signs Date Time Temp Pulse Resp B/P (MAP) Pulse Ox O2 Delivery O2 Flow Rate FiO2 03/03/18 18:47 93 Nasal Cannula 3.00 03/03/18 18:44 93 Nasal Cannula 6.00 03/03/18 16:00 97 Nasal Cannula 3.00 03/03/18 15:00 98.7 83 18 132/73 (92) 94 03/03/18 15:00 82 03/03/18 13:00 98.5 81 18 125/75 (92) 95 03/03/18 13:00 81 03/03/18 13:00 94 Nasal Cannula 3.00 03/03/18 11:02 98.0 120 24 159/80 (106) 92 03/03/18 10:00 108 03/03/18 09:00 112 03/03/18 08:12 93 Nasal Cannula 3.00 03/03/18 08:00 90 03/03/18 07:57 93 Nasal Cannula 3.00 03/03/18 07:57 97.7 109 24 145/74 (97) 93 03/03/18 07:00 110 03/03/18 06:00 95 03/03/18 05:00 96 03/03/18 04:00 97 03/03/18 04:00 98.2 97 24 156/85 (108) 92 03/03/18 03:00 98 03/03/18 02:00 95 03/03/18 01:00 92 03/03/18 00:00 Nasal Cannula 3.00 03/03/18 00:00 97.4 99 24 151/71 (97) 95 03/03/18 00:00 99 03/02/18 23:00 92 03/02/18 22:00 95 03/02/18 21:00 89 03/02/18 20:57 95 Nasal Cannula 3.00 03/02/18 20:00 87 03/02/18 20:00 97.9 89 24 154/82 (106) 94 03/02/18 20:00 Nasal Cannula 3.00 I/O 03/02/18 03/02/18 03/02/18 03/03/18 03/03/18 03/03/18 06:59 14:59 22:59 06:59 14:59 22:59 Intake Total 240 ml 480 ml Output Total 500 ml 300 ml Balance -260 ml 180 ml Intake Oral 240 ml 480 ml Output Urine Total 500 ml 300 ml # Bowel Movements 0 Result Diagram: 03/02/18 1400 03/02/18 1400 Objective Remarks GENERAL: Patient sitting up in bed. Appears short of breath. Alert and oriented. SKIN: Warm and dry. HEAD: Normocephalic. EYES: No scleral icterus. No injection or drainage. NECK: Supple, trachea midline. No JVD. CARDIOVASCULAR: Regular rate and rhythm without murmurs, gallops, or rubs. RESPIRATORY: Distant breath sounds secondary to body habitus. No accessory muscle use. GASTROINTESTINAL: Abdomen soft, non-tender, nondistended. MUSCULOSKELETAL: No cyanosis, or edema. BACK: Nontender without obvious deformity. No CVA tenderness. A/P Assessment and Plan 67-year-old female with past medical history significant for coronary artery disease status post previous GA with cardiac stenting, COPD with chronic respiratory insufficiency on 3 L of oxygen at home 24 7, dyslipidemia, trigeminal neuralgia, hypertension, hypothyroidism, anxiety and depression who presents to [facility] ED with complaints of profound fatigue, dyspnea on exertion, chest discomfort and left-sided facial pain. //NSTEMI CAD s/p GA x 2, previous cardiac stenting Initial trop 0.10 EKG shows a sinus rhythm with no acute ST segment elevation or depression. -Continue heparin drip -Continue to trend cardiac enzymes and EKGs -monitor on telemetry -Consult cardiology, appreciate assistance -Give metoprolol 25 mg 1 dose now and continue twice daily -Continue Nitro paste -Lipitor 40 mg now and continue daily -Hold Plavix. Continue aspirin 81 mg daily = Status post cardiac cath. Cardiothoracic surgery consultation for possible CABG. //COPD. Chronic respiratory insufficiency, O2 dependent on 3 L at home Chest x-ray reveals mild hyperinflation, minimal bibasilar parenchymal changes, stable, images reviewed by me -Continue supplemental oxygen to maintain O2 sats greater than 92% -Continue to monitor respiratory status -Continue home dose of Daliresp and Spiriva -Duonebs prn = 5/13 in the afternoon with worsening shortness of breath. What appears to be exacerbation of COPD. Also tachycardic as patient was before cath. Possibly verapamil during cath improved heart rate improving symptoms. Will order metoprolol IV, continue patient's home metoprolol. Stat chest x-ray, ABG. IV Solu-Medrol, duo nebs. Pulmonology consultation. //Hypertension, chronic, elevated at presentation but now better controlled -Resume patient on home dose of Norvasc 10 mg daily, Metoprolol 25mg BID and Isosorbide 30mg daily -Continue to monitor BP and adjust treatment accordingly //Trigeminal neuralgia, possible exacerbation Left sided facial pain Given IV Solumedrol x 1 dose in ED -will hold off on continuation of steroids at this time due to NSTEMI and that left sided facial pain is cardiogenic //Anxiety Depression -resume home dose of scheduled Xanax 0.5mg BID and Wellbutrin //DVT prophylaxis -Patient on heparin Ancelmo Pepper MD March 03, 2018 19:31
--- NOTE | 2018-03-03 19:37 | RADRPT ---
EXAM DATE/TIME: 03/03/2018 20:25 [place] COMPARISON: CHEST SINGLE AP, March 02, 2018, 14:06. INDICATIONS : Short of breath MEDICAL HISTORY : Chronic obstructive pulmonary disease. Cardiovascular disease. SURGICAL HISTORY : Coronary artery stent. ENCOUNTER: Subsequent ACUITY: 2 days PAIN SCORE: 0/10 LOCATION: chest FINDINGS: A single view of the chest demonstrates bibasilar densities without evidence of mass, infiltrate or e ffusion. The cardiomediastinal contours are unremarkable. Osseous structures are intact. CONCLUSION: Bibasilar densities, unchanged. Jeovany Ludwig MD on March 03, 2018 at 19:34 Board Certified Radiologist. This report was verified electronically.
[2018-03-03] MEDS ORDERED: RESP: ALBUTEROL 2.5 MG/IPRATROPIUM 0.5 MG NEB (SCH) NEB ONE (19:45)
[2018-03-03 20:18] LABS: BICARBONATE 27.1 MEQ/L (21.0-32.0); CALCIUM 9.2 MG/DL (8.5-10.1); CREATININE 0.78 MG/DL (0.50-1.00)
[2018-03-03 20:32] LABS: AUTOMATED NEUTROPHIL # 16.6 TH/MM3 (1.8-7.7); BASOPHIL % 0.1 % (0.0-2.0); HEMATOCRIT 33.8 % (35.0-46.0); HEMOGLOBIN 11.9 GM/DL (11.6-15.3); LYMPH % 7.9 % (9.0-44.0); LYMPHOCYTE # 1.5 TH/MM3 (1.0-4.8); MEAN CELL VOLUME 84.6 FL (80.0-100.0); MEAN CORPUSCULAR HEMOGLOBIN 29.7 PG (27.0-34.0); MEAN CORPUSCULAR HGB CONC 35.1 % (32.0-36.0); MEAN PLATELET VOLUME 8.8 FL (7.0-11.0); MONO % 6.1 % (0.0-8.0); MONOCYTE # 1.2 TH/MM3 (0-0.9); NEUT % 85.9 % (16.0-70.0); PLATELET COUNT 247 TH/MM3 (150-450); RED BLOOD COUNT 3.99 MIL/MM3 (4.00-5.30); RED CELL DISTRIBUTION WIDTH 13.6 % (11.6-17.2); WHITE BLOOD COUNT 19.3 TH/MM3 (4.0-11.0)
[2018-03-03] MEDS ORDERED: SODIUM CHLORIDE 0.9% FLUSH 10 ML FLUSH IV FLUSH SCH (21:00)
[2018-03-03] MEDS ORDERED: ATORVASTATIN 40 MG TAB PO SCH (21:00)
[2018-03-03] MEDS: BUDESONIDE-FORMOTEROL 160/4.5 MCG INHALER INH SCH (21:00)
[2018-03-03] MEDS: METOPROLOL TARTRATE 5 MG/5 ML VIAL IV PUSH PRN ×2 (21:08→21:15)
[2018-03-03] MEDS ORDERED: LORazepam 2 MG/ML VIAL IV PUSH ONE (21:15)
[2018-03-03] MEDS ORDERED: MORPHINE SULFATE 4 MG/ML INJ IV PUSH ONE (22:45)
[2018-03-03] MEDS ORDERED: MORPHINE SULFATE 4 MG/ML INJ ONE (22:46)
[2018-03-04] VITALS (7 sets, daily range): BP systolic 123–139; BP diastolic 73–77; PULSE 84–110; RESP 18–20; TEMP 97.6–98.7; O2SAT 89–97
[2018-03-04] MEDS: methylPREDNISolone SOD SUCC 40 MG/1 ML VIAL IV PUSH SCH ×2 (02:00→05:15)
[2018-03-04 04:29] LABS: AUTOMATED NEUTROPHIL # 18.5 TH/MM3 (1.8-7.7); BASOPHIL % 0.1 % (0.0-2.0); HEMATOCRIT 37.9 % (35.0-46.0); HEMOGLOBIN 12.5 GM/DL (11.6-15.3); LYMPH % 3.9 % (9.0-44.0); LYMPHOCYTE # 0.8 TH/MM3 (1.0-4.8); MEAN CELL VOLUME 87.1 FL (80.0-100.0); MEAN CORPUSCULAR HEMOGLOBIN 28.6 PG (27.0-34.0); MEAN CORPUSCULAR HGB CONC 32.9 % (32.0-36.0); MEAN PLATELET VOLUME 9.2 FL (7.0-11.0); MONO % 1.1 % (0.0-8.0); MONOCYTE # 0.2 TH/MM3 (0-0.9); NEUT % 94.9 % (16.0-70.0); PLATELET COUNT 246 TH/MM3 (150-450); RED BLOOD COUNT 4.36 MIL/MM3 (4.00-5.30); RED CELL DISTRIBUTION WIDTH 13.4 % (11.6-17.2); WHITE BLOOD COUNT 19.5 TH/MM3 (4.0-11.0)
[2018-03-04] MEDS: RESP: ALBUTEROL 2.5 MG/IPRATROPIUM 0.5 MG NEB (PRN) NEB ×3 (04:45→11:09)
[2018-03-04 05:13] LABS: BICARBONATE 31.8 MEQ/L (21.0-32.0); CALCIUM 9.1 MG/DL (8.5-10.1); CREATININE 0.79 MG/DL (0.50-1.00)
[2018-03-04] MEDS: ISOSORBIDE MONONITRATE 30 MG CR TAB (IMDUR) PO SCH (06:44)
--- NOTE | 2018-03-04 07:47 | PD.CAR.PN ---
CVT Progress Note Subjective/Hospital Course: Dyspneic overnight with anxiety and desaturation episodes. Currently resting on bipap. Objective: Vital Signs Date Time Temp Pulse Resp B/P (MAP) Pulse Ox O2 Delivery O2 Flow Rate FiO2 03/04/18 07:34 110 03/04/18 07:15 95 Bi-Pap 40 03/04/18 07:15 97.6 88 18 139/77 (97) 95 03/04/18 04:46 96 40 03/04/18 03:00 98.7 84 20 123/73 (90) 95 03/04/18 03:00 84 03/04/18 00:50 96 40 03/03/18 23:00 95 Bi-Pap 50 03/03/18 23:00 97.9 102 24 135/76 (95) 95 03/03/18 23:00 102 03/03/18 22:00 89 Bi-Pap 50 03/03/18 21:34 92 40 03/03/18 21:00 88 Venturi Mask 6.00 50 03/03/18 20:39 85 Nasal Cannula 4.00 03/03/18 20:30 87 Simple Mask 6.00 03/03/18 20:00 89 Nasal Cannula 6.00 03/03/18 19:00 102 03/03/18 19:00 98.9 102 32 155/75 (101) 88 03/03/18 19:00 88 Nasal Cannula 3.00 03/03/18 18:47 93 Nasal Cannula 3.00 03/03/18 18:44 93 Nasal Cannula 6.00 03/03/18 16:00 97 Nasal Cannula 3.00 03/03/18 15:00 98.7 83 18 132/73 (92) 94 03/03/18 15:00 82 03/03/18 13:00 98.5 81 18 125/75 (92) 95 03/03/18 13:00 81 03/03/18 13:00 94 Nasal Cannula 3.00 03/03/18 11:02 98.0 120 24 159/80 (106) 92 03/03/18 10:00 108 03/03/18 09:00 112 03/03/18 08:12 93 Nasal Cannula 3.00 03/03/18 08:00 90 03/03/18 07:57 93 Nasal Cannula 3.00 5/13/18 07:57 97.7 109 24 145/74 (97) 93 Labs: Laboratory Tests Test 03/03/18 19:45 03/03/18 19:47 03/03/18 20:24 03/04/18 03:39 Blood Gas Puncture Site LT RADIAL Blood Gas Patient Temperature 98.6 Blood Gas HCO3 29 mmol/L (22-26) Blood Gas Base Excess 5.0 mmol/L (-2-2) Blood Gas Oxygen Saturation 93 % (90-100) Arterial Blood pH 7.44 (7.380-7.420) Arterial Blood Partial Pressure CO2 44 mmHg (38-42) Arterial Blood Partial Pressure O2 76 mmHg (61-120) Arterial Blood Oxygen Content 15.8 Vol % (12.0-20.0) Arterial Blood Carboxyhemoglobin 1.0 % (0-4) Arterial Blood Methemoglobin 1.3 % (0-2) Blood Gas Hemoglobin 12.1 G/DL (12.0-16.0) Oxygen Delivery Device NASAL CANNULA Blood Gas Liter Flow 3.5 L/M White Blood Count 19.3 TH/MM3 (4.0-11.0) 19.5 TH/MM3 (4.0-11.0) Red Blood Count 3.99 MIL/MM3 (4.00-5.30) 4.36 MIL/MM3 (4.00-5.30) Hemoglobin 11.9 GM/DL (11.6-15.3) 12.5 GM/DL (11.6-15.3) Hematocrit 33.8 % (35.0-46.0) 37.9 % (35.0-46.0) Mean Corpuscular Volume 84.6 FL (80.0-100.0) 87.1 FL (80.0-100.0) Mean Corpuscular Hemoglobin 29.7 PG (27.0-34.0) 28.6 PG (27.0-34.0) Mean Corpuscular Hemoglobin Concent 35.1 % (32.0-36.0) 32.9 % (32.0-36.0) Red Cell Distribution Width 13.6 % (11.6-17.2) 13.4 % (11.6-17.2) Platelet Count 247 TH/MM3 (150-450) 246 TH/MM3 (150-450) Mean Platelet Volume 8.8 FL (7.0-11.0) 9.2 FL (7.0-11.0) Neutrophils (%) (Auto) 85.9 % (16.0-70.0) 94.9 % (16.0-70.0) Lymphocytes (%) (Auto) 7.9 % (9.0-44.0) 3.9 % (9.0-44.0) Monocytes (%) (Auto) 6.1 % (0.0-8.0) 1.1 % (0.0-8.0) Eosinophils (%) (Auto) 0.0 % (0.0-4.0) 0.0 % (0.0-4.0) Basophils (%) (Auto) 0.1 % (0.0-2.0) 0.1 % (0.0-2.0) Neutrophils # (Auto) 16.6 TH/MM3 (1.8-7.7) 18.5 TH/MM3 (1.8-7.7) Lymphocytes # (Auto) 1.5 TH/MM3 (1.0-4.8) 0.8 TH/MM3 (1.0-4.8) Monocytes # (Auto) 1.2 TH/MM3 (0-0.9) 0.2 TH/MM3 (0-0.9) Eosinophils # (Auto) 0.0 TH/MM3 (0-0.4) 0.0 TH/MM3 (0-0.4) Basophils # (Auto) 0.0 TH/MM3 (0-0.2) 0.0 TH/MM3 (0-0.2) CBC Comment DIFF FINAL DIFF FINAL Differential Comment Blood Urea Nitrogen 27 MG/DL (7-18) 31 MG/DL (7-18) Creatinine 0.78 MG/DL (0.50-1.00) 0.79 MG/DL (0.50-1.00) Random Glucose 128 MG/DL (74-106) 152 MG/DL (74-106) Calcium Level 9.2 MG/DL (8.5-10.1) 9.1 MG/DL (8.5-10.1) Sodium Level 138 MEQ/L (136-145) 139 MEQ/L (136-145) Potassium Level 4.1 MEQ/L (3.5-5.1) 4.6 MEQ/L (3.5-5.1) Chloride Level 101 MEQ/L (98-107) 100 MEQ/L (98-107) Carbon Dioxide Level 27.1 MEQ/L (21.0-32.0) 31.8 MEQ/L (21.0-32.0) Anion Gap 10 MEQ/L (5-15) 7 MEQ/L (5-15) Estimat Glomerular Filtration Rate 74 ML/MIN (>89) 73 ML/MIN (>89) B-Type Natriuretic Peptide 687 PG/ML (0-100) Activated Partial Thromboplast Time 38.5 SEC (24.3-30.1) 62.2 SEC (24.3-30.1) Result Diagram: 03/04/18 0339 03/04/18 0339 Imaging: Last Impressions Chest X-Ray 03/03/18 0000 Signed Impressions: Service Date/Time: Saturday, March 03, 2018 20:25 - CONCLUSION: Bibasilar densities, unchanged. 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 Patton. Her lung function is end-stage and she is not an operative candidate for CABG. I discussed this with her daughter and will see if Dr. Green at [facility] can review her films as he treated her left main with high-risk PCI ~10 yrs ago. Rika Mark MD March 04, 2018 07:47
[2018-03-04] MEDS ORDERED: IOHEXOL 350 MG/ML 100 ML BTL (for Cath Lab) OTHER ONE (08:02)
[2018-03-04] MEDS: ALPRAZolam 0.5 MG TAB PO SCH (08:33)
[2018-03-04] MEDS: ASPIRIN EC 81 MG TABEC PO SCH (08:34)
[2018-03-04] MEDS: buPROPion HCL 150 MG SUSTAINED RELEASE TAB PO SCH (08:34)
[2018-03-04] MEDS: METOPROLOL TARTRATE 25 MG TAB PO SCH (08:34)
[2018-03-04] MEDS: BUDESONIDE-FORMOTEROL 160/4.5 MCG INHALER INH SCH (08:48)
[2018-03-04] MEDS: TIOTROPIUM BROMIDE 18 MCG INH INH SCH (08:49)
[2018-03-04] MEDS: SODIUM CHLORIDE 0.9% FLUSH 10 ML FLUSH IV FLUSH SCH (08:51)
[2018-03-04] MEDS: ROFLUMILAST 500 MCG TAB PO SCH (08:52)
[2018-03-04] MEDS ORDERED: LORazepam 2 MG/ML VIAL IV PUSH ONE (10:00)
[2018-03-04] MEDS ORDERED: MORPHINE SULFATE 2 MG/ML SYRINGE IM ONE (10:00)
[2018-03-04] MEDS ORDERED: HYDR-3516 PO (10:03)
[2018-03-04] MEDS ORDERED: ATOR40TA16 PO (10:03)
[2018-03-04] MEDS ORDERED: ECASA81 PO (10:03)
--- NOTE | 2018-03-04 10:06 | HHI.DS ---
Discharge Summary Admission Date March 02, 2018 at 15:35 Discharge Date: March 04, 2018 Admitting Diagnosis NSTEMI, dyspnea (1) NSTEMI (non-ST elevated myocardial infarction) ICD Code: I21.4 - Non-ST elevation (NSTEMI) myocardial infarction (2) COPD exacerbation ICD Code: J44.1 - Obstructive chronic bronchitis with exacerbation Status: Acute (3) Elevated troponin ICD Code: R79.89 - Other specified abnormal findings of blood chemistry Status: Acute Procedures cardiac cath Brief History - From Admission This is a 67-year-old female with past medical history significant for coronary artery disease status post previous [place] with cardiac stenting, COPD with chronic respiratory insufficiency on 3 L of oxygen at home 14/05, dyslipidemia, left sided trigeminal neuralgia, hypertension, hypothyroidism, anxiety and depression who presents to [facility] ED with complaints of profound fatigue , dyspnea on exertion, chest discomfort and left-sided facial pain. Patient's daughters at the bedside and provides much of the history. Patient has chronic shortness of breath developed a sudden onset of extreme dyspnea today with minimal exertion walking from the bedroom to the bathroom. Patient reports associated midsternal chest discomfort with radiation to the back and down the left arm. Additionally, patient reports worsening left-sided facial pain that she originally thought was due to exacerbation of her trigeminal neuralgia but reports she has had previous MIs that presented with facial pain. Patient reports taking nitroglycerin at home with some improvement. She admits that she has been taking nitroglycerin all week because of increased left-sided facial pain. She reports some cough but no sputum production. She denies any associated nausea vomiting or abdominal pain. She denies any dizziness, headache or diaphoresis. She reports taking her normal full dose aspirin and Plavix at the house today but has not taken her metoprolol. She denies any lower extremity swelling. She follows with Dr. Ochoa as an outpatient. In the ED, her initial troponin was elevated 0.10. EKG shows no ST segment abnormalities. Patient was started on Heparin drip and cardiology has been consulted. CBC/BMP: 03/04/18 0339 03/04/18 0339 Significant Findings Laboratory Tests Test 03/02/18 14:00 03/02/18 17:55 03/02/18 20:01 03/02/18 22:07 Neutrophils (%) (Auto) 70.7 % (16.0-70.0) Carbon Dioxide Level 33.8 MEQ/L (21.0-32.0) Estimat Glomerular Filtration Rate 81 ML/MIN (>89) Troponin I 0.10 NG/ML (0.02-0.05) 0.84 NG/ML (0.02-0.05) B-Type Natriuretic Peptide 206 PG/ML (0-100) Platelet Function P2Y12 React Units 164 PRU (194-418) Activated Partial Thromboplast Time 53.9 SEC (24.3-30.1) Test 03/03/18 01:53 03/03/18 05:00 03/03/18 13:30 03/03/18 19:45 Troponin I 2.25 NG/ML (0.02-0.05) Activated Partial Thromboplast Time 58.4 SEC (24.3-30.1) Blood Gas HCO3 29 mmol/L (22-26) 29 mmol/L (22-26) Blood Gas Base Excess 4.5 mmol/L (-2-2) 5.0 mmol/L (-2-2) Arterial Blood pH 7.37 (7.380-7.420) 7.44 (7.380-7.420) Arterial Blood Partial Pressure CO2 52 mmHg (38-42) 44 mmHg (38-42) Blood Gas Hemoglobin 11.5 G/DL (12.0-16.0) Test 03/03/18 19:47 03/03/18 20:24 03/04/18 03:39 White Blood Count 19.3 TH/MM3 (4.0-11.0) 19.5 TH/MM3 (4.0-11.0) Red Blood Count 3.99 MIL/MM3 (4.00-5.30) Hematocrit 33.8 % (35.0-46.0) Neutrophils (%) (Auto) 85.9 % (16.0-70.0) 94.9 % (16.0-70.0) Lymphocytes (%) (Auto) 7.9 % (9.0-44.0) 3.9 % (9.0-44.0) Neutrophils # (Auto) 16.6 TH/MM3 (1.8-7.7) 18.5 TH/MM3 (1.8-7.7) Monocytes # (Auto) 1.2 TH/MM3 (0-0.9) Blood Urea Nitrogen 27 MG/DL (7-18) 31 MG/DL (7-18) Random Glucose 128 MG/DL (74-106) 152 MG/DL (74-106) Estimat Glomerular Filtration Rate 74 ML/MIN (>89) 73 ML/MIN (>89) B-Type Natriuretic Peptide 687 PG/ML (0-100) Activated Partial Thromboplast Time 38.5 SEC (24.3-30.1) 62.2 SEC (24.3-30.1) Lymphocytes # (Auto) 0.8 TH/MM3 (1.0-4.8) Imaging Last Impressions Chest X-Ray 03/03/18 0000 Signed Impressions: Service Date/Time: Saturday, March 03, 2018 20:25 - CONCLUSION: Bibasilar densities, unchanged. Jeovany Ludwig MD PE at Discharge On nasal cannula, diminished breath sounds in the bases, lying in bed, mild conversive dyspnea, heart sounds muffled Hospital Course Patient was admitted to cardiac ICU. Cardiology was consulted, performed cardiac catheterization and saw multivessel disease. Cardiothoracic surgery was consulted, deemed the patient a poor CABG candidate due to her significant lung disease per her animal feeder's input. CT surgery coordinated transfer of care to [facility] where patient previously had PCI done. Patient was stabilized on BiPAP and oxygen supplementation. Frequently needed morphine and benzodiazepines for pain and anxiety control. Patient has met maximal benefit from hospitalization and is clinically stable for transfer to another medical facility. Pt Condition on Discharge: Stable Discharge Disposition: Disch to Another Hospital Discharge Time: <= 30 minutes Discharge Instructions DIET: Follow Instructions for: Heart Healthy Diet Activities you can perform: Continue Bedrest New Medications: Aspirin DR (Aspirin DR) 81 Mg Tabdr 81 MG PO DAILY for Blood Clot Prevention, #30 TAB Atorvastatin (Atorvastatin) 40 Mg Tab 40 MG PO HS for Cholesterol Management, #30 TAB Hydrocodone/Acetaminophen (Hydrocodone-Acetamin 5-325 mg) 5 Mg-325 Mg Tablet 1 TAB PO Q6H PRN for pain>5, #60 TAB Continued Medications: Alprazolam (Xanax) 0.5 Mg Tab 0.5 MG PO BID PRN for ANXIETY, TAB 0 Refills Amlodipine (Amlodipine) 10 Mg Tab 10 MG PO DAILY for Blood Pressure Management, #30 TAB 0 Refills Ascorbic Acid (Vitamin C) 250 Mg Tab 500 MG PO DAILY for Nutritional Supplement, TAB 0 Refills Bupropion HCl ER 24 HR (Wellbutrin Xl 24 HR) 150 Mg Tab 150 MG PO BID for Control Depression, TAB 0 Refills Calcium Carbonate-Vitamin D Chew (Caltrate 600+D Chew) 600-400 Mg-Unit Chew 1 TAB PO BID for Nutritional Supplement, EA 0 Refills Docusate Sodium (Stool Softener) 100 Mg Cap 1 CAP PO BID, CAP Fluticasone-Salmeterol Inh (Advair Diskus Inh) 250-50 Mcg/Blist Aer 2 PUFF INH BID, #1 INHALER 0 Refills Rinse mouth after use. Ipratropium-Albuterol Neb (Duoneb) 0.5-2.5 Mg/3 Ml Neb 3 ML NEB Q4HR PRN for SHORTNESS OF BREATH, #30 NEBULE 0 Refills Isosorbide Mononitrate ER (Isosorbide Mononitrate ER) 30 Mg Winifred 30 MG PO DAILY for Prevent Chest Pain, #30 TAB 0 Refills Metoprolol Tartrate (Metoprolol Tartrate) 25 Mg Tab 25 MG PO BID for Blood Pressure Management, #60 TAB Multiple Vitamin (Multiple Vitamin) 1 Tab 1 TAB PO DAILY for Nutritional Supplement, TAB 0 Refills Roflumilast (Daliresp) 500 Mcg Tab 500 MCG PO DAILY for COPD, #30 TAB 0 Refills Tiotropium Inh (Spiriva Handihaler) 18 Mcg Cap 18 MCG INH DAILY for COPD, #30 CAP 0 Refills 1 capsule = 18 mcg Discontinued Medications: Aspirin (Aspirin) 325 Mg Tab 325 MG PO DAILY, #30 TAB 0 Refills Atorvastatin (Lipitor) 80 Mg Tab 80 MG PO HS for Cholesterol Management, #30 TAB 0 Refills Azithromycin (Azithromycin) 250 Mg Tab 250 MG PO MoWeFr for Infection, #6 TAB 0 Refills Take 1 tablet (250mg) daily on Sunday,Sunday and Sunday Clopidogrel (Plavix) 75 Mg Tab 75 MG PO DAILY for Blood Clot Prevention, #30 TAB 0 Refills Panchito Natarajan MD March 04, 2018 10:06
--- NOTE | 2018-03-04 11:44 | PD.CARD.PN ---
Subjective Subjective Remarks no pain at present but needing CPAP Objective Medications Current Medications Medications (Trade) Dose Ordered Sig/Matthew Route Start Time Stop Time Status Last Admin (Heparin Inj) 5,000 units UNSCH PRN IV PUSH 03/02/18 21:15 (Heparin Inj) 2,500 units UNSCH PRN IV PUSH 03/02/18 21:15 03/03/18 22:00 Heparin Sodium/ Dextrose 250 ml @ 10 mls/hr TITRATE PRN IV 03/02/18 15:15 03/02/18 15:37 (NS Flush) 2 ml UNSCH PRN IV FLUSH 03/02/18 15:30 (NS Flush) 2 ml BID IV FLUSH 03/02/18 21:00 03/04/18 08:51 (Tylenol) 650 mg Q4H PRN PO 03/02/18 15:30 (Narcan Inj) 0.4 mg UNSCH PRN IV PUSH 03/02/18 15:30 (Milk Of Magnesia Liq) 30 ml Q12H PRN PO 03/02/18 15:30 (Senokot) 17.2 mg Q12H PRN PO 03/02/18 15:30 (Dulcolax Supp) 10 mg DAILY PRN RECTAL 03/02/18 15:30 (Lactulose Liq) 30 ml DAILY PRN PO 03/02/18 15:30 (Duoneb Neb) 1 ampule Q6HR NEB PRN NEB 03/02/18 15:45 03/04/18 11:09 (Lopressor) 25 mg Q12HR PO 03/03/18 09:00 03/04/18 08:34 (Ecotrin Ec) 81 mg DAILY PO 03/03/18 09:00 03/04/18 08:34 (Lipitor) 40 mg HS PO 03/03/18 21:00 03/03/18 20:21 (Norvasc) 10 mg DAILY PO 03/03/18 09:00 03/04/18 08:34 (Daliresp) 500 mcg DAILY PO 03/03/18 09:00 03/04/18 08:52 (Spiriva Inh) 18 mcg DAILY INH 03/03/18 09:00 03/04/18 08:49 (Xanax) 0.5 mg BID PO 03/02/18 21:00 03/04/18 08:33 Nitroglycerin/ Dextrose 250 ml @ 1.5 mls/hr TITRATE PRN IV 03/02/18 17:00 03/02/18 17:06 (Wellbutrin Sr) 150 mg BID PO 03/02/18 21:00 03/04/18 08:34 (Imdur) 30 mg DAILY@0700 PO 03/03/18 07:00 03/04/18 06:44 (Hatch 5-325 Mg) 1 tab Q6H PRN PO 03/03/18 07:00 03/03/18 17:20 (Lopressor Inj) 2.5 mg Q5M PRN IV PUSH 03/03/18 19:15 03/03/18 21:15 (Symbicort 160-4.5 Mcg Inh) 2 puff Q12HR INH 03/03/18 21:00 03/04/18 08:48 (SoluMEDROL INJ) 40 mg Q8HR IV PUSH 03/04/18 02:00 03/04/18 05:15 Vital Signs / I&O Vital Signs Date Time Temp Pulse Resp B/P (MAP) Pulse Ox O2 Delivery O2 Flow Rate FiO2 03/04/18 08:59 Bi-Pap 03/04/18 08:56 97 40 03/04/18 08:35 89 Nasal Cannula 5.00 03/04/18 08:33 Nasal Cannula 5.00 03/04/18 07:34 110 03/04/18 07:15 95 Bi-Pap 40 03/04/18 07:15 97.6 88 18 139/77 (97) 95 03/04/18 04:46 96 40 03/04/18 03:00 98.7 84 20 123/73 (90) 95 03/04/18 03:00 84 03/04/18 00:50 96 40 03/03/18 23:00 95 Bi-Pap 50 03/03/18 23:00 97.9 102 24 135/76 (95) 95 03/03/18 23:00 102 03/03/18 22:00 89 Bi-Pap 50 03/03/18 21:34 92 40 03/03/18 21:00 88 Venturi Mask 6.00 50 03/03/18 20:39 85 Nasal Cannula 4.00 03/03/18 20:30 87 Simple Mask 6.00 03/03/18 20:00 89 Nasal Cannula 6.00 03/03/18 19:00 102 03/03/18 19:00 98.9 102 32 155/75 (101) 88 03/03/18 19:00 88 Nasal Cannula 3.00 03/03/18 18:47 93 Nasal Cannula 3.00 03/03/18 18:44 93 Nasal Cannula 6.00 03/03/18 16:00 97 Nasal Cannula 3.00 03/03/18 15:00 98.7 83 18 132/73 (92) 94 03/03/18 15:00 82 03/03/18 13:00 98.5 81 18 125/75 (92) 95 03/03/18 13:00 81 03/03/18 13:00 94 Nasal Cannula 3.00 I/O 03/03/18 03/03/18 03/03/18 03/04/18 03/04/18 03/04/18 07:00 15:00 23:00 07:00 15:00 23:00 Intake Total 240 ml 480 ml 121 ml Output Total 500 ml 300 ml Balance -260 ml 180 ml 121 ml Intake Oral 240 ml 480 ml 0 ml IV Total 121 ml Output Urine Total 500 ml 300 ml # Voids 1 # Bowel Movements 0 0 Physical Exam Alert, Obese, mild tachypnea chest: diminished BS CV S1S2 RRR Abd soft R wrist OK No edeam Warm/ well perfused Laboratory Laboratory Tests Test 03/03/18 13:30 03/03/18 19:45 03/03/18 19:47 03/03/18 20:24 Blood Gas Puncture Site LT RADIAL LT RADIAL Blood Gas Patient Temperature 98.6 98.6 Blood Gas HCO3 29 mmol/L 29 mmol/L Blood Gas Base Excess 4.5 mmol/L 5.0 mmol/L Blood Gas Oxygen Saturation 93 % 93 % Arterial Blood pH 7.37 7.44 Arterial Blood Partial Pressure CO2 52 mmHg 44 mmHg Arterial Blood Partial Pressure O2 79 mmHg 76 mmHg Arterial Blood Oxygen Content 15.1 Vol % 15.8 Vol % Arterial Blood Carboxyhemoglobin 1.0 % 1.0 % Arterial Blood Methemoglobin 1.3 % 1.3 % Blood Gas Hemoglobin 11.5 G/DL 12.1 G/DL Oxygen Delivery Device NASAL CANNULA NASAL CANNULA Blood Gas Liter Flow 3 L/M 3.5 L/M White Blood Count 19.3 TH/MM3 Red Blood Count 3.99 MIL/MM3 Hemoglobin 11.9 GM/DL Hematocrit 33.8 % Mean Corpuscular Volume 84.6 FL Mean Corpuscular Hemoglobin 29.7 PG Mean Corpuscular Hemoglobin Concent 35.1 % Red Cell Distribution Width 13.6 % Platelet Count 247 TH/MM3 Mean Platelet Volume 8.8 FL Neutrophils (%) (Auto) 85.9 % Lymphocytes (%) (Auto) 7.9 % Monocytes (%) (Auto) 6.1 % Eosinophils (%) (Auto) 0.0 % Basophils (%) (Auto) 0.1 % Neutrophils # (Auto) 16.6 TH/MM3 Lymphocytes # (Auto) 1.5 TH/MM3 Monocytes # (Auto) 1.2 TH/MM3 Eosinophils # (Auto) 0.0 TH/MM3 Basophils # (Auto) 0.0 TH/MM3 CBC Comment DIFF FINAL Differential Comment Blood Urea Nitrogen 27 MG/DL Creatinine 0.78 MG/DL Random Glucose 128 MG/DL Calcium Level 9.2 MG/DL Sodium Level 138 MEQ/L Potassium Level 4.1 MEQ/L Chloride Level 101 MEQ/L Carbon Dioxide Level 27.1 MEQ/L Anion Gap 10 MEQ/L Estimat Glomerular Filtration Rate 74 ML/MIN B-Type Natriuretic Peptide 687 PG/ML Activated Partial Thromboplast Time 38.5 SEC Test 03/04/18 03:39 03/04/18 10:45 White Blood Count 19.5 TH/MM3 Red Blood Count 4.36 MIL/MM3 Hemoglobin 12.5 GM/DL Hematocrit 37.9 % Mean Corpuscular Volume 87.1 FL Mean Corpuscular Hemoglobin 28.6 PG Mean Corpuscular Hemoglobin Concent 32.9 % Red Cell Distribution Width 13.4 % Platelet Count 246 TH/MM3 Mean Platelet Volume 9.2 FL Neutrophils (%) (Auto) 94.9 % Lymphocytes (%) (Auto) 3.9 % Monocytes (%) (Auto) 1.1 % Eosinophils (%) (Auto) 0.0 % Basophils (%) (Auto) 0.1 % Neutrophils # (Auto) 18.5 TH/MM3 Lymphocytes # (Auto) 0.8 TH/MM3 Monocytes # (Auto) 0.2 TH/MM3 Eosinophils # (Auto) 0.0 TH/MM3 Basophils # (Auto) 0.0 TH/MM3 CBC Comment DIFF FINAL Differential Comment Activated Partial Thromboplast Time 62.2 SEC 47.6 SEC Blood Urea Nitrogen 31 MG/DL Creatinine 0.79 MG/DL Random Glucose 152 MG/DL Calcium Level 9.1 MG/DL Sodium Level 139 MEQ/L Potassium Level 4.6 MEQ/L Chloride Level 100 MEQ/L Carbon Dioxide Level 31.8 MEQ/L Anion Gap 7 MEQ/L Estimat Glomerular Filtration Rate 73 ML/MIN Imaging Last 48 hours Impressions Chest X-Ray 03/03/18 0000 Signed Impressions: Service Date/Time: Saturday, March 03, 2018 20:25 - CONCLUSION: Bibasilar densities, unchanged. Jeovany Ludwig MD Chest X-Ray 03/02/18 1401 Signed Impressions: Service Date/Time: Friday, March 02, 2018 14:06 - CONCLUSION: Mild hyperinflation and minimal bibasilar parenchymal changes stable in the interval. Yan Roy MD FACR Assessment and Plan Problem List: (1) COPD (chronic obstructive pulmonary disease) ICD Codes: J44.9 - Chronic obstructive pulmonary disease, unspecified Status: Chronic (2) NSTEMI (non-ST elevated myocardial infarction) ICD Codes: I21.4 - Non-ST elevation (NSTEMI) myocardial infarction Status: Acute (3) CAD (coronary artery disease) ICD Codes: I25.10 - Coronary artery disease Status: Chronic Assessment and Plan Transfer Filippo Campo Dr. Bass. Extremely high risk for PCI. CABG not an option. This is going to require heroics/ Dr. Green is her best option. High risk of mortality. Problem Qualifiers (1) COPD (chronic obstructive pulmonary disease): Qualified Codes: J43.1 - Panlobular emphysema (2) CAD (coronary artery disease): Qualified Codes: I25.110 - Atherosclerotic heart disease of [place] coronary artery with unstable angina pectoris Ambrocio Christiansen MD March 04, 2018 11:44
== END 2018-03-04 12:10 | disposition short-term general hospital (02) | DRG 281 ==
LOC: NEPC 13:48 → NEDA 15:35 → HCIS 18:20 → N06B 18:42 → HCIS 18:43 → HCVI 03-03 12:50
PROVIDERS: ADMIT Hospitalist; ATTEND Hospitalist
PROC: 4A023N7 Measurement of Cardiac Sampling and Pressure, Left Heart, Percutaneous Approach (ICD-10-PCS; 2018-03-02)
PROC: B2111ZZ Fluoroscopy of Multiple Coronary Arteries using Low Osmolar Contrast (ICD-10-PCS; 2018-03-02)
PROC: B4101ZZ Fluoroscopy of Abdominal Aorta using Low Osmolar Contrast (ICD-10-PCS; 2018-03-02)
PROC: 5A09357 Assistance with Respiratory Ventilation, Less than 24 Consecutive Hours, Continuous Positive Airway Pressure (ICD-10-PCS; principal; 2018-03-03)
DX: I21.4 Non-ST elevation (NSTEMI) myocardial infarction (principal); J44.1 Chronic obstructive pulmonary disease with (acute) exacerbation; E87.3 Alkalosis; Z99.81 Dependence on supplemental oxygen; N19 Unspecified kidney failure; I25.2 Old myocardial infarction; E78.5 Hyperlipidemia, unspecified; G50.0 Trigeminal neuralgia; I10 Essential (primary) hypertension; F32.9 Major depressive disorder, single episode, unspecified; F41.9 Anxiety disorder, unspecified; I25.110 Atherosclerotic heart disease of native coronary artery with unstable angina pectoris; E66.01 Morbid (severe) obesity due to excess calories; E89.0 Postprocedural hypothyroidism; Z90.49 Acquired absence of other specified parts of digestive tract; R68.84 Jaw pain; R06.89 Other abnormalities of breathing; J43.1 Panlobular emphysema; Z68.36 Body mass index [BMI] 36.0-36.9, adult; Z95.5 Presence of coronary angioplasty implant and graft; Z87.442 Personal history of urinary calculi; Z87.891 Personal history of nicotine dependence; Z88.8 Allergy status to other drugs, medicaments and biological substances; Z79.82 Long term (current) use of aspirin; Z79.02 Long term (current) use of antithrombotics/antiplatelets
CPT/HCPCS: 36600; 71045; 80048; 80053; 82805; 83880; 84484; 85025; 85379; 85576; 85610; 85730; 93005; 93306; 93454; 93567; 94002; 94003; 94640; 94664; 96374; 96375; 99152; 99153; C1769; C1893; J0780; J1200; J1644; J2060; J2250; J2270; J2920; J2930; J3010; J7030; Q9967